=== PATIENT | male | born 1940 | race Caucasian/White ===

== ENCOUNTER → 2017-10-29 | Outpatient (CLI) | payer BC, OTHER, MEDICARE ==
[2017-10-29 09:18] LABS: BASO % 0.5 % (0.0-1.0); EOS # 0.2 10^3/uL (0.0-0.50); EOS % 3.8 % (0.0-3.0); HEMATOCRIT 43.2 % (42.0-52.0); HEMOGLOBIN 14.3 g/dl (13.5-17.5); IMMATURE GRANULOCYTE % 0.2 % (0-3.0); LYMPH # 1.6 10^3/uL (1.5-4.5); LYMPH % 29.8 % (24.0-44.0); MEAN CORPUSCULAR HEMOGLOBIN 30.1 pg (27.0-33.0); MEAN CORPUSCULAR HGB CONC 33.1 g/dl (32.0-36.5); MEAN CORPUSCULAR VOLUME 90.9 fl (80.0-96.0); MONO # 0.7 10^3/uL (0.0-0.8); MONO % 12.2 % (0.0-5.0); NEUTROPHILS # 2.9 10^3/uL (1.8-7.7); NEUTROPHILS % 53.5 % (36.0-66.0); PLATELET COUNT, AUTOMATED 177 10^3/uL (150-450); RED BLOOD COUNT 4.75 10^6/uL (4.30-6.10); RED CELL DISTRIBUTION WIDTH 13.2 % (11.5-14.5); WHITE BLOOD COUNT 5.5 10^3/uL (4.0-10.0)
[2017-10-29 10:22] LABS: ANION GAP 9 MEQ/L (8-16); BLOOD UREA NITROGEN 17 MG/DL (7-18); CALCIUM LEVEL 8.6 MG/DL (8.8-10.2); CARBON DIOXIDE LEVEL 28 MEQ/L (21-32); CHLORIDE LEVEL 107 MEQ/L (98-107); CHOLESTEROL LEVEL 133 MG/DL (<200); CHOLESTEROL RISK RATIO 3.325 (<5); CREATININE FOR GFR 0.77 MG/DL (0.70-1.30); GLOMERULAR FILTRATION RATE > 60.0 (>42); GLUCOSE, FASTING 100 MG/DL (70-100); HDL CHOLESTEROL 40 MG/DL (>40); LDL CHOLESTEROL 65.8 MG/DL (<100); NON-HDL-C 93 MG/DL; POTASSIUM SERUM 4.5 MEQ/L (3.5-5.1); SODIUM LEVEL 144 MEQ/L (136-145); TRIGLYCERIDES LEVEL 136 MG/DL (<150)
== END ==
LOC: M LAB 08:37
DX: I25.10 Atherosclerotic heart disease of native coronary artery without angina pectoris (principal)
CPT/HCPCS: 80061

== ENCOUNTER → 2018-04-23 | Outpatient (CLI) | payer BC, OTHER, MEDICARE ==
[2018-04-23 15:52] LABS: PROSTATIC SPECIFIC AG MONITOR 11.4 NG/ML (< 4.0)
== END ==
LOC: M LAB 14:31
DX: R97.20 Elevated prostate specific antigen [PSA] (principal)
CPT/HCPCS: 84153

== ENCOUNTER → 2018-04-25 | Outpatient (CLI) | payer BC, OTHER, MEDICARE ==
[2018-04-25 10:23] LABS: HEMATOCRIT 42.1 % (42.0-52.0); HEMOGLOBIN 13.9 g/dl (13.5-17.5); MEAN CORPUSCULAR HEMOGLOBIN 30.2 pg (27.0-33.0); MEAN CORPUSCULAR VOLUME 91.5 fl (80.0-96.0); PLATELET COUNT, AUTOMATED 200 10^3/uL (150-450); RED CELL DISTRIBUTION WIDTH 13.1 % (11.5-14.5); WHITE BLOOD COUNT 5.4 10^3/uL (4.0-10.0)
[2018-04-25 11:09] LABS: ALBUMIN 3.7 GM/DL (3.2-5.2); ALBUMIN/GLOBULIN RATIO 1.42 (1.00-1.93); ALKALINE PHOSPHATASE 90 U/L (45-117); ALT/SGPT 29 U/L (12-78); ANION GAP 3 MEQ/L (8-16); AST/SGOT 18 U/L (7-37); BILIRUBIN,TOTAL 0.4 MG/DL (0.2-1.0); BLOOD UREA NITROGEN 15 MG/DL (7-18); CALCIUM LEVEL 8.7 MG/DL (8.8-10.2); CARBON DIOXIDE LEVEL 31 MEQ/L (21-32); CHLORIDE LEVEL 106 MEQ/L (98-107); CREATININE FOR GFR 0.73 MG/DL (0.70-1.30); GLOMERULAR FILTRATION RATE > 60.0 (>42); GLUCOSE, FASTING 133 MG/DL (70-100); POTASSIUM SERUM 4.9 MEQ/L (3.5-5.1); SODIUM LEVEL 140 MEQ/L (136-145); TOTAL PROTEIN 6.3 GM/DL (6.4-8.2)
== END ==
LOC: M LAB 09:53
DX: I25.10 Atherosclerotic heart disease of native coronary artery without angina pectoris (principal)
CPT/HCPCS: 80053

== ENCOUNTER → 2018-09-12 | Outpatient (CLI) | payer BC, OTHER, MEDICARE ==
[~2018-09-12] MED LIST: ALLE180T33 PO; ASPI81TA26 PO; AVOD0.5C PO; BUDE180INH INH; CLEO300C2 PO; FLUTISP NARES; LISI-542 PO; MULTCAP PO; NITR0.4S14 SL; PLAV1TAB2 PO; PRIL20TA2 PO; SIMV40TA2 PO; VITA-122 PO; VITA500C24 PO
[2018-09-12 08:50] LABS: HEMOGLOBIN 14.5 g/dl (13.5-17.5); MEAN CORPUSCULAR HEMOGLOBIN 29.5 pg (27.0-33.0); MEAN CORPUSCULAR HGB CONC 32.2 g/dl (32.0-36.5); MEAN CORPUSCULAR VOLUME 91.5 fl (80.0-96.0); PLATELET COUNT, AUTOMATED 183 10^3/uL (150-450); RED BLOOD COUNT 4.92 10^6/uL (4.30-6.10); WHITE BLOOD COUNT 4.6 10^3/uL (4.0-10.0)
[2018-09-12 09:32] LABS: ALBUMIN 3.9 GM/DL (3.2-5.2); ALT/SGPT 25 U/L (12-78); BILIRUBIN,TOTAL 0.7 MG/DL (0.2-1.0); BLOOD UREA NITROGEN 17 MG/DL (7-18); CALCIUM LEVEL 8.6 MG/DL (8.8-10.2); CARBON DIOXIDE LEVEL 30 MEQ/L (21-32); CHLORIDE LEVEL 106 MEQ/L (98-107); CHOLESTEROL LEVEL 131 MG/DL (<200); CHOLESTEROL RISK RATIO 3.275 (<5); CREATININE FOR GFR 0.74 MG/DL (0.70-1.30); FREE T4 0.98 NG/DL (0.76-1.46); GLOMERULAR FILTRATION RATE > 60.0 (>42); GLUCOSE, FASTING 86 MG/DL (70-100); HDL CHOLESTEROL 40 MG/DL (>40); LDL CHOLESTEROL 67 MG/DL (<100); NON-HDL-C 91 MG/DL; POTASSIUM SERUM 4.5 MEQ/L (3.5-5.1); SODIUM LEVEL 141 MEQ/L (136-145); TOTAL PROTEIN 6.4 GM/DL (6.4-8.2); TRIGLYCERIDES LEVEL 118 MG/DL (<150)
== END ==
LOC: M LAB 07:25
PROVIDERS: ATTEND Family Medicine
DX: I25.10 Atherosclerotic heart disease of native coronary artery without angina pectoris (principal); G43.709 Chronic migraine without aura, not intractable, without status migrainosus; Z95.5 Presence of coronary angioplasty implant and graft; E78.2 Mixed hyperlipidemia; I65.29 Occlusion and stenosis of unspecified carotid artery

== ENCOUNTER → 2018-09-12 | Outpatient (CLI) | payer BC, OTHER, MEDICARE ==
[2018-09-13 16:03] LABS: PSA % FREE 17.2 % (.); PSA TOTAL 5.8 ng/mL (0.0-4.0)
== END ==
LOC: M LAB 07:28
PROVIDERS: ATTEND Nurse Practitioner Women's Health
DX: R97.20 Elevated prostate specific antigen [PSA] (principal)

== ENCOUNTER 2018-11-25 11:21 | Inpatient (IN) | payer BC, OTHER, MEDICARE ==
[~2018-11-25] VITALS: Ht 185.4 cm; Wt 94.1 kg
[2018-11-25 11:52] LABS: BASO % 0.5 % (0.0-1.0); EOS # 0.1 10^3/uL (0.0-0.50); EOS % 2.1 % (0.0-3.0); HEMATOCRIT 48.6 % (42.0-52.0); HEMOGLOBIN 15.9 g/dl (13.5-17.5); LYMPH # 1.7 10^3/uL (1.5-4.5); LYMPH % 26.1 % (24.0-44.0); MEAN CORPUSCULAR HEMOGLOBIN 29.6 pg (27.0-33.0); MEAN CORPUSCULAR HGB CONC 32.7 g/dl (32.0-36.5); MEAN CORPUSCULAR VOLUME 90.5 fl (80.0-96.0); MONO # 0.8 10^3/uL (0.0-0.8); MONO % 11.9 % (0.0-5.0); NEUTROPHILS # 3.9 10^3/uL (1.8-7.7); NEUTROPHILS % 59.2 % (36.0-66.0); PLATELET COUNT, AUTOMATED 203 10^3/uL (150-450); RED BLOOD COUNT 5.37 10^6/uL (4.30-6.10); WHITE BLOOD COUNT 6.6 10^3/uL (4.0-10.0)
--- NOTE | 2018-11-25 12:12 | REP ---
PORTABLE CHEST: AP portable view of the chest is performed and compared to prior study 04/29/2014. There is mild left base fibroatelectatic change. There is no acute infiltrate. The heart is normal in size. The mediastinal silhouette is unchanged. There are degenerative changes of the spine. IMPRESSION: No acute infiltrate. Electronically Signed by Raul Leroy MD 11/25/2018 05:34 P
[2018-11-25] MEDS ORDERED: METOPROLOL 5 MG/5 ML VIAL As Ordered ONE (12:14)
[2018-11-25] MEDS ORDERED: NS 1,000 ML IV ONE (12:15)
[2018-11-25] MEDS: METOPROLOL 5 MG/5 ML VIAL IV SCH ×3 (12:24→12:50)
[2018-11-25 12:25] LABS: ALBUMIN 3.8 GM/DL (3.2-5.2); ALT/SGPT 28 U/L (12-78); BILIRUBIN,DIRECT 0.2 MG/DL (0.0-0.2); BILIRUBIN,TOTAL 0.6 MG/DL (0.2-1.0); BLOOD UREA NITROGEN 21 MG/DL (7-18); CALCIUM LEVEL 9.2 MG/DL (8.8-10.2); CARBON DIOXIDE LEVEL 26 MEQ/L (21-32); CHLORIDE LEVEL 108 MEQ/L (98-107); CK-MB VALUE MASS 3.2 NG/ML (<3.6); CPK CREATINE PHOSPHOKINASE 85 U/L (39-308); CREATININE FOR GFR 0.81 MG/DL (0.70-1.30); GLOMERULAR FILTRATION RATE > 60.0 (>42); GLUCOSE, FASTING 147 MG/DL (70-100); LIPASE 101 U/L (73-393); MB/CK RELATIVE INDEX 3.76 (< OR =4); NT-PRO BNP 847 PG/ML (<450); POTASSIUM SERUM 4.3 MEQ/L (3.5-5.1); SODIUM LEVEL 139 MEQ/L (136-145); TOTAL PROTEIN 7.3 GM/DL (6.4-8.2); TROPONIN I < 0.02 NG/ML (< 0.10)
[2018-11-25] MEDS ORDERED: ISOVUE-370 76% 100ML VIAL (Q9967) As Ordered ONE (12:41)
[2018-11-25] MEDS ORDERED: DIGOXIN INJ 0.5 MG/2 ML AMP (J1160) IV STA (12:57)
[2018-11-25] MEDS ORDERED: NS 250 ML IV ONE (13:00)
--- NOTE | 2018-11-25 13:31 | REP ---
CT of the chest with IV contrast, CT pulmonary angiography protocol: There are no emboli in the pulmonary trunk or central pulmonary arteries. There are no emboli in the pulmonary lobe or segment branches. There are no infiltrates or pleural effusions. There are no lung masses or nodules. There is no mediastinal, hilar or axillary lymph node enlargement. The thoracic aorta is unremarkable. Cardiac size is upper normal. The visualized upper abdominal contents are unremarkable. Impression: There are no pulmonary emboli. Otherwise, essentially negative CT study of the chest. Electronically Signed by Raul Franklin MD 11/25/2018 01:22 P
[2018-11-25] MEDS ORDERED: APIXABAN 5 MG TAB (ELIQUIS) PO ONE (14:15)
--- NOTE | 2018-11-25 14:25 | REP ---
Right lower extremity deep vein duplex ultrasound: The deep veins of the right lower extremity demonstrate normal compression, normal Doppler color flow and normal Doppler waveforms with respiration and augmentation from the popliteal vein to the common femoral vein. Impression: There is no right lower extremity deep vein thrombus. Electronically Signed by Raul Franklin MD 11/25/2018 02:17 P
[2018-11-25] MEDS ORDERED: OMEP-218 PO (15:34)
[2018-11-25] MEDS ORDERED: ALBUTEROL SULFATE 2.5 MG/0.5 ML INH NEB SOLN INH PRN (17:15)
[2018-11-25] MEDS: METOPROLOL TART 25 MG TABLET PO SCH (18:06)
[2018-11-25 18:55] VITALS: BP 144/72
--- NOTE | 2018-11-25 19:13 | HPE ---
DATE OF ADMISSION: 11/25/2018 ADMISSION HISTORY AND PHYSICAL: ATTENDING PHYSICIAN: Dr. Thong Slaughter INDICATION/CHIEF COMPLAINT: Chest pain and dizziness. HISTORY OF PRESENT ILLNESS: This 78-year-old, (for the second time), father of four grown children, retired resident of [place] is well-known to my cardiology practice with ischemic and hypertensive heart disease status post threatened acute anterior wall myocardial infarction May 2013. - Echocardiographic evidence of left ventricular hypertrophy and left ventricular diastolic dysfunction with mildly dilated left atrium May 2013. - Holter monitor May 2013 showed underlying sinus rhythm/sinus bradycardia with first-degree atrioventricular (AV) block with rare isolated premature atrial contractions (PACs) and premature ventricular contractions (PVCs) and one brief nonsustained run of paroxysmal supraventricular tachycardia (PSVT). - Treadmill Cardiolite heart scan September 2015 showed fairly good exercise tolerance, completing 9 1/2 minutes of U[place], stopping with leg fatigue and shortness of breath but no chest pain with peak heart rate 167 beats per minute (bpm) and normal blood pressure response. No EKG evidence of myocardial ischemia and no arrhythmia. Left ventricular (LV) wall motion was normal and normal pulmonary uptake at peak exercise. Normal stress single photon emission computed tomography (SPECT) myocardial perfusion images. At this point, customarily, he does not feel restricted, walking for up to two miles daily without chest pain, shortness of breath, palpitations or dizziness. He was last seen in our office on 10/27/2018 with pulse rate 56 bpm (off negative chronotropic therapy), blood pressure 122/62, body mass index (BMI) 26.4 with no signs of congestion and EKG showing sinus bradycardia with first-degree AV block (IA interval 246 milliseconds) but otherwise normal-appearing tracing. This morning noticed a vague chest sensation and lightheadedness that persisted for at least an hour prior to his presentation to the emergency room at 11:21 a.m. Initial vital signs showed a heart rate of 143 beats per minute, blood pressure 173/102, respiratory rate 20 per minute, oxygen saturation 97% with no fever. EKG confirmed atrial fibrillation with a rapid ventricular response. The patient was given metoprolol 5 mg IV on two occasions with persistent rapid heart rate. He was then given digoxin 0.25 mg IV along with Eliquis 5 mg by mouth. Despite this combination of medical therapy, his average ventricular response remained relatively rapid. However, intermittently, he would have asystolic pauses of up to several seconds. In the supine position, the patient was asymptomatic. In light of his "tachy-yahaira" response to his atrial fibrillation, his known sinus node dysfunction and baseline marked first-degree AV block, he was referred to my cardiology practice for consideration of a permanent dual-chamber pacemaker to safely facilitate administration of negative chronotropic therapy. At this point, the patient claims to be unaware of any chest discomfort, palpitations or dizziness despite an ongoing somewhat rapid heart rate in the supine position. 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 Devi. History of gastroesophageal reflux disease. Smoking-induced hyperreactive airway disease. Benign prostatic hypertrophy with prostatism. Migraine illness. Prior skin cancer. Remote tonsillectomy and appendectomy. Degenerative joint disease with left knee arthroscopic surgery 1986, right 1990 and left 1993 rotator cuff tears requiring surgical repair. Excisional biopsy of skin lesion in the year 2013 and forehead 2015. Laser surgery for varicose veins February 2015. CORONARY RISK FACTORS: Advanced age. Prior weight problem. Hypercholesterolemia, hypertension, remote smoker (up to one pack per day for 15 years, having quit in 1979). Family history of premature coronary heart disease. No history of diabetes. Nonobstructive carotid vascular disease as mentioned. REVIEW OF SYSTEMS: Customarily does not feel lightheaded or dizzy. Denies any recent fever, chills or weight loss. Wears corrective lenses. No hearing problems. No recent productive cough or hemoptysis. On his omeprazole therapy, he has been free of any heartburn, dysphagia, abdominal pain or evidence of gastrointestinal (GI) bleeding despite his dual-antiplatelet therapy. History of arthralgia with bilateral hip discomfort with ambulation. Lightheadedness and dizziness but no actual fall or loss of consciousness. Bruises easily with his antiplatelet therapy but no significant bleeding. Environmental allergies/seasonal allergies. All other systems review is negative. MEDICATIONS: Home medications include: - lisinopril 5 mg twice a day - simvastatin 40 mg at bedtime - aspirin 81 mg daily - Plavix 75 mg daily - Pulmicort 0.25 mg per 2 mL twice a day - Ventolin inhaler two puffs four times a day as needed for dyspnea - Flonase one spray in each nostril daily as needed - Nitrostat 0.4 mg every five minutes as needed for chest pain - Prilosec 20 mg daily - Avodart 0.5 mg every other day - Carina 180 mg daily - vitamin D3 1000 units by mouth daily - multivitamin one tablet daily - vitamin C 1 gram daily ALLERGIES: PENICILLIN (swelling and shortness of breath). PHYSICAL EXAMINATION: CONSTITUTIONAL: Pleasant, talkative, elderly male lying comfortably with the head of the bed elevated 30 degrees. Medium body build. No pallor. VITAL SIGNS: Heart rate 116 beats per minute and irregularly irregular, blood pressure 130/70 supine, respiratory rate 16 per minute, oxygen saturation 98% on room air. Afebrile. Weight 206 pounds, height 73 inches, body mass index (BMI) 27.2. EYES: Normal conjunctivae and lids. No xanthelasma. EARS, NOSE, AND THROAT/MOUTH: Dentition in good repair. Normal oral moisture. No central cyanosis. NECK: Trachea midline. Thyroid not enlarged. Jugular veins were 2 cm above the sternal angle. RESPIRATORY: Slightly increased anteroposterior chest diameter with fair chest expansion. Good air entry over both lung lindquist with no current abnormal pulmonary adventitious sounds. CARDIOVASCULAR: Apical impulse at the mid clavicular line fifth intercostal space. S1 and S2 were variable in intensity. No audible gallop. No audible murmur. Normal carotid upstrokes but variable volume related to his arrhythmia. No bruits. Upper extremity pulses were symmetrical and normal. Abdominal aorta was not palpable. No abdominal bruits. Normal femoral pulses and pedal pulses. Moderate varicosities in both lower legs with no current dependent edema. EXTREMITIES: No clubbing, peripheral cyanosis, or splinter hemorrhages. GASTROINTESTINAL (GI): Soft, nontender abdomen with no hepatosplenomegaly. Normal bowel sounds. RECTAL EXAMINATION: Not indicated at this time. MUSCULOSKELETAL: Gait was not assessed at this time. No obvious joint deformities. Well-healed incisions, both shoulders following prior rotator cuff repairs. Muscular strength and tone appear to be normal. Spine curvature was normal. NEUROLOGIC/PSYCHOLOGIC: Bright, alert and orientated, gave a lucid history. Eye, facial, and extremity movements were symmetrical and normal. No abnormal movements. SKIN: No current rashes, ecchymotic lesions, pallor or icterus. INVESTIGATIONS: Portable upright chest x-ray reviewed independently shows at least borderline cardiomegaly allowing for this technique. Slightly unfolded thoracic aorta. Pulmonary vasculature appeared to be normal. No pleural effusion or localized infiltrate. Normal-appearing bony structures. Chest CT angiogram reviewed independently shows normal thoracic aortic size. Pulmonary trunk was mildly dilated 3.2 cm centimeters, left atrium was moderately increased, left ventricular size within normal limits, LV wall thickness upper limits of normal, slightly increased. Right ventricle and right atrium appear to be at least mildly increased. IVC size was at least upper limits of normal to mildly dilated. No pericardial effusion. No evidence of pulmonary embolism. No localized infiltrate or pleural effusions. EKG: Tracing today at 11:29 a.m. showed underlying atrial fibrillation with a somewhat rapid ventricular response averaging 127 bpm. Somewhat low voltages but otherwise normal-appearing tracing. As mentioned, rhythm new from 10/27/2018. Right lower extremity venous ultrasound showed no evidence of deep venous thrombosis. BLOOD WORK: Hemoglobin 15.9, a normal white blood cell count and platelet count. Normal electrolytes, BUN 21, creatinine 0.8, random glucose 147. Normal liver function studies and TSH of 1.05. Normal serum lipase, serum albumin 3.8, negative Troponin I, pro BNP level was elevated at 847. PROVISIONAL DIAGNOSIS: 1. Paroxysmal atrial fibrillation: Curiously despite his previously documented first-degree atrioventricular (AV) block, his ventricular response is quite rapid even with negative chronotropic therapy. In light of observed pauses, we are reluctant to push further negative chronotropic therapy excepting a ventricular rate of 110-120 for the time being. He was given a dose of Eliquis 5 mg by mouth earlier today but we will hold further doses for the time being. Long-term oral anticoagulant will be necessary in light of his age, hypertension, history of prior transient ischemic attacks (TIAs, glucose intolerance and elevated pro brain natriuretic peptide (BNP) level. Once permanent pacing leads are in his heart, it should be safe to consider additional negative chronotropic therapy/antiarrhythmic therapy. Should his rhythm persist during pacemaker implant, we have discussed the use of direct-current cardioversion. 2. AV block (unspecified): As mentioned has had at least moderate first-degree AV block dating back to 2013 along with recent evidence of sinus node dysfunction with resting heart rate of 56 off negative chronotropic therapy. We have observed intermittent marked pauses alternating with his rapid ventricular responses to atrial fibrillation. Permanent dual-chamber pacemaker implantation was recommended in order to safely administer negative chronotropic/antiarrhythmic therapy for his atrial tachyarrhythmia. The indication, procedure and potential risks were discussed with the patient and his and daughter who appear to understand and agree. This has been tentatively scheduled for tomorrow afternoon using monitored local anesthesia. 3. Coronary artery disease ([place] vessel)/prior threatened anterior wall myocardial infarction-post left anterior descending (LAD) stenting: Did have some chest pressure with his rapid ventricular response to atrial fibrillation but despite the duration of this sensation, there was no EKG ST/T wave change and so far troponin I levels have been negative. We will introduce at least low- dose metoprolol 25 mg by mouth every six hours but we will hold this for a heart rate less than 110 for the time being. We will continue with his protective lisinopril and simvastatin but his aspirin and Plavix have been at least temporarily placed on hold. Followup EKGs and troponin I levels have been requested. 4. Hypertensive heart disease (benign with heart failure)/heart failure (diastolic dysfunction/acute): Describes lightheadedness and effort intolerance with his atrial tachyarrhythmia as described. Pro BNP level is also elevated, likely as a response to his atrial tachyarrhythmia and his known underlying left ventricular diastolic dysfunction. I do not believe diuretic therapy is necessary at this time but he will be kept on a modest salt intake restriction. Optimal management will be control of his rapid ventricular rate and continued blood pressure control. I have introduced metoprolol as mentioned above and we will continue with his lisinopril 5 mg twice a day with hold for blood pressure less than 130. 5. Glucose intolerance: With the acute stress of his tachyarrhythmia, his random blood sugar was elevated but recent blood work 09/12/2018 showed a fasting glucose of only 86. We will continue to monitor this for the time being. 6. Hyperlipidemia: On his current statin therapy and dietary measures with regular exercise, fasting lipid profile 09/12/2018 showed a total cholesterol of only 131, high-density lipoprotein (HDL) 40, low-density lipoprotein (LDL) 67 with total/HDL ratio of 3.3 and triglyceride 118. Our intent is to continue with these measures and statin therapy. The above impressions and plans were discussed with the patient and his family who understand and agree. KESHIA
[2018-11-25 20:00] VITALS: BP 108/57
[2018-11-25] MEDS: SIMVASTATIN 40 MG TAB PO SCH (20:53)
[2018-11-25] MEDS: DOCUSATE SODIUM 100 MG CAP PO SCH (20:53)
[2018-11-25] MEDS: LISINOPRIL 5 MG TAB PO SCH (20:54)
[2018-11-25] MEDS ORDERED: DUTASTERIDE 0.5 MG CAP (AVODART) PO SCH (21:00)
[2018-11-26] VITALS (9 sets, daily range): BP systolic 106–153; BP diastolic 56–87
[2018-11-26] MEDS: BUDESONIDE 0.25 MG/2 ML INHALATION SUSPENSION INH SCH ×3 (01:42→20:39)
[2018-11-26] MEDS: METOPROLOL TART 25 MG TABLET PO SCH ×3 (06:00→11:36)
[2018-11-26] MEDS ORDERED: LR 1,000 ML IV SCH ×2 (06:00→19:45)
[2018-11-26] MEDS: DOCUSATE SODIUM 100 MG CAP PO SCH ×2 (08:18→20:13)
[2018-11-26] MEDS: OMEPRAZOLE 20 MG CAP PO SCH (08:19)
[2018-11-26] MEDS: LISINOPRIL 5 MG TAB PO SCH ×2 (08:19→20:13)
[2018-11-26] MEDS: FEXOFENADINE 60 MG TAB PO SCH (08:20)
--- NOTE | 2018-11-26 08:58 | ECGEPIP ---
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
--- NOTE | 2018-11-26 09:04 | ECGEPIP ---
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
--- NOTE | 2018-11-26 09:04 | ECGEPIP ---
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
--- NOTE | 2018-11-26 13:10 | ECHO ---
DATE OF PROCEDURE: 11/26/2018 DATE OF : 1940 AGE: 78 GENDER: Male HEIGHT: 73 inches WEIGHT: 205 pounds BODY SURFACE AREA: 2.17 m2 INPATIENT: PCU Room 3224 REFERRING PHYSICIAN: Dr. Slaughter INDICATION: Abnormal EKG - new onset atrial fibrillation. MEASUREMENTS: 2-D Measurements: RV: 4.2 cm LV: 4.0 cm Septum: 1.1 cm Posterior wall: 1.1 cm Aortic root: 3.5 cm LA: 4.0 cm LVEF: 65-70% Doppler Measurements: AV: 1.23 m/s LVOT: 1.17 m/s LVOT diameter: 1.9 cm MV: E 141, A 92, EA ratio 1.5 Early mitral deceleration time: 479 ms E prime: 5.6, A prime: 6, E/E prime ratio: 25.4 PCWP: 29 mmHg PV: 0.8 m/s Pulmonary artery acceleration time: 106 ms RVSP: 41 mmHg IVC: 2.6 cm COMMENTS: Sinus bradycardia with first-degree AV block. No narrow QRS complexes. Technically challenging study in light of the patient's body habitus but diagnostically useful information was still obtained. Normal left ventricular size with wall thickness upper limits of normal with normal to hyperkinetic wall motion. Mildly dilated left atrium with Doppler evidence of an impairment of LV diastolic function (pseudonormalization of LV filling) and Doppler evidence of an elevated mean left atrial pressure. Mildly dilated right heart chambers with normal right ventricular free wall motion with Doppler evidence of at least moderate pulmonary hypertension. Moderately dilated IVC with adequate respiratory collapse suggestive of a central venous pressure of approximately 10 mmHg. Subtle aortic valvular sclerosis without functional abnormality. Normal aortic root diameter. Moderate mitral annular calcification with slight thickening of the mitral leaflets but adequate leaflet excursion and no posterior systolic buckling. No functional mitral valvular disorder. Normal appearing tricuspid valve with at least mild insufficiency. No apparent intracardiac mass or pericardial effusion.
[2018-11-26] MEDS ORDERED: VANCOMYCIN HCL 1,000 MG, VIAL MATE ADAPTER 1 EACH in D5W 250 ML IV ONE ×2 (14:00→23:30)
[2018-11-26] MEDS ORDERED: AMIODARONE HCL 360 MG/200 ML PREMIXED BAG (NEXTERONE) As Ordered ONE (16:22)
[2018-11-26] MEDS ORDERED: BACITRACIN PWD 50,000 UNITS VIAL As Ordered ONE (16:23)
[2018-11-26] MEDS ORDERED: LIDOCAINE 1% SDV INJ 30 ML VIAL As Ordered ONE (16:23)
[2018-11-26] MEDS ORDERED: ISOVUE-300 61% 50ML VIAL (Q9967) As Ordered ONE (16:23)
[2018-11-26] MEDS ORDERED: ONDANSETRON 4MG/2ML VIAL (J2405) As Ordered ONE (16:42)
[2018-11-26] MEDS ORDERED: MIDAZOLAM INJ 2 MG/2 ML VIAL (J2250) As Ordered ONE (16:42)
[2018-11-26] MEDS ORDERED: fentaNYL 100 MCG/2 ML INJECTION (J3010) As Ordered ONE (16:42)
[2018-11-26] MEDS ORDERED: LIDOCAINE 2% INJ 100 MG/5 ML SDV (FOR ANES.) As Ordered ONE (16:42)
[2018-11-26] MEDS ORDERED: PROPOFOL 200 MG/20 ML VIAL As Ordered ONE (16:42)
[2018-11-26] MEDS ORDERED: ATENOLOL 25 MG TAB As Ordered ONE (18:43)
[2018-11-26] MEDS ORDERED: ATENOLOL 50 MG TAB PO ONE (18:45)
[2018-11-26] MEDS ORDERED: ONDANSETRON 4MG/2ML VIAL (J2405) IV PRN (19:45)
[2018-11-26] MEDS ORDERED: PERCOCET 5MG/325MG TAB PO PRN (19:45)
[2018-11-26] MEDS ORDERED: fentaNYL 100 MCG/2 ML INJECTION (J3010) IV PRN (19:45)
[2018-11-26] MEDS: SIMVASTATIN 40 MG TAB PO SCH (20:12)
[2018-11-26] MEDS ORDERED: ATENOLOL 50 MG TAB PO SCH (21:00)
[2018-11-26] MEDS ORDERED: ACETAMINOPHEN TAB 650MG DOSE (2X325MG) PO PRN (21:15)
--- NOTE | 2018-11-26 22:20 | ECGEPIP ---
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 Paced QRS complexes with leftward axis and Left bundle branch block configuration in keeping with RV apical stimulation Pacing new from earlier the same day Electronically Signed on 11-26-2018 22:20:31 EDT by Thong Slaughter
[2018-11-27] VITALS: BP 154/85
[2018-11-27 04:00] VITALS: BP 134/75
[2018-11-27] MEDS: traMADol 50 MG TAB PO PRN ×2 (05:06→12:23)
[2018-11-27] MEDS: BUDESONIDE 0.25 MG/2 ML INHALATION SUSPENSION INH SCH (07:39)
--- NOTE | 2018-11-27 07:41 | REP ---
REASON FOR EXAM: Postoperative. COMPARISON EXAM: 11/25/2018. Since the last examination a dual chambered bipolar pacemaker device has been placed. The leads are appropriate. Cardiomediastinal silhouette is unchanged. No new abnormal lung opacities have developed. The pleural angles again seen to be sharp. The osseous structures are stable and intact. IMPRESSION: Status post pacemaker insertion. No acute cardiopulmonary disease. Electronically Signed by Shaun Jenkins DO 11/27/2018 10:20 A
[2018-11-27 08:00] VITALS: BP 135/80
[2018-11-27] MEDS: FEXOFENADINE 60 MG TAB PO SCH (08:06)
[2018-11-27 08:07] VITALS: BP 135/80
[2018-11-27] MEDS: OMEPRAZOLE 20 MG CAP PO SCH (08:07)
[2018-11-27] MEDS: DOCUSATE SODIUM 100 MG CAP PO SCH (08:07)
[2018-11-27] MEDS: LISINOPRIL 5 MG TAB PO SCH (08:07)
--- NOTE | 2018-11-27 08:09 | RO ---
DATE OF PROCEDURE: 11/26/2018 PREOPERATIVE DIAGNOSES: 1. Tachy-yahaira syndrome. 2. AV intermittent high-grade AV block. 3. Paroxysmal atrial fibrillation with intermittent rapid ventricular response. POSTOPERATIVE DIAGNOSES: 1. Tachy-yahaira syndrome. 2. AV intermittent high-grade AV block. 3. Paroxysmal atrial fibrillation with intermittent rapid ventricular response. PROCEDURE: Implantation of permanent dual-chamber pacemaker. IMPLANTING PEST CONTROL WORKER HELPER: Dr. Thong Slaughter ANESTHESIOLOGIST: Dr. Gorman TYPE OF ANESTHESIA: Monitored local anesthesia. DESCRIPTION OF PROCEDURE: With the patient in the fasting state having received vancomycin 1 gram IV infusion over 1 hour preoperatively and having signed informed consent, he was taken to the operating theater. Numerous skin electrodes were applied to facilitate continuous electrocardiographic monitoring. The left subclavian region was prepped and draped in the usual fashion and the skin was infiltrated with 1% Xylocaine. The left subclavian vein, the left axillary vein was then catheterized using the micropuncture technique. A 5 cm linear incision was made several centimeters below and parallel to the left clavicle. Dissection was carried down to the level of the pectoralis fascia and a pocket was fashioned below the level of the incision line. Two bipolar screw-in active fixation, steroid eluting pacing leads were then positioned to the distal right ventricular septum and high right atrial appendage under fluoroscopic and electrocardiographic control. The right ventricular lead ([employer] model number [id number]/58, serial number [id number]) measurements were: Stimulation threshold 0.5 V/0.4 ms/impedance 668 ohms. The R wave amplitude measured 9.0 mV. The atrial lead ([employer] model number [id number], serial number [id number]) measurements were: Stimulation threshold 0.8 V/0.4 ms/impedance 432 ohms. The P wave amplitude measured 2.5 mV. These leads were secured in position with sleeves sutured at their insertion site. They were then connected to a dual-chamber pulse generator ([employer] - Assurity MRI compatible, model number [id number], serial number [id number]) and appropriate DDD pacing was documented. The device was then placed in the pocket and secured in position with a suture through the upper right-hand corner of the epoxy header. The subcutaneous tissues were approximated using a running chromic suture and skin was closed using meli. A dry dressing was applied and the patient was returned to recovery room in good condition. No apparent complications. Estimated blood loss of 10 mL. Postoperative upright chest x-ray showed good lead position with no pneumothorax. His postoperative EKG confirmed appropriate AV sequentially paced rhythm. Our plan at this time is to now introduce combination digoxin and atenolol negative chronotropic therapy to control his ventricular response with any future paroxysmal atrial fibrillation. We have activated the AF suppression mode of his pacemaker. He will be monitored overnight on telemetry and will receive an additional dose of vancomycin 1 gram IV infusion 12 hours after his first dose. We anticipate his probable discharge tomorrow afternoon.
[2018-11-27] MEDS ORDERED: DIGOXIN 0.25 MG TAB PO SCH (09:00)
[2018-11-27] MEDS ORDERED: ATENOLOL 50 MG TAB PO SCH (09:00)
--- NOTE | 2018-11-27 09:02 | REP ---
PA and lateral chest: Comparison is the portable chest of 11/26/2018. There is no pneumothorax or hemothorax. The lung lindquist otherwise clear. Cardiac size is upper normal. The jesus, mediastinum and skeletal structures are unremarkable. There is a dual-chamber pacemaker entering from left, unchanged. There are skin meli adjacent to the pacemaker power pack, unchanged. Impression: Negative PA and lateral chest. Electronically Signed by Raul Franklin MD 11/27/2018 08:53 A
[2018-11-27 12:00] VITALS: BP 162/80
[2018-11-27] MEDS ORDERED: oxyBUTYnin 5 MG TAB PO PRN (12:45)
[2018-11-27] MEDS ORDERED: TAMSULOSIN 0.4 MG CAP PO ONE (13:00)
[2018-11-27 16:00] VITALS: BP 118/62
[2018-11-27] MEDS ORDERED: DIGO0.25 PO (17:40)
[2018-11-27] MEDS ORDERED: ELIQ5TAB PO (17:40)
[2018-11-27] MEDS ORDERED: ATEN50TA2 PO (17:40)
--- NOTE | 2018-11-27 19:05 | ECGEPIP ---
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 Electronically Signed on 11-27-2018 19:05:08 EDT by Thong Slaughter
--- NOTE | 2018-11-27 22:12 | SMCUROLCON ---
Urology Consultation General Date of Consultation 11/27/18 Reason For Consultation This patient is seen for Avb (Atrioventricular Block) Paroxysmal Atrial Fib. History of Present Illness This is a 78 y/o M w/ a PMH significant for CAD, CVD, psoriasis, BPH (s/p TURP [place] 2006), who is now experiencing difficulty voiding POD1 s/p pacemaker placement. The patient notes urinary frequency which did not improve w/ oxybutynin 5mg. He notes the onset of dysuria and difficulty emptying his bladder. He is on avodart for BPH and this was resumed today. He is not normally on flomax but was started on this earlier today given his new onset urinary complaints. He denies hematuria and does not feel that he had any difficulty voiding prior to surgery yesterday. He did not have a catheter placed intraop. Past Medical History Medical History see HPI Surgical Hstory TURP 2006 Appendectomy Bilateral rotator cuff repair Cardiac catherization at [facility]. Followed by Drug-eluting stent implantation to the left anterior descending artery 05/13/2013 JOANN to LAD 05/26 left lower ear skin cancer removal 03/01/14 varicose veins bilat legs in IR (Dr Dangelo) 02/2015 Medications Current Medications Current Medications Acetaminophen (Tylenol Tab) 650 mg Q6HP PRN PO INCISIONAL PAIN Last administered on 11/26/18at 21:44; Start 11/26/18 at 21:15 Albuterol Sulfate (Proventil Neb) 2.5 mg Q2HP PRN INH SOB/WHEEZING; Start 11/25/18 at 17:15 Atenolol (Tenormin) 50 mg BID PO ; Start 11/26/18 at 21:00; Stop 11/26/18 at 21:00; Status DC Atenolol (Tenormin) 50 mg BID PO Last administered on 11/26/18at 18:50; Start 11/27/18 at 09:00 Budesonide (Pulmicort) 0.25 mg RBID INH Last administered on 11/26/18at 20:39; Start 11/25/18 at 20:00 Digoxin (Lanoxin) 0.25 mg DAILY PO Last administered on 11/27/18at 08:06; Start 11/27/18 at 09:00 Digoxin (Lanoxin) 0.25 mg STAT STAT IV Last administered on 11/25/18at 13:33; Start 11/25/18 at 12:57; Stop 11/25/18 at 12:58; Status DC Docusate Sodium (Colace) 100 mg BID PO Last administered on 11/27/18at 08:07; Start 11/25/18 at 21:00 Dutasteride (Avodart) 0.5 mg Q2D@2100 PO Last administered on 11/25/18at 20:56; Start 11/25/18 at 21:00 Fentanyl Citrate (Sublimaze) 25 mcg Q5MP PRN IV MODERATE PAIN (PS 4-7); Start 11/26/18 at 19:45; Stop 11/26/18 at 20:45; Status DC Fexofenadine HCl (Carina) 180 mg DAILY PO Last administered on 11/27/18at 08:06; Start 11/26/18 at 09:00 Home Med (Med Rec Complete!) ASDIRECTED XX ; Start 11/25/18 at 15:45; Stop 11/25/18 at 15:45; Status DC Lactated Ringer's 1,000 ml @ 50 mls/hr Q20H IV Last administered on 11/26/18at 06:18; Start 11/26/18 at 06:00; Stop 11/26/18 at 18:03; Status DC Lactated Ringer's 1,000 ml @ 75 mls/hr [id number] IV ; Start 11/26/18 at 19:45; Stop 11/26/18 at 20:45; Status DC Lisinopril (Prinivil) 5 mg BID PO Last administered on 11/27/18at 08:07; Start 11/25/18 at 21:00 Metoprolol Tartrate (Lopressor) 5 mg Q5M IV Last administered on 11/25/18at 12:50; Start 11/25/18 at 12:15; Stop 11/25/18 at 15:40; Status DC Metoprolol Tartrate (Lopressor) 25 mg Q6H PO Last administered on 11/25/18at 18:06; Start 11/25/18 at 18:00; Stop 11/26/18 at 18:03; Status DC Omeprazole (PriLOSEC) 20 mg DAILY PO Last administered on 11/27/18at 08:07; Start 11/26/18 at 09:00 Ondansetron HCl (ZOFRAN INJection) 4 mg Q4HP PRN IV NAUSEA OR VOMITING; Start 11/26/18 at 19:45; Stop 11/26/18 at 20:45; Status DC Oxybutynin Chloride (Ditropan) 5 mg TIDP PRN PO BLADDER SPASM Last administered on 11/27/18at 12:46; Start 11/27/18 at 12:45 Oxycodone/ Acetaminophen (Percocet 5mg/ 325mg Tablet) 1 tab ASDIRECTED PRN PO MILD/MODERATE PAIN (PS 1-7); Start 11/26/18 at 19:45; Stop 11/26/18 at 20:45; Status DC Simvastatin (Zocor) 40 mg QHS PO Last administered on 11/26/18at 20:12; Start 11/25/18 at 21:00 Tamsulosin HCl (Flomax) 0.4 mg DAILY PO ; Start 11/28/18 at 09:00 Tramadol HCl (Ultram) 50 mg Q6HP PRN PO MODERATE PAIN (PS 5-7) Last administered on 11/27/18at 12:23; Start 11/26/18 at 21:30 Allergies Allergies: Coded Allergies: Penicillins (Verified Allergy, Intermediate, DIZZINESS, SWELLING, 11/25/18) Review of Systems General: Denies: Chills, Night Sweats, Fatigue, Malaise, Normal Appetite, Other Symptoms Constitutional: Denies: Fever, Chills, Sweats, Weakness, Malaise, Other Skin: Denies: Rash, Lesions, Breakdown, Nail Changes Pulmonary: Denies: Dyspnea, Cough Cardiovascular: Denies Chest Pain Gastrointestinal: Denies: Nausea, Vomiting, Abdominal Pain Genitourinary: Reports: Dysuria, Frequency, Retention Musculoskeletal: Denies: Neck Pain, Back Pain Psych: Reports: Mood Normal Physical Examination General Exam: Alert Chest Exam: Normal air movement Heart Exam: Rate Normal Abdomen Exam: Soft Skin Exam: Nl turgor and temperature Psych Exam: Mood NL Vital Signs/I&O Vital Signs Date Time Temp Pulse Resp B/P (MAP) Pulse Ox O2 Delivery O2 Flow Rate FiO2 11/27/18 16:00 97.2 66 20 118/62 (80) 94 11/25/18 17:45 Room Air I&O- Last 24 Hours up to 6 AM 11/27/18 06:00 Intake Total 1600 ml Output Total 1300 ml Balance 300 ml Laboratory Data 24H Labs Laboratory Tests 2 11/27/18 15:05: Urine Color REDH, Urine Appearance CLEAR, Urine pH 6.0, Urine Specific [place] 1.009, Urine Protein NEGATIVE, Urine Glucose (UA) NEGATIVE, Urine Ketones NEGATIVE, Urine Blood 3+H, Urine Nitrite NEGATIVE, Urine Bilirubin NEGATIVE, Urine Urobilinogen 0.2, Urine Leukocyte Esterase NEGATIVE, Urine WBC (Auto) 28H, Urine RBC (Auto) TNTCH, Urine Hyaline Casts (Auto) 0, Urine Bacteria (Auto) 1+H, Urine Squamous Epithelial Cells 0, Urine Sperm (Auto) Microbiology Microbiology 11/27/18 Urine Culture, Received Pending Assessment This is a 78 y/o M POD1 s/p pacemaker placement now having urinary retention. I discussed that his symptoms might be transient and related to the anesthesia received for his procedure. I recommended putting him on flomax 0.4mg qhs and placing a catheter. He was in agreement. Plan - start flomax and continue on discharge - place 16Fr catheter - send urine for UA and culture - will arrange f/u in our office next week for catheter removal and voiding trial THERESE TAYLOR MD Nov 27, 2018 18:19
--- NOTE | 2018-11-28 07:25 | DSES ---
DATE OF ADMISSION: 11/25/2018 DATE OF DISCHARGE: 11/27/2018 ATTENDING PHYSICIAN: Dr. Thong Slaughter. PRIMARY CARE PHYSICIAN: Dr. Steinberg. CLINICAL SUMMARY: This 78-year-old retired resident of [place] with ischemic and hypertensive heart disease presented to the hospital with chest discomfort and profound weakness. Initial vital signs demonstrated tachyarrhythmia with EKG confirming atrial fibrillation and rapid ventricular response. Last EKG in our office 10/27/2018 showed a pulse rate of only 56 bpm off negative chronotropic therapy with first-degree atrioventricular (AV) block. In light of his rapid rate and chest discomfort, he was given metoprolol intravenous (IV) 5 mg times two, with metoprolol 25 mg by mouth and digoxin 0.25 mg along with Eliquis 5 mg by mouth. Unfortunately, his rate remained relatively rapid for the most part; however, he would intermittently have profound pauses. He was referred to my cardiology service for consideration of permanent dual-chamber pacemaker to safely facilitate administration of negative chronotropic therapy for his atrial fibrillation and rapid rate. Please see my admission history for further details. INVESTIGATIONS IN COURSE IN HOSPITAL: At the time I saw him, he was comfortable and unaware of his ongoing, somewhat rapid ventricular response atrial fibrillation. Vital signs showed a pulse rate of 116 bpm with blood pressure 130/70, respiratory rate 16, oxygen saturation 98% on room air. Neck veins did not appear to be elevated. His chest was clear. Spring was at the midclavicular line with variable heart sounds. No audible murmur. Had moderate varicosities both lower legs with 1 mm pitting edema one third up both lower legs. No sacral pitting edema. Portable upright chest x-ray showed at least borderline cardiomegaly, slightly unfolded thoracic aorta, but fairly normal appearing pulmonary vasculature with no localized infiltrate or pleural effusion. Chest CT angiogram was performed because of his chest pain and lower leg swelling with varicose veins. This showed a moderately dilated left atrium, normal left ventricular size, at least mildly dilated right heart chambers and inferior vena cava (IVC) size. There was no pericardial effusion. Normal appearing thoracic aorta. No valvular calcification. Lung lindquist were clear with no evidence of pulmonary embolism. EKGs: The tracing from our office 10/27/2018 showed a sinus bradycardia at 56 beats per minute with marked first-degree AV block, 246 milliseconds, but was otherwise fairly normal. EKG on presentation at 11:29 a.m. showed atrial fibrillation with rapid ventricular response averaging about 100-127 bpm with subtle repolarization abnormalities. Right lower leg venous ultrasound showed no evidence of deep venous thrombosis (DVT). Blood work showed a normal complete blood count, electrolytes, BUN 21, creatinine 0.8, random glucose 147. Liver function studies were normal. TSH was normal. Negative Troponin-I level with mildly elevated pro-BNP level of 847. In light of his underlying baseline conduction tissue disease (sinus node and AV jena dysfunction) and his current rapid atrial fibrillation, we discussed permanent dual-chamber pacemaker implantation so that negative chronotropic therapy could be safely administered. The indication, procedure and risks were discussed with he and his family. They appeared to agree. The procedure was planned for the following day because of his Eliquis administration. Later the same day, he did convert to a sinus mechanism with rate 45 beats per minute, UT interval of 289 milliseconds, left atrial conduction disturbance, somewhat low limb voltage, but otherwise unchanged from earlier the same day. Followup Troponin-I levels were consistently negative. Prior to his tentative pacemaker implant, an echocardiogram/Doppler study was performed, which showed borderline left ventricular hypertrophy with normal to hyperkinetic left ventricular wall motion, a mildly dilated left atrium with impairment of left ventricular (LV) diastolic function and mildly elevated estimated mean left atrial pressure. Right heart chamber sizes were increased with normal right ventricular free wall motion and moderate pulmonary hypertension (right ventricular systolic pressure measuring 41 mmHg) with dilated IVC of 2.6 cm with adequate respiratory collapse. There was aortic valvular sclerosis without functional abnormality with normal aortic root diameter. There was moderate mitral annular calcification with slight thickening of the mitral leaflets, but adequate leaflet excursion and no posterior systolic buckling. No apparent functional valvular abnormality. Normal appearing tricuspid valve with at least mild insufficiency. No pericardial effusion or intracardiac mass. 11/26/2018, he underwent implantation of permanent dual-chamber pacemaker under monitored local anesthesia, device name [employer] - Assurity MRI compatible, model number [id number]. Excellent intracardiac electrograms and pacing thresholds were obtained. No apparent complications, with postoperative portable upright and PA and left lateral chest x-ray following his implant showing good lead position with no pneumothorax. EKG and EKG monitoring showed appropriate dual-chamber pacemaker function programmed, DDD. Following device implant, his digoxin and beta-danica were resumed with good effect. Plan was to start him back on Eliquis oral anticoagulation 11/28/2018 at 09:00 p.m. Complete pacemaker interrogation was performed today, again confirming excellent intracardiac electrograms and pacing thresholds. We were able to activate his auto capture functions. His incision today appears to be healing well and he had minimal incisional discomfort. He was able to ambulate without palpitations, chest discomfort or dizziness. Frustratingly, early in the day of his discharge, he began having intense bladder spasms with acute urinary retention. Consultation was placed with Dr. Childress, urology, and he was started on Flomax and oxybutynin with good effect. A catheter was placed showing a residual of [address] Childress elected to keep a Alvarez catheter in place and he will be seen in followup in his office in approximately one week. He will continue on his Avodart. On his digoxin and atenolol with atrial fibrillation suppression mode activated, the patient remained free of recurrent atrial tachyarrhythmia while in hospital. FINAL DIAGNOSES 1. Paroxysmal atrial fibrillation with rapid ventricular response. 2. 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 3. AV block (first-degree) with higher grade AV block provoked by negative chronotropic therapy. 4. Coronary artery disease (saxman vessel) status post threatened anterior wall myocardial infarction/post left anterior descending (LAD) coronary artery stenting - based on his EKG and echocardiographic appearance, the patient has not sustained any permanent myocardial injury. 5. Hypertensive heart disease (benign with heart failure)/heart failure (diastolic dysfunction/acute): Developed some effort intolerance and dizziness prompted by his underlying left ventricular diastolic dysfunction and loss of atrial kick and rapid ventricular response. Though his clinical and radiographic examination did not show pulmonary congestion, his pro-BNP level was elevated. Current blood pressure is controlled with combination atenolol and lisinopril. 6. Pulmonary heart disease (chronic): His CT scan and echocardiogram demonstrate least moderate pulmonary hypertension with right heart chamber enlargement and a dilated inferior vena cava that appears out of keeping with the degree of left ventricular disease. We were unable to arrange for nocturnal oximetry prior to his discharge from hospital. He does have impressive bilateral lower extremity varicose veins, but current venous ultrasound showed no evidence of DVT and his chest CT angiogram showed no evidence of acute pulmonary embolism. This latter possibility will be covered with his oral anticoagulation anyway. DISCHARGE MEDICATIONS AND RECOMMENDATIONS: Patient was encouraged to perform activities as tolerated except for light activity with his left arm until his meli are removed in my office 12/05/2018 at 02:15 p.m. He was also requested to avoid getting his incision wet until that time and to contact us promptly for any abnormal erythema, swelling or discharge. His diet should resume no added salt, low fat low cholesterol. His medications at this time will now include: - digoxin 0.25 mg by mouth daily - atenolol 50 mg by mouth twice a day - Eliquis 5 mg twice a day starting tomorrow evening - lisinopril 5 mg twice a day - simvastatin 40 mg nightly - aspirin 81 mg daily - omeprazole 20 mg by mouth daily - multivitamin one tablet daily - Avodart 0.5 mg by mouth every other day - Flomax 0.4 mg by mouth daily - oxybutynin as directed by urology - Carina 180 mg by mouth daily - vitamin D3 1000 international units daily - Pulmicort inhaler two puffs twice a day - ascorbic acid 1 gram daily - nitroglycerin 0.4 mg sublingual every 5 minutes as needed chest pain. His clopidogrel has been discontinued. Dr. Childress will arrange for office followup in one week.
[2018-11-28] MEDS ORDERED: TAMSULOSIN 0.4 MG CAP PO SCH (09:00)
== END 2018-11-27 19:06 | disposition home or self-care (01) | DRG 201 ==
LOC: M ED 11:21 → M ED INP 16:59 → M PCU 18:50
PROVIDERS: ADMIT Internal Medicine Cardiovascular Disease; ATTEND Internal Medicine Cardiovascular Disease
PROC: 02H60JZ Insertion of Pacemaker Lead into Right Atrium, Open Approach (ICD-10-PCS; 2018-11-26)
PROC: 02HK0JZ Insertion of Pacemaker Lead into Right Ventricle, Open Approach (ICD-10-PCS; 2018-11-26)
PROC: 0JH606Z Insertion of Pacemaker, Dual Chamber into Chest Subcutaneous Tissue and Fascia, Open Approach (ICD-10-PCS; principal; 2018-11-26 17:00)
DX: I49.5 Sick sinus syndrome (principal); I50.31 Acute diastolic (congestive) heart failure; I27.20 Pulmonary hypertension, unspecified; I25.5 Ischemic cardiomyopathy; I48.0 Paroxysmal atrial fibrillation; G43.909 Migraine, unspecified, not intractable, without status migrainosus; E78.5 Hyperlipidemia, unspecified; I44.0 Atrioventricular block, first degree; I25.10 Atherosclerotic heart disease of native coronary artery without angina pectoris; I11.0 Hypertensive heart disease with heart failure; I83.90 Asymptomatic varicose veins of unspecified lower extremity; R33.9 Retention of urine, unspecified; L40.9 Psoriasis, unspecified; K21.9 Gastro-esophageal reflux disease without esophagitis; N40.1 Benign prostatic hyperplasia with lower urinary tract symptoms; Z85.828 Personal history of other malignant neoplasm of skin; Z79.02 Long term (current) use of antithrombotics/antiplatelets; Z79.899 Other long term (current) drug therapy; Z79.82 Long term (current) use of aspirin

== ENCOUNTER → 2018-12-10 | Outpatient (CLI) | payer BC, OTHER, MEDICARE ==
[~2018-12-10] MED LIST changes: +ATEN50TA2 PO; +DIGO0.25 PO; +ELIQ5TAB PO; +OMEP-218 PO
== END ==
LOC: M LAB 07:42
PROVIDERS: ATTEND Physician Assistant
DX: I48.0 Paroxysmal atrial fibrillation (principal)

== ENCOUNTER → 2018-12-12 | Outpatient (REF) | payer OTHER, BC, MEDICARE ==
[2018-12-13 14:07] LABS: ANTINUCLEAR ANTIBODIES DIRECT Negative (Negative)
== END ==
LOC: M LABNEURO 09:16
PROVIDERS: ATTEND Psychiatry & Neurology Neurology
DX: G43.909 Migraine, unspecified, not intractable, without status migrainosus (principal)

== ENCOUNTER → 2018-12-23 | Outpatient (CLI) | payer BC, OTHER, MEDICARE ==
[2018-12-23 08:25] LABS: BLOOD UREA NITROGEN 18 MG/DL (7-18); CREATININE FOR GFR 0.86 MG/DL (0.70-1.30); GLOMERULAR FILTRATION RATE > 60.0 (>42)
== END ==
LOC: M LAB 07:37
PROVIDERS: ATTEND Psychiatry & Neurology Neurology
DX: I10 Essential (primary) hypertension (principal)

== ENCOUNTER → 2018-12-25 | Outpatient (CLI) | payer BC, OTHER, MEDICARE ==
[~2018-12-25] MED LIST changes: +ISOVUE-370 76% 100ML VIAL (Q9967) As Ordered ONE
--- NOTE | 2018-12-25 11:19 | REP ---
CT HEAD WITHOUT CONTRAST: INDICATION: Chronic migraine without aura. COMPARISON: CT head without contrast of 12/28/2013. TECHNIQUE: Axial CT of the head was performed without contrast. FINDINGS: There is a 10 mm nodule within the left suboccipital scalp, not significantly changed. There is no visible soft tissue swelling or calvarial fracture. There is no acute intracranial hemorrhage, midline shift or mass effect. Leroy-white matter differentiation is maintained. The basal cisterns are patent. The ventricles and sulci are symmetric. There is no extra-axial fluid collection. Note is made of intracranial vascular calcifications. The orbital contents are intact. There is partially imaged mucosal thickening within the right maxillary sinus. The remaining visualized paranasal sinuses and mastoid air cells are clear. IMPRESSION: 1. No acute intracranial abnormality. 2. Intracranial vascular calcification. Electronically Signed by Kurtis Saavedra MD 12/25/2018 07:07 P
--- NOTE | 2018-12-25 11:56 | REP ---
CTA OF THE NECK WITH CONTRAST INDICATION: Chronic migraine without aura. COMPARISON: None TECHNIQUE: Axial CT of the neck was performed following the uneventful intravenous administration of 100 mL Isovue 370. Note that CTA of the head was performed at the same time. Axial, sagittal and coronal reformats were provided as well as MIP images and volume rendering of the neck vessels. FINDINGS: A partially imaged left-sided anterior chest wall dual-lead catheter is present, its tip terminates in the superior vena cava. There is a three-vessel aortic arch anatomy. The aortic arch and great vessels are patent. The right vertebral artery is dominant. The right vertebral artery is patent. The left vertebral artery ostium is patent. The proximal portion of the left vertebral artery is partially obscured secondary to venous contrast bolus. The distal portion of the distal portion of the left vertebral artery is patent. The right common carotid artery is patent. There is focal calcified plaque at the bifurcation and proximal portion of the right ICA without significant narrowing. The cervical right ICA is patent. The right ECA is patent. The proximal left common carotid artery is partially obscured proximally secondary to contrast bolus. The remainder of the artery is normal in caliber and patent. The left common bifurcation is unremarkable. The left ICA and left ECA are patent. According to NASCET criteria, there is 0% stenosis of the common carotid arteries at the bifurcations bilaterally. The imaged portion of the brain and soft tissues of the neck are within normal limits. There is no apical pneumothorax. There are multilevel degenerative changes within the cervical spine, most notably at C6-C7. IMPRESSION: 1. No significant stenosis of the cervical arteries. 2. Cervical spondylosis. Electronically Signed by Kurtis Saavedra MD 12/26/2018 08:20 A
--- NOTE | 2018-12-25 12:19 | REP ---
CTA OF THE HEAD WITH CONTRAST: CLINICAL INDICATION: Chronic migraine without aura. COMPARISON: None TECHNIQUE: CTA of the head was performed concurrent with CTA of the neck following the uneventful intravenous administration of 100 mL Isovue 370. Coronal sagittal reformatted images, MIP images and volume rendering images of the vessels were performed. FINDINGS: The right vertebral artery is dominant. The distal vertebral arteries, basilar arteries, and proximal hog cutter are patent. The distal right and left ICAs are patent. There are calcification of the cavernous carotid arteries with mild narrowing bilaterally. The proximal ACAs, MCAs, are patent. Note is made of midline artifact on MIP images, likely related to choroid or venous anomaly. There is a mucous retention cyst or polyp within the right maxillary sinus. There is mild mucosal thickening both maxillary sinuses. IMPRESSION: 1. Mild calcified plaque of the cavernous carotid arteries with mild narrowing. No evidence of aneurysmal formation within the cerebrovasculature. 2. Midline artifact on MIP imaging thought to represent choroid or venous anomaly. Electronically Signed by Kurtis Saavedra MD 12/26/2018 08:28 A
== END ==
LOC: M RAD 09:00
PROVIDERS: ATTEND Psychiatry & Neurology Neurology
DX: G43.719 Chronic migraine without aura, intractable, without status migrainosus (principal); G45.9 Transient cerebral ischemic attack, unspecified; M47.812 Spondylosis without myelopathy or radiculopathy, cervical region; J34.1 Cyst and mucocele of nose and nasal sinus
CPT/HCPCS: 70450; 70496; 70498; Q9967

== ENCOUNTER → 2019-02-27 | Outpatient (CLI) | payer BC, OTHER, MEDICARE ==
[~2019-02-27] MED LIST changes: -ISOVUE-370 76% 100ML VIAL (Q9967) As Ordered ONE
[2019-02-27 09:32] LABS: BASO # 0.1 10^3/uL (0.0-0.2); BASO % 0.8 % (0.0-1.0); EOS # 0.4 10^3/uL (0.0-0.5); EOS % 5.7 % (0.0-3.0); HEMATOCRIT 43.9 % (42.0-52.0); HEMOGLOBIN 14.1 g/dl (13.5-17.5); LYMPH # 1.5 10^3/uL (1.5-5.0); LYMPH % 23.3 % (24.0-44.0); MEAN CORPUSCULAR HEMOGLOBIN 30.3 pg (27.0-33.0); MEAN CORPUSCULAR HGB CONC 32.1 g/dl (32.0-36.5); MEAN CORPUSCULAR VOLUME 94.4 fl (80.0-96.0); MONO % 15.6 % (0.0-5.0); NEUTROPHILS # 3.5 10^3/uL (1.5-8.5); NEUTROPHILS % 54.1 % (36.0-66.0); PLATELET COUNT, AUTOMATED 148 10^3/uL (150-450); RED BLOOD COUNT 4.65 10^6/uL (4.30-6.10); WHITE BLOOD COUNT 6.5 10^3/uL (4.0-10.0)
[2019-02-27 10:02] LABS: ALBUMIN 3.5 GM/DL (3.2-5.2); ALT/SGPT 31 U/L (12-78); BILIRUBIN,TOTAL 0.4 MG/DL (0.2-1.0); BLOOD UREA NITROGEN 23 MG/DL (7-18); CALCIUM LEVEL 8.9 MG/DL (8.8-10.2); CARBON DIOXIDE LEVEL 33 MEQ/L (21-32); CHLORIDE LEVEL 107 MEQ/L (98-107); CREATININE FOR GFR 0.84 MG/DL (0.70-1.30); GLOMERULAR FILTRATION RATE > 60.0 (>42); GLUCOSE, FASTING 87 MG/DL (70-100); POTASSIUM SERUM 4.9 MEQ/L (3.5-5.1); SODIUM LEVEL 141 MEQ/L (136-145); TOTAL PROTEIN 6.5 GM/DL (6.4-8.2); VALPROIC ACID (DEPAKOTE) 58.3 UG/ML (50.0-100.0)
== END ==
LOC: M LAB 08:50
PROVIDERS: ATTEND Psychiatry & Neurology Neurology
DX: G43.909 Migraine, unspecified, not intractable, without status migrainosus (principal)

== ENCOUNTER → 2019-03-23 | Outpatient (CLI) | payer BC, OTHER, MEDICARE | LOC: M LAB 11:53 | PROVIDERS: ATTEND Nurse Practitioner Women's Health | DX: R97.20 Elevated prostate specific antigen [PSA] (principal) ==

== ENCOUNTER → 2019-04-20 | Outpatient (CLI) | payer BC, OTHER, MEDICARE ==
[~2019-04-20] MED LIST changes: -DIGO0.25 PO; +DIGO0.253 PO; -SIMV40TA2 PO; +SIMV40TA20 PO
[2019-04-20 13:46] LABS: HEMATOCRIT 42.3 % (42.0-52.0); HEMOGLOBIN 13.5 g/dl (13.5-17.5); MEAN CORPUSCULAR HEMOGLOBIN 30.4 pg (27.0-33.0); MEAN CORPUSCULAR HGB CONC 31.9 g/dl (32.0-36.5); MEAN CORPUSCULAR VOLUME 95.3 fl (80.0-96.0); PLATELET COUNT, AUTOMATED 157 10^3/uL (150-450); RED BLOOD COUNT 4.44 10^6/uL (4.30-6.10); WHITE BLOOD COUNT 6.8 10^3/uL (4.0-10.0)
[2019-04-20 14:12] LABS: ALBUMIN 3.5 GM/DL (3.2-5.2); ALT/SGPT 28 U/L (12-78); BILIRUBIN,TOTAL 0.7 MG/DL (0.2-1.0); BLOOD UREA NITROGEN 25 MG/DL (7-18); CALCIUM LEVEL 8.9 MG/DL (8.8-10.2); CARBON DIOXIDE LEVEL 30 MEQ/L (21-32); CHLORIDE LEVEL 107 MEQ/L (98-107); CREATININE FOR GFR 1.01 MG/DL (0.70-1.30); GLOMERULAR FILTRATION RATE > 60.0 (>42); GLUCOSE, FASTING 85 MG/DL (70-100); POTASSIUM SERUM 5.5 MEQ/L (3.5-5.1); SODIUM LEVEL 142 MEQ/L (136-145); TOTAL PROTEIN 6.5 GM/DL (6.4-8.2)
== END ==
LOC: M LAB 12:45
PROVIDERS: ATTEND Physician Assistant
DX: E78.2 Mixed hyperlipidemia (principal); I25.10 Atherosclerotic heart disease of native coronary artery without angina pectoris; K21.9 Gastro-esophageal reflux disease without esophagitis

== ENCOUNTER → 2019-04-21 | Outpatient (CLI) | payer BC, OTHER, MEDICARE | LOC: M LAB 06:23 | PROVIDERS: ATTEND Internal Medicine Cardiovascular Disease | DX: I48.0 Paroxysmal atrial fibrillation (principal) ==

== ENCOUNTER → 2019-05-01 | Outpatient (CLI) | payer BC, OTHER, MEDICARE ==
--- NOTE | 2019-05-01 17:03 | REP ---
HISTORY: Pain and swelling. TECHNIQUE: Multiple ultrasonographic images of the deep venous structures of the right thigh were obtained from the common femoral vein to the popliteal vein along with Doppler interrogation and color flow Doppler images. FINDINGS: There is no abnormal echogenic material seen within any of the visualized deep venous structures that would suggest acute thrombosis. Coaptation is unremarkable throughout. Doppler interrogation shows an expected response to respiratory variability and augmentation. The color flow images show what appears to be a normal vascular pattern throughout. IMPRESSION: There is no ultrasonographic evidence of deep venous thrombosis involving any of the visualized deep venous structures of the right thigh, as described above. Electronically Signed by Shaun Jenkins DO 05/01/2019 06:21 P
== END ==
LOC: M RAD 14:52
PROVIDERS: ATTEND Orthopaedic Surgery
DX: M79.661 Pain in right lower leg (principal)

== ENCOUNTER → 2019-06-11 | Outpatient (REF) | payer OTHER, MEDICARE ==
[~2019-06-11] MED LIST changes: +DEPA250T32 PO; +DIGO0.127 PO; +KETO0.3S OU; +OFLO3OPSO OU; +PULM90IN INH; +TAMS1CAP17 PO; +TYLE650T38 PO; +VENTAER INH; +XARE20TA PO
[2019-06-11 18:25] LABS: APPEARANCE, URINE CLEAR (CLEAR); BACTERIA, URINE AUTO NEGATIVE (NEGATIVE); BILIRUBIN, URINE AUTO NEGATIVE (NEGATIVE); BLOOD, URINE BLOOD NEGATIVE (NEGATIVE); COLOR, URINE YELLOW (YELLOW); GLUCOSE, URINE (UA) AUTO NEGATIVE (NEGATIVE); KETONE, URINE AUTO NEGATIVE (NEGATIVE); LEUKOCYTE ESTERASE, URINE AUTO NEGATIVE (NEGATIVE); NITRITE, URINE AUTO NEGATIVE (NEGATIVE); PROTEIN, URINE AUTO NEGATIVE (NEGATIVE); RBC, URINE AUTO 0 /HPF (0-3); SPECIFIC GRAVITY URINE AUTO 1.013 (1.002-1.035); SQUAMOUS EPITHELIAL CELL UR AU 0 /HPF (0-6); UROBILINOGEN, URINE AUTO 0.2 mg/dL (0.0-2.0); WBC, URINE AUTO 2 /HPF (0-3)
== END ==
LOC: M SMT 16:55
PROVIDERS: ATTEND Nurse Practitioner Women's Health
DX: R30.0 Dysuria (principal)

== ENCOUNTER 2019-06-12 03:05 | Emergency (ER) | payer BC, OTHER, MEDICARE ==
[~2019-06-12] VITALS: Ht 180.3 cm; Wt 93.9 kg
[~2019-06-12 03:05] MED LIST changes: -DEPA250T32 PO; -DIGO0.127 PO; -KETO0.3S OU; -OFLO3OPSO OU; -PULM90IN INH; -TAMS1CAP17 PO; -TYLE650T38 PO; -VENTAER INH; -XARE20TA PO
[2019-06-12] MEDS ORDERED: PULM90IN INH (03:23)
[2019-06-12] MEDS ORDERED: DEPA250T32 PO (03:23)
[2019-06-12] MEDS ORDERED: AVOD0.5C PO (03:23)
[2019-06-12] MEDS ORDERED: XARE20TA PO (03:23)
[2019-06-12] MEDS ORDERED: LIDOCAINE 2% 5ML JELLY UROJET TOP ONE (04:00)
[2019-06-12 04:11] LABS: APPEARANCE, URINE CLEAR (CLEAR); BACTERIA, URINE AUTO NEGATIVE (NEGATIVE); BILIRUBIN, URINE AUTO NEGATIVE (NEGATIVE); BLOOD, URINE BLOOD 1+ (NEGATIVE); COLOR, URINE YELLOW (YELLOW); GLUCOSE, URINE (UA) AUTO NEGATIVE (NEGATIVE); KETONE, URINE AUTO NEGATIVE (NEGATIVE); LEUKOCYTE ESTERASE, URINE AUTO NEGATIVE (NEGATIVE); MUCUS, URINE SMALL (NEGATIVE); NITRITE, URINE AUTO NEGATIVE (NEGATIVE); PROTEIN, URINE AUTO NEGATIVE (NEGATIVE); RBC, URINE AUTO 11 /HPF (0-3); SPECIFIC GRAVITY URINE AUTO 1.012 (1.002-1.035); SQUAMOUS EPITHELIAL CELL UR AU 0 /HPF (0-6); UROBILINOGEN, URINE AUTO 0.2 mg/dL (0.0-2.0); WBC, URINE AUTO 1 /HPF (0-3)
[2019-06-12 05:00] VITALS: BP 121/62
== END 2019-06-12 05:23 | disposition home or self-care (01) ==
LOC: M ED 03:05
DX: N40.1 Benign prostatic hyperplasia with lower urinary tract symptoms (principal); R33.9 Retention of urine, unspecified; I10 Essential (primary) hypertension; E78.5 Hyperlipidemia, unspecified; Z79.899 Other long term (current) drug therapy; Z79.82 Long term (current) use of aspirin; Z79.01 Long term (current) use of anticoagulants; Z88.0 Allergy status to penicillin

== ENCOUNTER 2019-06-16 13:08 | Inpatient (IN) | payer BC, OTHER, MEDICARE ==
[~2019-06-16] VITALS: Ht 180.3 cm; Wt 71.8 kg
[~2019-06-16 13:08] MED LIST changes: +DEPA250T32 PO; +PULM90IN INH; +XARE20TA PO
[2019-06-16] MEDS ORDERED: TAMS1CAP17 PO (13:36)
[2019-06-16] MEDS ORDERED: DIGO0.127 PO (13:36)
[2019-06-16] MEDS ORDERED: LIDOCAINE 1% MDV 20ML VIAL As Ordered ONE (13:50)
[2019-06-16] MEDS ORDERED: MORPHINE 4 MG/ML 1ML VIAL/SYRINGE (J2270) IV ONE (14:00)
[2019-06-16] MEDS ORDERED: NS 500 ML IV ONE (14:00)
[2019-06-16] MEDS ORDERED: LIDOCAINE 2% 5ML JELLY UROJET TOP ONE (14:15)
[2019-06-16 14:26] LABS: BASO % 0.3 % (0.0-1.0); EOS # 0.1 10^3/uL (0.0-0.5); EOS % 1.7 % (0.0-3.0); HEMATOCRIT 41.7 % (42.0-52.0); HEMOGLOBIN 12.9 g/dl (13.5-17.5); LYMPH # 1.1 10^3/uL (1.5-5.0); LYMPH % 14.2 % (24.0-44.0); MEAN CORPUSCULAR HEMOGLOBIN 29.6 pg (27.0-33.0); MEAN CORPUSCULAR HGB CONC 30.9 g/dl (32.0-36.5); MEAN CORPUSCULAR VOLUME 95.6 fl (80.0-96.0); MONO # 1.1 10^3/uL (0.0-0.8); MONO % 14.2 % (0.0-5.0); NEUTROPHILS # 5.4 10^3/uL (1.5-8.5); NEUTROPHILS % 69.2 % (36.0-66.0); PLATELET COUNT, AUTOMATED 163 10^3/uL (150-450); RED BLOOD COUNT 4.36 10^6/uL (4.30-6.10); WHITE BLOOD COUNT 7.8 10^3/uL (4.0-10.0)
[2019-06-16 14:48] LABS: INR 2.22; PROTHROMBIN TIME 24.4 SECONDS (11.8-14.0)
[2019-06-16 14:49] LABS: PARTIAL THROMBOPLASTIN TIME 43.3 SECONDS (25.0-38.4)
[2019-06-16 14:55] LABS: BLOOD UREA NITROGEN 23 MG/DL (7-18); CALCIUM LEVEL 8.6 MG/DL (8.8-10.2); CARBON DIOXIDE LEVEL 25 MEQ/L (21-32); CHLORIDE LEVEL 105 MEQ/L (98-107); CREATININE FOR GFR 1.15 MG/DL (0.70-1.30); GLOMERULAR FILTRATION RATE > 60.0 (>42); GLUCOSE, FASTING 134 MG/DL (70-100); POTASSIUM SERUM 4.6 MEQ/L (3.5-5.1); SODIUM LEVEL 139 MEQ/L (136-145)
[2019-06-16] MEDS ORDERED: HYDROMORPHONE HCL 0.5 MG/ 0.5 ML SYRINGE (J1170 PER 1) IV PRN (15:15)
[2019-06-16] MEDS ORDERED: DIGO0.253 PO (15:18)
[2019-06-16] MEDS ORDERED: TYLE650T38 PO (15:18)
[2019-06-16] MEDS ORDERED: OFLO3OPSO OU (15:18)
[2019-06-16] MEDS ORDERED: KETO0.3S OU (15:18)
[2019-06-16] MEDS ORDERED: ATEN50TA2 PO (15:18)
[2019-06-16] MEDS ORDERED: VENTAER INH (15:18)
--- NOTE | 2019-06-16 15:26 | SMCUROLCON ---
Urology Consultation General Date of Consultation 06/16/19 Reason For Consultation This patient is seen for Urinary Retention, Blood In Urine. History of Present Illness The patient is a 78year-old white male with a past medical history for anticoagulation and urinary retention with gross hematuria. Pt went in retention 5 days ago. Tripped over cee today. Now with gross hematuria. Past Medical History Medical History as above Surgical Hstory reviewed Family History Significant Family History: No pertinent family hx Social History * Smoker: non-smoker Alcohol: Denies Drugs: denies Medications Current Medications Current Medications Medications (Trade) Dose Ordered Sig/Vinay Route PRN Reason Start Time Stop Time Status Last Admin Dose Admin Hydromorphone HCl (Dilaudid) 0.5 mg Q30M PRN IV MODERATE PAIN (PS 5-7) 06/16/19 15:15 06/16/19 15:08 Allergies Allergies: Coded Allergies: Penicillins (Verified Allergy, Intermediate, DIZZINESS, SWELLING, 11/25/18) Review of Systems General: Denies: Chills, Fatigue Genitourinary: Reports: Hematuria, Retention Hematologic: Denies: Bruising, Bleeding Excessively Endocrine: Denies: Polyuria Physical Examination General Exam: Cooperative Male Exam: Normal Genital Exam; No: Edema, Erythema (urine dark red, no clots) Extremity Exam: No: Clubbing Vital Signs/I&O Vital Signs Date Time Temp Pulse Resp B/P (MAP) Pulse Ox O2 Delivery O2 Flow Rate FiO2 06/16/19 15:08 18 06/16/19 14:52 06/16/19 13:08 97.0 76 99 Room Air Laboratory Data 24H Labs Laboratory Tests 2 06/16/19 13:57: Immature Granulocyte % (Auto) 0.4, Neutrophils (%) (Auto) 69.2H, Lymphocytes (%) (Auto) 14.2L, Monocytes (%) (Auto) 14.2H, Eosinophils (%) (Auto) 1.7, Basophils (%) (Auto) 0.3, Neutrophils # (Auto) 5.4, Lymphocytes # (Auto) 1.1L, Monocytes # (Auto) 1.1H, Eosinophils # (Auto) 0.1, Basophils # (Auto) 0.0, Nucleated Red Blood Cells % (auto) 0.0, Prothrombin Time 24.4H, Prothromb Time International Ratio 2.22, Activated Partial Thromboplast Time 43.3H, Anion Gap 9, Glomerular Filtration Rate > 60.0, Calcium Level 8.6L CBC/BMP Laboratory Tests 06/16/19 13:57 Assessment Clot hematuria Plan I irrgated out. Got clear initially but clotted off immediately. May need to go to the OR. Will try again and go from there JENISE NAVARRETE MD Jun 16, 2019 15:26
[2019-06-16] MEDS ORDERED: ACETAMINOPHEN TAB 650MG DOSE (2X325MG) PO PRN (16:30)
[2019-06-16] MEDS ORDERED: CIPROFLOXACIN/D5W 400 MG/200 ML BAG (J0744) As Ordered ONE (16:51)
[2019-06-16] MEDS ORDERED: ePHEDrine SULFATE 25 MG/5 ML(5MG/ML) SYRINGE As Ordered ONE ×2 (16:54→17:28)
[2019-06-16] MEDS ORDERED: LIDOCAINE 2% INJ 100 MG/5 ML SDV (FOR ANES.) As Ordered ONE (16:54)
[2019-06-16] MEDS ORDERED: propofoL 200 MG/20 ML VIAL As Ordered ONE (16:54)
[2019-06-16] MEDS ORDERED: MIDAZOLAM INJ 2 MG/2 ML VIAL (J2250) As Ordered ONE (16:54)
[2019-06-16] MEDS ORDERED: fentaNYL 100 MCG/2 ML INJECTION (J3010) As Ordered ONE (16:54)
[2019-06-16] MEDS ORDERED: ONDANSETRON 4MG/2ML VIAL (J2405) As Ordered ONE (16:54)
[2019-06-16] MEDS ORDERED: PHENYLephrine HCL 500 MCG/5 ML (100MCG/ML) SYRINGE (J2370) As Ordered ONE (16:54)
[2019-06-16] MEDS ORDERED: dexameTHASONE 4 MG/ML 1ML VIAL (J1100) As Ordered ONE (16:54)
[2019-06-16] MEDS ORDERED: FEXOFENADINE 60 MG TAB PO PRN (17:00)
[2019-06-16] MEDS ORDERED: NITROGLYCERIN 0.4 MG SUBL TABLET SL PRN (17:00)
[2019-06-16] MEDS ORDERED: ALBUTEROL 90 MCG/ACT 8GM HFA INHALER INH PRN (17:00)
--- NOTE | 2019-06-16 17:09 | HPEPDOC ---
General Date of Admission 06/16/2019 Date of Service: Jun 16, 2019 Primary Care Physician: Jonathan Steinberg MD Attending Physician: Jonathan Steinberg MD Chief Complaint The patient is a 78-year-old male who presented to the emergency room with complaints of abdominal pain and blood around his Alvarez. History of Present Illness Patient is 78-year-old male with past medical history of atrial fibrillation on Xarelto, Sick sinus s/p Pacemaker (11/2018), HTN, coronary artery disease s/p stent, dyslipidemia, COPD, migraine headaches, BPH (with Alvarez catheter placed on Saturday06/12/2019) and GERD who presented to the emergency room with complaints of suprapubic abdominal discomfort associated with bloody discharge around Alvarez. Patient reported that earlier this morning he was pulling down his pull-ups and noted his Alvarez catheter got slightly dislodged. Initially, patient reported no pain, however, he noted that he was unable to see any urine pass with through the Alvarez later he did note abdominal pain occurring at the lower portion of his abdomen and blood around the head of his penis. Patient denies chest pain, shortness of breath, lightheadedness or dizziness. He has not expense any nausea, vomiting, any diarrhea. He does report constipation but did report having a bowel movement yesterday evening. Denies any fevers or chills over the last 2 weeks. Patient has not experienced any changes in his weight or appetite. Home Medications Scheduled Aspirin (Aspirin EC) 81 Mg Tab, 81 MG PO DAILY, (Reported) Atenolol (Atenolol) 50 Mg Tablet, 50 MG PO BID, (Reported) Budesonide (Pulmicort Flexhaler) 90 Mcg Aer.pow.ba, 1 PUFF INH BID, (Reported) Digoxin (Digoxin) 250 Mcg Tablet, 125 MCG PO DAILY, (Reported) Dutasteride (Avodart) 0.5 Mg Capsule, 0.5 MG PO QHS, (Reported) Ketorolac Tromethamine (Ketorolac Tromethamine) 0.4% Drops, 1 DROP OU QID, (Reported) FINISH RIGHT EYE 06/16/19, CONTINUE IN LEFT EYE FOR ONE WEEK Multivitamin (Multivitamins) 1 Cap Cap, 1 CAP PO DAILY, (Reported) Ofloxacin (Ofloxacin) 0.3% 5ML Drops, 1 DROP OU BID, (Reported) FINISH RIGHT EYE 06/16/19, THEN CONTINUE IN LEFT EYE FOR ONE WEEK Omeprazole (Omeprazole) 20 Mg Capsule.dr, 20 MG PO DAILY, (Reported) Rivaroxaban (Xarelto) 20 Mg Tablet, 20 MG PO DAILY, (Reported) Simvastatin (Simvastatin) 40 Mg Tab, 40 MG PO QHS, (Reported) Tamsulosin Hcl (Tamsulosin HCl) 0.4 Mg Capsule, 0.4 MG PO QHS, (Reported) Scheduled PRN Acetaminophen (Tylenol 8 Hour) 650 Mg Tablet.er, 650 MG PO TID PRN for PAIN, (Reported) Albuterol Sulfate (Ventolin Hfa) 18 Gm Hfa.aer.ad, 2 PUFF INH Q6H PRN for SHORTNESS OF BREATH, (Reported) Fexofenadine HCl (Carina Allergy) 180 Mg Tab, 180 MG PO DAILY PRN for ALLERGIES, (Reported) Nitroglycerin (Nitroglycerin) 0.4 Mg Sub, 0.4 MG SL NITRO PRN for CHEST PAIN , (Reported) Allergies Coded Allergies: Penicillins (Verified Allergy, Intermediate, DIZZINESS, SWELLING, 11/25/18) Past Medical History Medical History Atrial fibrillation on Xarelto, Sick sinus s/p Pacemaker (11/2018), HTN, coronary artery disease s/p stent, dyslipidemia, COPD, migraine headaches, BPH (with Alvarez catheter placed on Saturday06/12/2019) and GERD Surgical History TURP 09/2006 Appendectomy Tonsillectomy and adenoidectomy Bilateral rotary cuff repair Left lower ear skin cancer removal Varicose veins bilateral repair Pacemaker placement Family History - Family history reviewed and is currently noncontributory to current hospitalization Social History - Denies the use of alcohol, tobacco or illicit drugs - Denies recent travel or sick contacts - Lives with Review of Systems Other systems 10 point review of systems complete, all negative otherwise stated in HPI Vital Signs - Vitals: BP 119/63, HR 76, RR 18, Sat 99%RA, Temp 97.0 - General: Lying in bed, No acute distress, Speaking in full sentences, AAOx3 - HEENT: NC, AT, PERRLA, EOMI - CVS: RRR, +S1S2 - Lungs: Fair air entry bilaterally, No appreciable wheezing / rales / rhonchi - Abdomen: Soft, Non-distended, + suprapubic tenderness - : Alvarez catheter in place; training serosangious / blood output, old blood noted around ureteral meatus - Extremities: No lower extremity edema, No calf tenderness - Neuro: No focal motor or sensory deficit - Skin: No visible rashes Laboratory Data Labs 24H Laboratory Tests 2 06/16/19 13:57: Immature Granulocyte % (Auto) 0.4, Neutrophils (%) (Auto) 69.2H, Lymphocytes (%) (Auto) 14.2L, Monocytes (%) (Auto) 14.2H, Eosinophils (%) (Auto) 1.7, Basophils (%) (Auto) 0.3, Neutrophils # (Auto) 5.4, Lymphocytes # (Auto) 1.1L, Monocytes # (Auto) 1.1H, Eosinophils # (Auto) 0.1, Basophils # (Auto) 0.0, Nucleated Red Blood Cells % (auto) 0.0, Prothrombin Time 24.4H, Prothromb Time International Ratio 2.22, Activated Partial Thromboplast Time 43.3H, Anion Gap 9, Glomerular Filtration Rate > 60.0, Calcium Level 8.6L CBC/BMP Laboratory Tests 06/16/19 13:57 Plan / VTE VTE Prophylaxis Ordered?: Yes Plan Plan Hematuria - likely 2/2 traumatic urinary catheter manipulation - Patient has presented to the emergency room with complaints of suprapubic discomfort and blood around the Alvarez catheter - Suprapubic tenderness appreciated - No leukocytosis; hemoglobin is currently at 12.9; hemoglobin baseline runs at approximately 13-14 - Patient has been seen and evaluated by urology in the ER; plans for or intervention tonight - Patient has a triple-lumen catheter placed for continuous bladder irrigation - Patient will be kept nothing by mouth - Will continue to follow H&H every 6 hours; will transfuse as needed - Discussed anti-coagulation with urology at this point, well hold off until Hematuria resolves - Urology on consultation case has been discussed Atrial fibrillation - Patient denies any chest pain, shortness of breath or palpitations - Patients EKG was compared to prior. Does not reveal any significant change - Well continue with telemetry monitoring overnight - c/w Atenolol and Digoxin for rate control - s/p PM - Will hold anticoagulation with Eliquis Sick sinus - s/p Pacemaker (11/2018) HTN - BP remains well-controlled - c/w Atenolol with holding parameters CAD s/p stent - c/w ASA DLP - c/w Simvastatin COPD - No evidence of exacerbation - c/w inhaled therapy as ordered Migraine headaches - Currently not on any medications BPH - With Alvarez catheter placed on Saturday06/12/2019) for urinary retention - Had outpatient follow up with Urology GERD - c/w Omeprazole DVT prophylaxis - Will start TEDs/Sequentials CHRIS LOPEZ MD Jun 16, 2019 17:09
--- NOTE | 2019-06-16 17:34 | ROPEDSPDOC ---
NICU Report Of Operation Report of Operation DATE OF PROCEDURE: 06/16/19 PREPROCEDURE DIAGNOSIS: Clot Hematuria. POSTPROCEDURE DIAGNOSIS: Same. PROCEDURE PROPOSED: Cystoscopy, evacuation of clot, possible fulguration of bleeders. PROCEDURE: Same SURGEON: Karma CORK COMPOUNDER: None ANESTHESIA: Gen. ESTIMATED BLOOD LOSS: 500 mL DESCRIPTION OF PROCEDURE: Patient was taken to the operative room after obtaining appropriate consent. He was placed in the operative table supine position. He was he was sedated and had a LMA placed. I then placed him in lithotomy and remove the Alvarez catheter tubing was thick dark blood. I then placed 8 obtuse Cypriot scope into his bladder. His urethra is normal. His prostate was very friable and actively bleeding vessels. The visibility was quite bad. Bladder large clot in it. I could not see anything else. I placed the Ellik evacuator and evacuated approximately 500 mL of clot. I then looked back into the bladder. He had very friable bladder mucosa. He had visible bleeding vessels from his prostatic urethra. He had bilobar BPH. His prostate had lots of visible blood vessels, which were actively bleeding. I decided to place the bipolar resectoscope with the button on cautery to prostate. I withdrew the cystoscope and placed the resectoscope and with the button on cautery I fulgurated the actively bleeding vessels and the vessels that looked to be about to bleed in the prostate. I did not do complete TURP. I just did fulguration. At this point, the irrigant fluid was light pink. I decided to place the 24 Cypriot 3-way catheter. This I did and secured it on traction with 60 mL in the balloon. I then used a Ash syringe to irrigate and the irrigation stayed light pink. There were no clots. I decided to secure the catheter on traction while the patient was asleep. We took his legs out of lithotomy while he was asleep and I secured the catheter on traction. I then attached the CBI and the fluid returned remained light pink and ultimately became clear. The site and the case here and the patient was awakened and returned to recovery in stable fashion. This is Dr. Navarrete dictating. JENISE NAVARRETE MD Jun 16, 2019 17:34
[2019-06-16 18:30] VITALS: BP 126/69
--- NOTE | 2019-06-16 18:39 | IPNPDOC ---
Subjective Review oF Systems Chief Complaint The patient is a 78-year-old male admitted with a reason for visit of Clot Hematuria. Events since Last Encounter Urine is light pink on CBI. Pt feels well. General: Denies: Chills Genitourinary: Reports: Other Symptoms (Denies bladder pain) Objective Physical Examination General Exam: Cooperative ABDOMEN EXAM: Soft Male Exam: No: Tenderness (bladder not distended. Urine clear to very light pink) Skin Exam: Nl turgor and temperature Vital Signs/I&O Vital Signs Date Time Temp Pulse Resp B/P (MAP) Pulse Ox O2 Delivery O2 Flow Rate FiO2 06/16/19 18:03 97.5 69 16 115/62 (79) 98 Nasal Cannula 2 Laboratory Data Labs 24H Laboratory Tests 2 06/16/19 13:57: Immature Granulocyte % (Auto) 0.4, Neutrophils (%) (Auto) 69.2H, Lymphocytes (%) (Auto) 14.2L, Monocytes (%) (Auto) 14.2H, Eosinophils (%) (Auto) 1.7, Basophils (%) (Auto) 0.3, Neutrophils # (Auto) 5.4, Lymphocytes # (Auto) 1.1L, Monocytes # (Auto) 1.1H, Eosinophils # (Auto) 0.1, Basophils # (Auto) 0.0, Nucleated Red Blood Cells % (auto) 0.0, Prothrombin Time 24.4H, Prothromb Time International Ratio 2.22, Activated Partial Thromboplast Time 43.3H, Anion Gap 9, Glomerular Filtration Rate > 60.0, Calcium Level 8.6L CBC/BMP Laboratory Tests 06/16/19 13:57 Assessment/Plan Date Seen The patient was seen on 06/16/19. Problems (1) Gross hematuria Status: Acute Urology Problem Text: Urine clear sp clot evac and fulguration Plan/VTE VTE Prophylaxis Ordered?: Yes Plan Continue CBI titrate to urine clear to light pink. IVF: Continue Diet: Advance JENISE NAVARRETE MD Jun 16, 2019 18:39
[2019-06-16 19:00] VITALS: BP 132/74
[2019-06-16] MEDS ORDERED: LR 1,000 ML IV SCH (19:00)
[2019-06-16] MEDS ORDERED: fentaNYL 100 MCG/2 ML INJECTION (J3010) IV PRN (19:00)
[2019-06-16] MEDS ORDERED: ONDANSETRON 4MG/2ML VIAL (J2405) IV PRN (19:00)
[2019-06-16 20:00] VITALS: BP 137/73
[2019-06-16 20:21] LABS: HEMATOCRIT 35.6 % (42.0-52.0)
[2019-06-16] MEDS ORDERED: BUDESONIDE 0.5 MG/2 ML INHALATION SUSPENSION INH SCH (21:00)
[2019-06-16] MEDS: SIMVASTATIN 40 MG TAB PO SCH (22:08)
[2019-06-16] MEDS: atenoloL 50 MG TAB PO SCH (22:08)
[2019-06-16] MEDS: DUTASTERIDE 0.5 MG CAP (AVODART) PO SCH (22:09)
[2019-06-16] MEDS: TAMSULOSIN 0.4 MG CAP PO SCH (22:09)
[2019-06-16] MEDS: OFLOXACIN 0.3 % (OCUFLOX) OPTH SOL 5ML OU SCH ×2 (22:09→22:12)
[2019-06-16 23:59] VITALS: BP 135/68
[2019-06-17 01:50] LABS: HEMOGLOBIN 10.3 g/dl (13.5-17.5)
[2019-06-17 04:00] VITALS: BP 122/67
[2019-06-17 05:56] LABS: HEMATOCRIT 32.6 % (42.0-52.0); HEMOGLOBIN 10.2 g/dl (13.5-17.5); LYMPH # 0.8 10^3/uL (1.5-5.0); LYMPH % 9.2 % (24.0-44.0); MEAN CORPUSCULAR HEMOGLOBIN 29.8 pg (27.0-33.0); MEAN CORPUSCULAR HGB CONC 31.3 g/dl (32.0-36.5); MEAN CORPUSCULAR VOLUME 95.3 fl (80.0-96.0); MONO # 0.5 10^3/uL (0.0-0.8); MONO % 6.3 % (0.0-5.0); PLATELET COUNT, AUTOMATED 125 10^3/uL (150-450); RED BLOOD COUNT 3.42 10^6/uL (4.30-6.10); WHITE BLOOD COUNT 8.3 10^3/uL (4.0-10.0)
[2019-06-17 06:25] LABS: BLOOD UREA NITROGEN 16 MG/DL (7-18); CALCIUM LEVEL 7.7 MG/DL (8.8-10.2); CARBON DIOXIDE LEVEL 25 MEQ/L (21-32); CHLORIDE LEVEL 108 MEQ/L (98-107); CREATININE FOR GFR 0.71 MG/DL (0.70-1.30); GLOMERULAR FILTRATION RATE > 60.0 (>42); GLUCOSE, FASTING 117 MG/DL (70-100); MAGNESIUM LEVEL 1.8 MG/DL (1.8-2.4); POTASSIUM SERUM 4.5 MEQ/L (3.5-5.1); SODIUM LEVEL 139 MEQ/L (136-145)
[2019-06-17 08:00] VITALS: BP 105/61
[2019-06-17] MEDS: BUDESONIDE 180MCG INHALER (PULMICORT FLEXHALER) INH SCH ×2 (08:00→20:33)
[2019-06-17] MEDS: OMEPRAZOLE 20 MG CAP PO SCH (08:15)
[2019-06-17] MEDS: ASPIRIN 81 MG ENTERIC TAB PO SCH (08:15)
[2019-06-17] MEDS: MULTIVITAMINS/MINERALS THERAP 1 TAB PO SCH (08:15)
[2019-06-17] MEDS: atenoloL 50 MG TAB PO SCH ×2 (08:16→21:12)
[2019-06-17] MEDS: DIGOXIN 0.25 MG TAB PO SCH (08:16)
[2019-06-17] MEDS: OFLOXACIN 0.3 % (OCUFLOX) OPTH SOL 5ML OU SCH ×2 (08:17→08:21)
[2019-06-17] MEDS ORDERED: OFLOXACIN 0.3 % (OCUFLOX) OPTH SOL 5ML OS SCH (09:00)
[2019-06-17] MEDS ORDERED: KETOROLAC 0.5% OPHTH SOLN OS SCH (09:00)
[2019-06-17] MEDS ORDERED: OPTH OD SCH (09:00)
[2019-06-17] MEDS ORDERED: PREDNISOLONE 1% OD SCH (09:00)
--- NOTE | 2019-06-17 10:31 | IPNPDOC ---
Subjective Date Seen The patient was seen on 06/17/19. Subjective Chief Complaint/HPI urinary retention Events since last encounter Admitted for bladder irrigation due to urinary retention with bleeding. s/p sp clot evac and fulguration. Constitutional: Denies: Chills, Fever, Night Sweats ENT: Denies: Head Aches, Ear Pain, Dysphagia Pulmonary: Denies: Dyspnea, Cough Cardiovascular: Denies: Chest Pain, Palpitations, Orthopnea, Paroxysmal Noc. Dyspnea, Lt Headedness Gastrointestinal: Denies: Nausea, Vomiting, Abdominal Pain, Diarrhea, Constipation Genitourinary: Reports: Hematuria, Retention Objective Physical Examination General Exam: Positive: Alert, No Acute Distress Chest Exam: Positive: Clear to auscultation, Normal air movement Heart Exam: Positive: Rate Normal, Regular Rhythm, Normal S1, Normal S2; Negative: Murmurs, Rubs Telemetry: Positive: No significant arrhythmia Abdomen Exam: Positive: Normal bowel sounds, Soft; Negative: Tenderness, Hepatospenomegaly Male Exam: Positive: Normal Genital Exam (bleeding with gauze around cee insertion) Psych Exam: Positive: Mental status NL, Mood NL, Oriented x 3 Assessment /Plan Assessment Appears comfortable. Urine was red at the time that I saw him, but no more clot. On CBI. -- CDT Problems (1) BPH loc w urin obs/LUTS Status: Acute Problem Specific Plan: Consult Specialist Problem Text: Cee placed 06/12/2019 (2) Gross hematuria Status: Acute Problem Text: most likely secondary to trauma with urinary catheter manipulation - Patient has presented to the emergency room with complaints of suprapubic discomfort and blood around the Cee catheter - Suprapubic tenderness appreciated - No leukocytosis; hemoglobin is stable - Patient has been seen and evaluated by urology: intervention completed with clot evacuation - Patient has a triple-lumen catheter placed for continuous bladder irrigation - Will continue to follow H&H every 6 hours; will transfuse as needed - Discussed anti-coagulation with urology at this point, well hold off until Hematuria resolves - Urology on consultation Urine is clear/pink. Management deferred to urology likely 2/2 trauma (3) CAD (coronary artery disease) Status: Chronic Problem Text: continue with ASA (4) Atrial fibrillation Status: Chronic Problem Text: Pt. denies any chest pain, shortness of breath or palpitations - Patients EKG was compared to prior. Does not reveal any significant change - Well continue with telemetryt - c/w Atenolol and Digoxin for rate control - Will hold anticoagulation with Eliquis rate controlled. (5) HTN (hypertension) Status: Chronic Response to Treatment: Stable Problem Text: Continue with home dose Atenolol (6) GERD (gastroesophageal reflux disease) Status: Chronic Response to Treatment: Stable Problem Text: continue with home PPI (7) COPD (chronic obstructive pulmonary disease) Status: Chronic Response to Treatment: Stable Problem Text: oxygen saturation stable. (8) Hyperlipemia Status: Chronic Problem Text: continue simvastatin (9) Migraine Status: Chronic Response to Treatment: Stable Problem Text: denies YARBROUGH Plan/VTE VTE Prophylaxis Ordered?: Yes Plan IVF: Continue Diet: Advance VS, I&O, 24H, Fishbone Vital Signs/I&O Vital Signs Date Time Temp Pulse Resp B/P (MAP) Pulse Ox O2 Delivery O2 Flow Rate FiO2 06/17/19 08:16 74 06/17/19 08:16 122/67 06/17/19 08:00 2.0 06/17/19 08:00 97.1 19 87 Nasal Cannula I&O- Last 24 Hours up to 6 AM 06/17/19 06:00 Intake Total 1300 ml Output Total 4190 ml Balance -2890 ml Laboratory Data 24H LABS Laboratory Tests 2 06/16/19 13:57: Immature Granulocyte % (Auto) 0.4, Neutrophils (%) (Auto) 69.2H, Lymphocytes (%) (Auto) 14.2L, Monocytes (%) (Auto) 14.2H, Eosinophils (%) (Auto) 1.7, Basophils (%) (Auto) 0.3, Neutrophils # (Auto) 5.4, Lymphocytes # (Auto) 1.1L, Monocytes # (Auto) 1.1H, Eosinophils # (Auto) 0.1, Basophils # (Auto) 0.0, Nucleated Red Blood Cells % (auto) 0.0, Prothrombin Time 24.4H, Prothromb Time International Ratio 2.22, Activated Partial Thromboplast Time 43.3H, Anion Gap 9, Glomerular Filtration Rate > 60.0, Calcium Level 8.6L 06/17/19 05:42: Immature Granulocyte % (Auto) 0.5, Neutrophils (%) (Auto) 84.0H, Lymphocytes (%) (Auto) 9.2L, Monocytes (%) (Auto) 6.3H, Eosinophils (%) (Auto) 0.0, Basophils (%) (Auto) 0.0, Neutrophils # (Auto) 7.0, Lymphocytes # (Auto) 0.8L, Monocytes # (Auto) 0.5, Eosinophils # (Auto) 0.0, Basophils # (Auto) 0.0, Nucleated Red Blood Cells % (auto) 0.0, Anion Gap 6L, Glomerular Filtration Rate > 60.0, Calcium Level 7.7L, Magnesium Level 1.8 CBC/BMP Laboratory Tests 06/16/19 13:57 06/16/19 19:59 06/17/19 01:44 06/17/19 05:42 Jadyn Syed [facility] Jun 17, 2019 10:31 SYEDA SANCHEZ DO Jun 18, 2019 19:02
[2019-06-17] MEDS ORDERED: PREDOPD OS (11:41)
[2019-06-17 12:00] VITALS: BP 117/55
[2019-06-17] MEDS: PREDNISOLONE 1% OS SCH (13:29)
[2019-06-17] MEDS: OPTH OS SCH ×4 (13:29→21:13)
[2019-06-17] MEDS: KETOROLAC 0.4% OS SCH ×3 (13:30→21:13)
[2019-06-17] MEDS: KETOROLAC 0.4% OD SCH ×3 (13:30→21:13)
[2019-06-17] MEDS: OPTH OD SCH ×3 (13:30→21:13)
--- NOTE | 2019-06-17 14:01 | IPNPDOC ---
Subjective Review oF Systems Chief Complaint The patient is a 78-year-old male admitted with a reason for visit of Clot Hematuria. Events since Last Encounter No acute events o/n. Denies pain. Catheter has drained well w/o need for manual irrigation. Objective Physical Examination General Exam: Alert, Cooperative ABDOMEN EXAM: Soft; No: Tenderness Skin Exam: Nl turgor and temperature Neuro Exam: Normal Speech Psych Exam: Mental status NL, Mood NL Other physical findings 3-way catheter in place w/ irrigation wide open and clear outflow draining into the bag Vital Signs/I&O Vital Signs Date Time Temp Pulse Resp B/P (MAP) Pulse Ox O2 Delivery O2 Flow Rate FiO2 06/17/19 12:00 2.0 06/17/19 12:00 97.1 69 19 117/55 (75) 98 Nasal Cannula I&O- Last 24 Hours up to 6 AM 06/17/19 06:00 Intake Total 1300 ml Output Total 4190 ml Balance -2890 ml Laboratory Data Labs 24H Laboratory Tests 2 06/17/19 05:42: Immature Granulocyte % (Auto) 0.5, Neutrophils (%) (Auto) 84.0H, Lymphocytes (%) (Auto) 9.2L, Monocytes (%) (Auto) 6.3H, Eosinophils (%) (Auto) 0.0, Basophils (%) (Auto) 0.0, Neutrophils # (Auto) 7.0, Lymphocytes # (Auto) 0.8L, Monocytes # (Auto) 0.5, Eosinophils # (Auto) 0.0, Basophils # (Auto) 0.0, Nucleated Red Blood Cells % (auto) 0.0, Anion Gap 6L, Glomerular Filtration Rate > 60.0, Calcium Level 7.7L, Magnesium Level 1.8 CBC/BMP Laboratory Tests 06/16/19 19:59 06/17/19 01:44 06/17/19 05:42 Assessment/Plan Date Seen The patient was seen on 06/17/19. Patient Summary This is a 78 y/o M admitted for gross hematuria and clot retention, POD 1 s/p cysto, clot evacuation, and fulguration. His Hb is stable. His catheter has drained well since surgery. Plan/VTE VTE Prophylaxis Ordered?: Yes VTE Exclusion Mechanical Proph: N/A:VTE Prophy Ordered Plan/Urinary Catheter Reason for insertion/continuin: Acute obstruct/retention Plan - CBI clamped off - will leave off as long as urine is pink or clearer - continue flomax - ambulate - if urine remains pink or clearer through tomorrow morning, then can resume xarelto at that time - will follow THERESE TAYLOR MD Jun 17, 2019 14:01
--- NOTE | 2019-06-17 14:56 | ECGEPIP ---
[facility] - ED Test Date: 2019-06-16 Pat Name: ERICH ARIAS Department: Room: - Gender: Male Shuttle Filler: : 1940 Requested By: JOHNIE HEWITT PA-C. Order Number: [id number] Reading MD: Griselda Rosado Measurements Intervals [place] Rate: 69 P: AK: 0 QRS: -43 QRSD: 205 T: 90 QT: 471 QTc: 508 Interpretive Statements ELECTRONIC VENTRICULAR PACEMAKER ABNORMAL RHYTHM ECG SIMILAR 11/27/18 Electronically Signed on 06-17-2019 14:56:29 EST by Griselda Rosado
[2019-06-17 16:00] VITALS: BP 115/61
[2019-06-17 20:00] VITALS: BP 105/59
[2019-06-17] MEDS: DUTASTERIDE 0.5 MG CAP (AVODART) PO SCH (21:12)
[2019-06-17] MEDS: SIMVASTATIN 40 MG TAB PO SCH (21:12)
[2019-06-17] MEDS: TAMSULOSIN 0.4 MG CAP PO SCH (21:12)
[2019-06-17 23:59] VITALS: BP 123/59
[2019-06-18] VITALS (11 sets, daily range): BP systolic 110–142; BP diastolic 55–87
[2019-06-18 05:45] LABS: EOS # 0.1 10^3/uL (0.0-0.5); EOS % 1.5 % (0.0-3.0); HEMATOCRIT 28.1 % (42.0-52.0); HEMOGLOBIN 8.7 g/dl (13.5-17.5); LYMPH # 1.5 10^3/uL (1.5-5.0); LYMPH % 18.8 % (24.0-44.0); MEAN CORPUSCULAR HEMOGLOBIN 29.8 pg (27.0-33.0); MEAN CORPUSCULAR VOLUME 96.2 fl (80.0-96.0); MONO # 0.9 10^3/uL (0.0-0.8); MONO % 11.9 % (0.0-5.0); NEUTROPHILS # 5.3 10^3/uL (1.5-8.5); NEUTROPHILS % 67.5 % (36.0-66.0); PLATELET COUNT, AUTOMATED 110 10^3/uL (150-450); RED BLOOD COUNT 2.92 10^6/uL (4.30-6.10); WHITE BLOOD COUNT 7.9 10^3/uL (4.0-10.0)
[2019-06-18 06:12] LABS: BLOOD UREA NITROGEN 13 MG/DL (7-18); CALCIUM LEVEL 7.5 MG/DL (8.8-10.2); CARBON DIOXIDE LEVEL 26 MEQ/L (21-32); CHLORIDE LEVEL 111 MEQ/L (98-107); CREATININE FOR GFR 0.82 MG/DL (0.70-1.30); GLOMERULAR FILTRATION RATE > 60.0 (>42); GLUCOSE, FASTING 95 MG/DL (70-100); MAGNESIUM LEVEL 1.9 MG/DL (1.8-2.4); POTASSIUM SERUM 4.3 MEQ/L (3.5-5.1); SODIUM LEVEL 141 MEQ/L (136-145)
[2019-06-18] MEDS: BUDESONIDE 180MCG INHALER (PULMICORT FLEXHALER) INH SCH ×2 (07:39→19:42)
--- NOTE | 2019-06-18 08:19 | IPNPDOC ---
Subjective Date Seen The patient was seen on 06/18/19. Subjective Chief Complaint/HPI hematuria Events since last encounter CBI stopped. No need for flushing manually overnight. Drinking po well. Hgb 8.7 this am. Constitutional: Denies: Chills, Fever, Night Sweats Pulmonary: Denies: Dyspnea, Cough Gastrointestinal: Denies: Nausea, Vomiting, Abdominal Pain, Diarrhea, Constipation Genitourinary: Denies: Dysuria, Frequency, Incontinence, Retention Psych: Reports: Mood Normal; Denies: Depression, Memory Issues Objective Physical Examination General Exam: Positive: Alert, No Acute Distress Chest Exam: Positive: Clear to auscultation, Normal air movement Telemetry: Positive: No significant arrhythmia Abdomen Exam: Positive: Normal bowel sounds, Soft; Negative: Tenderness, Hepatospenomegaly Male Exam: Positive: Normal Genital Exam (bleeding with gauze around cee insertion) Psych Exam: Positive: Mental status NL, Mood NL, Oriented x 3 Assessment /Plan Problems (1) BPH loc w urin obs/LUTS Status: Acute Problem Specific Plan: Consult Specialist Problem Text: Cee placed 06/12/2019. Urology following. urine shows some s ediment, but is clear. continue with po management. (2) Acute blood loss anemia Status: Acute Problem Text: repeat labs today at 1000. consider transfusion pending results (3) Gross hematuria Status: Acute Problem Text: most likely secondary to trauma with urinary catheter manipulation - Patient has presented to the emergency room with complaints of suprapubic discomfort and blood around the Cee catheter - Suprapubic tenderness appreciated - No leukocytosis; hemoglobin is stable - Patient has been seen and evaluated by urology: intervention completed with clot evacuation - Patient has a triple-lumen catheter placed for continuous bladder irrigation - Will continue to follow H&H every 6 hours; will transfuse as needed - Discussed anti-coagulation with urology at this point, well hold off until Hematuria resolves - Urology on consultation Urine is clear/pink. Management deferred to urologylikely 2/2 traumati (4) CAD (coronary artery disease) Status: Chronic Problem Text: continue with ASA (5) Atrial fibrillation Status: Chronic Problem Text: Pt. denies any chest pain, shortness of breath or palpitations - Patients EKG was compared to prior. Does not reveal any significant change - Well continue with telemetryt - c/w Atenolol and Digoxin for rate control - Will hold anticoagulation with Eliquis rate controlled. (6) HTN (hypertension) Status: Chronic Response to Treatment: Stable Problem Text: Continue with home dose Atenolol (7) GERD (gastroesophageal reflux disease) Status: Chronic Response to Treatment: Stable Problem Text: continue with home PPI (8) COPD (chronic obstructive pulmonary disease) Status: Chronic Response to Treatment: Stable Problem Text: oxygen saturation stable. (9) Hyperlipemia Status: Chronic Problem Text: continue simvastatin (10) Migraine Status: Chronic Response to Treatment: Stable Problem Text: denies YARBROUGH Plan/VTE VTE Prophylaxis Ordered?: Yes VTE Exclusion Mechanical Proph: N/A:VTE Prophy Ordered Plan/Urinary Catheter Reason for insertion/continuin: Acute obstruct/retention VS, I&O, 24H, Fishbone Vital Signs/I&O Vital Signs Date Time Temp Pulse Resp B/P (MAP) Pulse Ox O2 Delivery O2 Flow Rate FiO2 06/18/19 04:00 97.8 70 16 116/55 (75) 97 Room Air 06/17/19 20:00 2.0 I&O- Last 24 Hours up to 6 AM 06/18/19 06:00 Intake Total 5700 ml Output Total 5225 ml Balance 475 ml Laboratory Data 24H LABS Laboratory Tests 2 06/18/19 05:33: Immature Granulocyte % (Auto) 0.3, Neutrophils (%) (Auto) 67.5H, Lymphocytes (%) (Auto) 18.8L, Monocytes (%) (Auto) 11.9H, Eosinophils (%) (Auto) 1.5, Basophils (%) (Auto) 0.0, Neutrophils # (Auto) 5.3, Lymphocytes # (Auto) 1.5, Monocytes # (Auto) 0.9H, Eosinophils # (Auto) 0.1, Basophils # (Auto) 0.0, Nucleated Red Blood Cells % (auto) 0.0, Anion Gap 4L, Glomerular Filtration Rate > 60.0, Calcium Level 7.5L, Magnesium Level 1.9 CBC/BMP Laboratory Tests 06/18/19 05:33 Jadyn Syed [employer] Jun 18, 2019 08:19
[2019-06-18] MEDS: ASPIRIN 81 MG ENTERIC TAB PO SCH (09:02)
[2019-06-18] MEDS: DIGOXIN 0.25 MG TAB PO SCH (09:03)
[2019-06-18] MEDS: KETOROLAC 0.4% OS SCH ×4 (09:03→20:32)
[2019-06-18] MEDS: MULTIVITAMINS/MINERALS THERAP 1 TAB PO SCH (09:03)
[2019-06-18] MEDS: OMEPRAZOLE 20 MG CAP PO SCH (09:03)
[2019-06-18] MEDS: OPTH OS SCH ×5 (09:03→20:32)
[2019-06-18] MEDS: atenoloL 50 MG TAB PO SCH ×2 (09:03→20:32)
[2019-06-18] MEDS: PREDNISOLONE 1% OS SCH (09:03)
[2019-06-18 10:47] LABS: BASO % 0.1 % (0.0-1.0); EOS # 0.2 10^3/uL (0.0-0.5); EOS % 2.1 % (0.0-3.0); HEMATOCRIT 27.2 % (42.0-52.0); HEMOGLOBIN 8.7 g/dl (13.5-17.5); LYMPH # 1.5 10^3/uL (1.5-5.0); LYMPH % 19.3 % (24.0-44.0); MEAN CORPUSCULAR HEMOGLOBIN 30.5 pg (27.0-33.0); MEAN CORPUSCULAR VOLUME 95.4 fl (80.0-96.0); MONO % 13.1 % (0.0-5.0); NEUTROPHILS # 4.9 10^3/uL (1.5-8.5); NEUTROPHILS % 65.1 % (36.0-66.0); PLATELET COUNT, AUTOMATED 127 10^3/uL (150-450); RED BLOOD COUNT 2.85 10^6/uL (4.30-6.10); WHITE BLOOD COUNT 7.6 10^3/uL (4.0-10.0)
--- NOTE | 2019-06-18 13:04 | IPNPDOC ---
Subjective Review oF Systems Chief Complaint The patient is a 78-year-old male admitted with a reason for visit of Clot Hematuria. Events since Last Encounter No acute events o/n. CBI has been off since the patient was seen yesterday afternoon. He has not required manual irrigation. No f/c/ns. Objective Physical Examination General Exam: Alert, Cooperative ABDOMEN EXAM: Soft; No: Tenderness Skin Exam: Nl turgor and temperature Neuro Exam: Normal Speech Psych Exam: Mental status NL, Mood NL Other physical findings catheter in place and draining clear urine Vital Signs/I&O Vital Signs Date Time Temp Pulse Resp B/P (MAP) Pulse Ox O2 Delivery O2 Flow Rate FiO2 06/18/19 12:00 96.9 70 19 122/63 (82) 98 Room Air 06/17/19 20:00 2.0 I&O- Last 24 Hours up to 6 AM 06/18/19 06:00 Intake Total 5700 ml Output Total 5225 ml Balance 475 ml Laboratory Data Labs 24H Laboratory Tests 2 06/18/19 05:33: Immature Granulocyte % (Auto) 0.3, Neutrophils (%) (Auto) 67.5H, Lymphocytes (%) (Auto) 18.8L, Monocytes (%) (Auto) 11.9H, Eosinophils (%) (Auto) 1.5, Basophils (%) (Auto) 0.0, Neutrophils # (Auto) 5.3, Lymphocytes # (Auto) 1.5, Monocytes # (Auto) 0.9H, Eosinophils # (Auto) 0.1, Basophils # (Auto) 0.0, Nucleated Red Blo od Cells % (auto) 0.0, Anion Gap 4L, Glomerular Filtration Rate > 60.0, Calcium Level 7.5L, Magnesium Level 1.9 06/18/19 10:08: Immature Granulocyte % (Auto) 0.3, Neutrophils (%) (Auto) 65.1, Lymphocytes (%) (Auto) 19.3L, Monocytes (%) (Auto) 13.1H, Eosinophils (%) (Auto) 2.1, Basophils (%) (Auto) 0.1, Neutrophils # (Auto) 4.9, Lymphocytes # (Auto) 1.5, Monocytes # (Auto) 1.0H, Eosinophils # (Auto) 0.2, Basophils # (Auto) 0.0, Nucleated Red Blood Cells % (auto) 0.0 CBC/BMP Laboratory Tests 06/18/19 05:33 06/18/19 10:08 Assessment/Plan Date Seen The patient was seen on 06/18/19. Patient Summary This is a 78 y/o M admitted for gross hematuria and clot retention, POD 2 s/p cysto, clot evacuation, and fulguration. His urine is clear. Plan/VTE VTE Prophylaxis Ordered?: Yes VTE Exclusion Mechanical Proph: N/A:VTE Prophy Ordered Plan/Urinary Catheter Reason for insertion/continuin: Acute obstruct/retention Plan - cont catheter to gravity drainage - cont flomax - ok to resume xarelto from urologic standpoint - will plan to do a voiding trial tomorrow morning THERESE TAYLOR MD Jun 18, 2019 13:04
[2019-06-18] MEDS ORDERED: MIRALAX *UNIT DOSE* 17GM PACKET PO PRN (15:15)
[2019-06-18 17:52] LABS: HEMATOCRIT 30.3 % (42.0-52.0); HEMOGLOBIN 9.6 g/dl (13.5-17.5)
[2019-06-18] MEDS: TAMSULOSIN 0.4 MG CAP PO SCH (20:31)
[2019-06-18] MEDS: DUTASTERIDE 0.5 MG CAP (AVODART) PO SCH (20:32)
[2019-06-18] MEDS: SIMVASTATIN 40 MG TAB PO SCH (20:32)
[2019-06-19 04:00] VITALS: BP 126/68
[2019-06-19 06:02] LABS: BASO % 0.2 % (0.0-1.0); EOS # 0.3 10^3/uL (0.0-0.5); EOS % 4.8 % (0.0-3.0); HEMATOCRIT 30.4 % (42.0-52.0); HEMOGLOBIN 9.6 g/dl (13.5-17.5); LYMPH # 1.3 10^3/uL (1.5-5.0); LYMPH % 22.3 % (24.0-44.0); MEAN CORPUSCULAR HEMOGLOBIN 29.8 pg (27.0-33.0); MEAN CORPUSCULAR HGB CONC 31.6 g/dl (32.0-36.5); MEAN CORPUSCULAR VOLUME 94.4 fl (80.0-96.0); MONO # 0.7 10^3/uL (0.0-0.8); MONO % 12.5 % (0.0-5.0); NEUTROPHILS # 3.5 10^3/uL (1.5-8.5); NEUTROPHILS % 59.7 % (36.0-66.0); PLATELET COUNT, AUTOMATED 117 10^3/uL (150-450); RED BLOOD COUNT 3.22 10^6/uL (4.30-6.10); WHITE BLOOD COUNT 5.8 10^3/uL (4.0-10.0)
[2019-06-19 06:28] LABS: BLOOD UREA NITROGEN 12 MG/DL (7-18); CALCIUM LEVEL 7.6 MG/DL (8.8-10.2); CARBON DIOXIDE LEVEL 28 MEQ/L (21-32); CHLORIDE LEVEL 110 MEQ/L (98-107); CREATININE FOR GFR 0.75 MG/DL (0.70-1.30); GLOMERULAR FILTRATION RATE > 60.0 (>42); GLUCOSE, FASTING 86 MG/DL (70-100); MAGNESIUM LEVEL 1.9 MG/DL (1.8-2.4); SODIUM LEVEL 141 MEQ/L (136-145)
[2019-06-19] MEDS: BUDESONIDE 180MCG INHALER (PULMICORT FLEXHALER) INH SCH ×2 (07:53→18:41)
[2019-06-19 08:00] VITALS: BP 130/68
[2019-06-19] MEDS: ASPIRIN 81 MG ENTERIC TAB PO SCH (08:37)
[2019-06-19] MEDS: MULTIVITAMINS/MINERALS THERAP 1 TAB PO SCH (08:38)
[2019-06-19] MEDS: atenoloL 50 MG TAB PO SCH ×2 (08:38→21:53)
[2019-06-19] MEDS: OMEPRAZOLE 20 MG CAP PO SCH (08:38)
[2019-06-19] MEDS: DIGOXIN 0.25 MG TAB PO SCH (08:38)
[2019-06-19] MEDS: KETOROLAC 0.4% OS SCH ×4 (08:38→21:53)
[2019-06-19] MEDS: OPTH OS SCH ×5 (08:38→21:53)
[2019-06-19] MEDS: PREDNISOLONE 1% OS SCH (08:39)
--- NOTE | 2019-06-19 11:30 | IPNPDOC ---
Subjective Date Seen The patient was seen on 06/19/19. Subjective Chief Complaint/HPI Pt this morning states that his cee was taken out and since then he has had lower abd/pelvic pain. + Blood in hios urine. Nursing aware, Uro aware. Dr Childress states pt can resume anticoag whenever primary teams feels appropriate. General: Denies: Fatigue Constitutional: Denies: Chills, Fever ENT: Denies: Head Aches Pulmonary: Denies: Dyspnea, Cough Cardiovascular: Denies: Chest Pain, Palpitations Gastrointestinal: Reports: Abdominal Pain; Denies: Nausea, Vomiting Psych: Reports: Mood Normal Objective Physical Examination General Exam: Positive: Alert, No Acute Distress ENT Exam: Positive: Mucous membr. moist/pink Chest Exam: Positive: Clear to auscultation, Normal air movement Heart Exam: Positive: Rate Normal, Regular Rhythm, Normal S1, Normal S2; Negative: Murmurs, Rubs Telemetry: Positive: No significant arrhythmia Abdomen Exam: Positive: Normal bowel sounds, Soft; Negative: Tenderness, Hepatospenomegaly Male Exam: Positive: Normal Genital Exam (bleeding with gauze around cee insertion) Psych Exam: Positive: Mental status NL, Mood NL, Oriented x 3 Assessment /Plan Problems (1) BPH loc w urin obs/LUTS Status: Acute Problem Specific Plan: Consult Specialist Problem Text: 06/19 cee removed this morning, + hematuria since, monitor, this is likely trauma related, will repeat Hgb at 2 pm. If Hgb stable and urine begins to clear up can resume anticoags. (2) Gross hematuria Status: Acute Problem Text: most likely secondary to trauma with urinary catheter manipulation - Patient has presented to the emergency room with complaints of suprapubic discomfort and blood around the Cee catheter - Suprapubic tenderness appreciated - No leukocytosis; hemoglobin is stable - Patient has been seen and evaluated by urology: intervention completed with clot evacuation - Patient has a triple-lumen catheter placed for continuous bladder irrigation - Will continue to follow H&H every 6 hours; will transfuse as needed - Discussed anti-coagulation with urology at this point, well hold off until Hematuria resolves - Urology on consultation Urine is clear/pink. Management deferred to urology likely 2/2 trauma (3) CAD (coronary artery disease) Status: Chronic Problem Text: continue with ASA (4) Atrial fibrillation Status: Chronic Problem Text: Pt. denies any chest pain, shortness of breath or palpitations - Patients EKG was compared to prior. Does not reveal any significant change - Well continue with telemetryt - c/w Atenolol and Digoxin for rate control - Will hold anticoagulation with Eliquis rate controlled. (5) HTN (hypertension) Status: Chronic Response to Treatment: Stable Problem Text: Continue with home dose Atenolol (6) GERD (gastroesophageal reflux disease) Status: Chronic Response to Treatment: Stable Problem Text: continue with home PPI (7) COPD (chronic obstructive pulmonary disease) Status: Chronic Response to Treatment: Stable Problem Text: oxygen saturation stable. (8) Hyperlipemia Status: Chronic Problem Text: continue simvastatin (9) Migraine Status: Chronic Response to Treatment: Stable Problem Text: denies YARBROUGH Plan/VTE VTE Prophylaxis Ordered?: Yes VTE Exclusion Mechanical Proph: N/A:VTE Prophy Ordered Plan/Urinary Catheter Reason for insertion/continuin: Acute obstruct/retention VS, I&O, 24H, Fishbone Vital Signs/I&O Vital Signs Date Time Temp Pulse Resp B/P (MAP) Pulse Ox O2 Delivery O2 Flow Rate FiO2 06/19/19 08:38 71 06/19/19 08:38 130/68 06/19/19 08:00 97.4 17 95 Room Air 06/17/19 20:00 2.0 I&O- Last 24 Hours up to 6 AM 06/19/19 06:00 Intake Total 5620 ml Output Total 9150 ml Balance -3530 ml Laboratory Data 24H LABS Laboratory Tests 2 06/19/19 05:33: Immature Granulocyte % (Auto) 0.5, Neutrophils (%) (Auto) 59.7, Lymphocytes (%) (Auto) 22.3L, Monocytes (%) (Auto) 12.5H, Eosinophils (%) (Auto) 4.8H, Basophils (%) (Auto) 0.2, Neutrophils # (Auto) 3.5, Lymphocytes # (Auto) 1.3L, Monocytes # (Auto) 0.7, Eosinophils # (Auto) 0.3, Basophils # (Auto) 0.0, Nucleated Red Blood Cells % (auto) 0.0, Anion Gap 3L, Glomerular Filtration Rate > 60.0, Calcium Level 7.6L, Magnesium Level 1.9 CBC/BMP Laboratory Tests 06/18/19 17:37 06/19/19 05:33 ANNITA SONG PA-C Jun 19, 2019 11:29
[2019-06-19] MEDS ORDERED: SLF 3 ML SYR IV PRN (11:45)
[2019-06-19] MEDS ORDERED: NORCO, ANEXSIA 5/325MG TABLET (HYDROcodone/ACETAMINOPHEN) PO ONE (14:00)
[2019-06-19] MEDS: SLF 3 ML SYR IV SCH ×2 (14:35→21:54)
[2019-06-19 16:25] VITALS: BP_SYST 150; BP_SYST 161; BP_DIAS 82; BP_DIAS 84
[2019-06-19 17:49] VITALS: BP 150/82
[2019-06-19] MEDS: SIMVASTATIN 40 MG TAB PO SCH (21:51)
[2019-06-19] MEDS: DUTASTERIDE 0.5 MG CAP (AVODART) PO SCH (21:52)
[2019-06-19] MEDS: TAMSULOSIN 0.4 MG CAP PO SCH (21:52)
[2019-06-19 22:00] VITALS: BP 132/65
[2019-06-19] MEDS ORDERED: ONDANSETRON 4MG/2ML VIAL (J2405) IV PRN (22:30)
[2019-06-19 23:15] VITALS: BP 147/76
[2019-06-20] MEDS: NORCO, ANEXSIA 5/325MG TABLET (HYDROcodone/ACETAMINOPHEN) PO PRN ×3 (01:46→23:55)
[2019-06-20 02:15] VITALS: BP 147/81
[2019-06-20] MEDS ORDERED: ONDANSETRON 4MG/2ML VIAL (J2405) IV ONE (02:30)
[2019-06-20] MEDS ORDERED: oxyBUTYnin 5 MG TAB PO ONE (02:45)
[2019-06-20 06:00] VITALS: BP 146/75
[2019-06-20 06:03] LABS: BASO % 0.2 % (0.0-1.0); EOS # 0.2 10^3/uL (0.0-0.5); EOS % 2.6 % (0.0-3.0); HEMATOCRIT 27.7 % (42.0-52.0); HEMOGLOBIN 9.2 g/dl (13.5-17.5); LYMPH # 0.8 10^3/uL (1.5-5.0); LYMPH % 13.8 % (24.0-44.0); MEAN CORPUSCULAR HEMOGLOBIN 30.5 pg (27.0-33.0); MEAN CORPUSCULAR HGB CONC 33.2 g/dl (32.0-36.5); MEAN CORPUSCULAR VOLUME 91.7 fl (80.0-96.0); MONO # 0.6 10^3/uL (0.0-0.8); MONO % 11.2 % (0.0-5.0); NEUTROPHILS # 4.1 10^3/uL (1.5-8.5); NEUTROPHILS % 71.3 % (36.0-66.0); PLATELET COUNT, AUTOMATED 125 10^3/uL (150-450); RED BLOOD COUNT 3.02 10^6/uL (4.30-6.10); WHITE BLOOD COUNT 5.7 10^3/uL (4.0-10.0)
[2019-06-20] MEDS: SLF 3 ML SYR IV SCH ×3 (06:11→21:33)
[2019-06-20 06:21] LABS: BLOOD UREA NITROGEN 11 MG/DL (7-18); CALCIUM LEVEL 7.4 MG/DL (8.8-10.2); CARBON DIOXIDE LEVEL 27 MEQ/L (21-32); CHLORIDE LEVEL 99 MEQ/L (98-107); CREATININE FOR GFR 0.56 MG/DL (0.70-1.30); GLOMERULAR FILTRATION RATE > 60.0 (>42); GLUCOSE, FASTING 112 MG/DL (70-100); MAGNESIUM LEVEL 1.7 MG/DL (1.8-2.4); POTASSIUM SERUM 3.9 MEQ/L (3.5-5.1); SODIUM LEVEL 132 MEQ/L (136-145)
[2019-06-20] MEDS: BUDESONIDE 180MCG INHALER (PULMICORT FLEXHALER) INH SCH ×2 (06:41→20:38)
[2019-06-20] MEDS: ASPIRIN 81 MG ENTERIC TAB PO SCH (08:46)
[2019-06-20] MEDS: oxyBUTYnin 5 MG TAB PO SCH ×4 (08:46→21:30)
[2019-06-20] MEDS: DIGOXIN 0.25 MG TAB PO SCH (08:47)
[2019-06-20] MEDS: atenoloL 50 MG TAB PO SCH ×2 (08:47→21:32)
[2019-06-20] MEDS: MULTIVITAMINS/MINERALS THERAP 1 TAB PO SCH (08:47)
[2019-06-20] MEDS: OMEPRAZOLE 20 MG CAP PO SCH (08:47)
[2019-06-20] MEDS: OPTH OS SCH ×5 (08:48→21:33)
[2019-06-20] MEDS: PREDNISOLONE 1% OS SCH (08:48)
[2019-06-20] MEDS: KETOROLAC 0.4% OS SCH ×4 (08:48→21:33)
[2019-06-20 14:00] VITALS: BP 120/60
--- NOTE | 2019-06-20 16:31 | IPNPDOC ---
Subjective Date Seen The patient was seen on 06/20/19. Subjective Chief Complaint/HPI Mr. Cat is not pleased about having a urinary catheter back in. He reports it's uncomfortable although he's glad that he can urinate, because urinary retention is uncomfortable two. I spoke to Dr. Childress with regards to this patient. He states that he has already had a trial of voiding which he passed yesterday morning, but went into retention again last night. He does not recommend another trial of voiding. He is recommended the patient be discharged with the catheter in placed. He will probably need a TURP which they will schedule during his follow-up visit with urology. Nursing reports that the patient vomited last night. He has not done so during the day today. General: Reports: Normal Appetite Constitutional: Denies: Chills, Fever Pulmonary: Denies: Dyspnea, Cough Cardiovascular: Denies: Chest Pain, Palpitations Gastrointestinal: Reports: Vomiting; Denies: Abdominal Pain, Diarrhea Genitourinary: Reports: Hematuria, Retention Psych: Reports: Mood Normal Objective Physical Examination General Exam: Positive: Alert, Cooperative, No Acute Distress (laying in bed watching TV when I entered the room) Eye Exam: Positive: Conjunctiva & lids normal; Negative: Sclera icteric ENT Exam: Positive: Mucous membr. moist/pink Neck Exam: Positive: Supple; Negative: Lymphadenopathy Chest Exam: Positive: Clear to auscultation, Normal air movement Heart Exam: Positive: Rate Normal, Regular Rhythm, Normal S1, Normal S2 Abdomen Exam: Positive: Normal bowel sounds, Soft; Negative: Tenderness, Hepatospenomegaly Male Exam: Positive: Edema (of the penis and scrotum); Negative: Normal Genital Exam (some old blood noted around cee insertion) Extremity Exam: Negative: Edema Psych Exam: Positive: Mental status NL, Mood NL, Oriented x 3 Assessment /Plan Problems (1) BPH loc w urin obs/LUTS Status: Acute Problem Specific Plan: Consult Specialist Problem Text: 06/20 - he went into retention again last night and the Cee had to be reinserted. There is currently no hematuria noted in the Cee tube. At this point the intention will be to discharge him with a Cee in place and follow up with urology. Dr. Childress feels that he will likely need a TURP in the relatively near future. 06/19 cee removed this morning, + hematuria since, monitor, this is likely trauma related, will repeat Hgb at 2 pm. If Hgb stable and urine begins to clear up can resume anticoags. (2) Gross hematuria Status: Resolved Problem Text: Most likely secondary to trauma with urinary catheter manipulation. (3) Vomiting Status: Acute Discussed With: Nurse, Patient Problem Specific Plan: Monitor Clinically Problem Text: This seems to be acute thing in may very likely be related to something simple like a viral gastroenteritis. Could also be related to his urinary retention and the replacement of the Cee, which he is not keen on. At any rate seems to have resolved. We'll monitor. (4) Acute hyponatremia Status: Acute Discussed With: Patient Problem Specific Plan: Repeat Labs Problem Text: Probably related to the vomiting. We'll monitor carefully to make sure this is not a newly developing trend. (5) Hypomagnesemia Status: Acute Discussed With: Nurse, Patient Problem Specific Plan: Repeat Labs Problem Text: Probably related to the vomiting. I ordered oral repletion today. We'll monitor his level tomorrow. (6) Atrial fibrillation Status: Chronic Problem Text: Pt. denies any chest pain, shortness of breath or palpitations. Rate controlled, in fact he sounds regular today c/w Atenolol and Digoxin for rate control. Xarelto was resumed today anticipation for discharge tomorrow. We'll need to watch carefully for worsening hematuria. (7) CAD (coronary artery disease) Status: Chronic Problem Text: continue with ASA (8) HTN (hypertension) Status: Chronic Response to Treatment: Stable Problem Text: Continue with home dose Atenolol (9) GERD (gastroesophageal reflux disease) Status: Chronic Response to Treatment: Stable Problem Text: continue with home PPI (10) COPD (chronic obstructive pulmonary disease) Status: Chronic Response to Treatment: Stable Problem Text: oxygen saturation stable. (11) Hyperlipemia Status: Chronic Problem Text: continue simvastatin (12) Migraine Status: Chronic Response to Treatment: Stable Problem Text: denies YARBROUGH Plan/VTE VTE Prophylaxis Ordered?: Yes VTE Exclusion Mechanical Proph: N/A:VTE Prophy Ordered Plan/Urinary Catheter Reason for insertion/continuin: Acute obstruct/retention Plan Anticipated Discharge: Home VS, I&O, 24H, Fishbone Vital Signs/I&O Vital Signs Date Time Temp Pulse Resp B/P (MAP) Pulse Ox O2 Delivery O2 Flow Rate FiO2 06/20/19 14:00 97.7 77 20 120/60 (80) 96 Room Air 06/17/19 20:00 2.0 I&O- Last 24 Hours up to 6 AM 06/20/19 06:00 Intake Total 3360 ml Output Total 2000 ml Balance 1360 ml Laboratory Data 24H LABS Laboratory Tests 2 06/20/19 05:26: Immature Granulocyte % (Auto) 0.9, Neutrophils (%) (Auto) 71.3H, Lymphocytes (%) (Auto) 13.8L, Monocytes (%) (Auto) 11.2H, Eosinophils (%) (Auto) 2.6, Basophils (%) (Auto) 0.2, Neutrophils # (Auto) 4.1, Lymphocytes # (Auto) 0.8L, Monocytes # (Auto) 0.6, Eosinophils # (Auto) 0.2, Basophils # (Auto) 0.0, Nucleated Red Blood Cells % (auto) 0.0, Anion Gap 6L, Glomerular Filtration Rate > 60.0, Calcium Level 7.4L, Magnesium Level 1.7L CBC/BMP Laboratory Tests 06/20/19 05:26 Trey Abernathy MD Jun 20, 2019 4:31 pm
[2019-06-20] MEDS ORDERED: MAGNESIUM OXIDE 400 MG TAB (MAG-OX) PO ONE (17:00)
[2019-06-20] MEDS: RIVAROXABAN 20 MG TAB (XARELTO) PO SCH (17:11)
[2019-06-20] MEDS: DUTASTERIDE 0.5 MG CAP (AVODART) PO SCH (21:29)
[2019-06-20] MEDS: TAMSULOSIN 0.4 MG CAP PO SCH (21:31)
[2019-06-20] MEDS: SIMVASTATIN 40 MG TAB PO SCH (21:31)
[2019-06-20 22:00] VITALS: BP 115/57
[2019-06-21 06:00] VITALS: BP 119/57
[2019-06-21 06:30] LABS: BASO % 0.2 % (0.0-1.0); EOS # 0.2 10^3/uL (0.0-0.5); EOS % 3.8 % (0.0-3.0); HEMATOCRIT 30.6 % (42.0-52.0); HEMOGLOBIN 9.9 g/dl (13.5-17.5); LYMPH # 1.1 10^3/uL (1.5-5.0); LYMPH % 17.8 % (24.0-44.0); MEAN CORPUSCULAR HEMOGLOBIN 30.3 pg (27.0-33.0); MEAN CORPUSCULAR HGB CONC 32.4 g/dl (32.0-36.5); MEAN CORPUSCULAR VOLUME 93.6 fl (80.0-96.0); MONO # 0.8 10^3/uL (0.0-0.8); MONO % 13.1 % (0.0-5.0); NEUTROPHILS # 4.1 10^3/uL (1.5-8.5); NEUTROPHILS % 64.3 % (36.0-66.0); PLATELET COUNT, AUTOMATED 153 10^3/uL (150-450); RED BLOOD COUNT 3.27 10^6/uL (4.30-6.10); WHITE BLOOD COUNT 6.3 10^3/uL (4.0-10.0)
[2019-06-21] MEDS: SLF 3 ML SYR IV SCH ×3 (06:32→20:40)
[2019-06-21 06:50] LABS: BLOOD UREA NITROGEN 12 MG/DL (7-18); CALCIUM LEVEL 8.4 MG/DL (8.8-10.2); CARBON DIOXIDE LEVEL 28 MEQ/L (21-32); CHLORIDE LEVEL 105 MEQ/L (98-107); CREATININE FOR GFR 0.92 MG/DL (0.70-1.30); GLOMERULAR FILTRATION RATE > 60.0 (>42); GLUCOSE, FASTING 91 MG/DL (70-100); MAGNESIUM LEVEL 1.9 MG/DL (1.8-2.4); POTASSIUM SERUM 3.9 MEQ/L (3.5-5.1); SODIUM LEVEL 137 MEQ/L (136-145)
[2019-06-21] MEDS: BUDESONIDE 180MCG INHALER (PULMICORT FLEXHALER) INH SCH ×2 (08:04→20:24)
[2019-06-21] MEDS: DIGOXIN 0.25 MG TAB PO SCH (08:41)
[2019-06-21] MEDS: oxyBUTYnin 5 MG TAB PO SCH ×4 (08:41→20:38)
[2019-06-21] MEDS: MULTIVITAMINS/MINERALS THERAP 1 TAB PO SCH (08:42)
[2019-06-21] MEDS: atenoloL 50 MG TAB PO SCH ×2 (08:42→20:37)
[2019-06-21] MEDS: OMEPRAZOLE 20 MG CAP PO SCH (08:42)
[2019-06-21] MEDS: ASPIRIN 81 MG ENTERIC TAB PO SCH (08:42)
[2019-06-21] MEDS: NORCO, ANEXSIA 5/325MG TABLET (HYDROcodone/ACETAMINOPHEN) PO PRN (08:43)
[2019-06-21] MEDS: PREDNISOLONE 1% OS SCH (08:45)
[2019-06-21] MEDS: OPTH OS SCH ×5 (08:45→20:39)
[2019-06-21] MEDS: KETOROLAC 0.4% OS SCH ×4 (08:45→20:39)
--- NOTE | 2019-06-21 12:05 | IPNPDOC ---
Subjective Date Seen The patient was seen on 06/21/19. Subjective Chief Complaint/HPI I saw Mr. Cat and his today with Dr. Childress. He has not vomited since early yesterday. His electrolytes have normalized. He is tolerating the Xarelto without any more hematuria. He continues to have significant painful bladder spasms. This seems to be what is keeping him admitted at this time. He also reports that he is getting dry mouth and thinks it is related to when he takes the oxybutynin. General: Reports: Normal Appetite Pulmonary: Reports: Dyspnea; Denies: Cough Cardiovascular: Denies: Chest Pain, Palpitations Gastrointestinal: Denies: Nausea, Vomiting Genitourinary: Reports: Hematuria (improving, stable enough for discharge), Retention (managed with a Cee for at least the next two weeks), Other Symptoms (painful bladder spasms that are intermittent but frequent) Hematologic: Denies: Bruising, Bleeding Excessively, [place] Psych: Reports: Mood Normal Objective Physical Examination General Exam: Positive: Alert, Cooperative, No Acute Distress (sitting in a chair talking with his when I entered the room) Eye Exam: Positive: Conjunctiva & lids normal; Negative: Sclera icteric ENT Exam: Positive: Mucous membr. moist/pink Neck Exam: Positive: Supple; Negative: Lymphadenopathy Chest Exam: Positive: Clear to auscultation, Normal air movement Heart Exam: Positive: Rate Normal, Regular Rhythm (or regular enough that I couldn't detect the irregularily with auscultation), Normal S1, Normal S2 Abdomen Exam: Positive: Normal bowel sounds, Soft; Negative: Tenderness, Hepatospenomegaly Extremity Exam: Negative: Edema Psych Exam: Positive: Mental status NL, Mood NL, Oriented x 3 Assessment /Plan Problems (1) BPH loc w urin obs/LUTS Status: Acute Problem Specific Plan: Consult Specialist Problem Text: 06/21 - Dr. Childress was clear with the patient and family - he will need to have the catheter in for at least 2 weeks while he gets back on his Flomax and any injury that may have happened to his prostate heals. At that point they will do another trial of void. Dr. Childress is skeptical that this will work, but both he and the patient/family would like to try. If it does not work then he will need to be scheduled for a TURP. 06/20 - he went into retention again last night and the Cee had to be reinserte d. There is currently no hematuria noted in the Cee tube. At this point the intention will be to discharge him with a Cee in place and follow up with urology. Dr. Childress feels that he will likely need a TURP in the relatively near future. 06/19 cee removed this morning, + hematuria since, monitor, this is likely trauma related, will repeat Hgb at 2 pm. If Hgb stable and urine begins to harry ar up can resume anticoags. (2) Spasmodic bladder Status: Acute Response to Treatment: Uncontrolled Discussed With: Nurse, Tours Captain, Patient, Family with Pt Consent Problem Specific Plan: Monitor Clinically, Repeat Labs Problem Text: The plan for his bladder is to check for a UTI. He will also be changed from oxybutynin to B&O suppositories which will likely help more. Once his bladder spasms are effectively controlled he can be discharged. (3) Atrial fibrillation Status: Chronic Problem Text: Pt. denies any chest pain, shortness of breath or palpitations. Rate controlled, in fact he sounds regular today c/w Atenolol and Digoxin for rate control. Xarelto has been resumed. (4) CAD (coronary artery disease) Status: Chronic Problem Text: continue with ASA (5) HTN (hypertension) Status: Chronic Response to Treatment: Stable Problem Text: Continue with home dose Atenolol (6) GERD (gastroesophageal reflux disease) Status: Chronic Response to Treatment: Stable Problem Text: continue with home PPI (7) COPD (chronic obstructive pulmonary disease) Status: Chronic Response to Treatment: Stable Problem Text: oxygen saturation stable. (8) Hyperlipemia Status: Chronic Problem Text: continue simvastatin (9) Migraine Status: Chronic Response to Treatment: Stable Problem Text: denies YARBROUGH (10) Gross hematuria Status: Resolved Problem Text: Most likely secondary to trauma with urinary catheter manipulation. (11) Vomiting Status: Resolved Discussed With: Nurse, Patient Problem Specific Plan: Monitor Clinically Problem Text: This seems to be acute thing in may very likely be related to something simple like a viral gastroenteritis. Could also be related to his urinary retention and the replacement of the Cee, which he is not keen on. At any rate seems to have resolved. We'll monitor. (12) Acute hyponatremia Status: Resolved Discussed With: Patient Problem Specific Plan: Repeat Labs Problem Text: Probably related to the vomiting. We'll monitor carefully to make sure this is not a newly developing trend. (13) Hypomagnesemia Status: Resolved Discussed With: Nurse, Patient Problem Specific Plan: Repeat Labs Problem Text: Probably related to the vomiting. I ordered oral repletion today. We'll monitor his level tomorrow. Plan/VTE VTE Prophylaxis Ordered?: Yes (Xarelto) VTE Exclusion Mechanical Proph: N/A:VTE Prophy Ordered Plan/Urinary Catheter Reason for insertion/continuin: Acute obstruct/retention Plan Anticipated Discharge: Home VS, I&O, 24H, Fishbone Vital Signs/I&O Vital Signs Date Time Temp Pulse Resp B/P (MAP) Pulse Ox O2 Delivery O2 Flow Rate FiO2 06/21/19 09:40 18 Room Air 06/21/19 08:43 137/64 06/21/19 08:42 72 06/21/19 06:00 97.2 96 06/17/19 20:00 2.0 I&O- Last 24 Hours up to 6 AM 06/21/19 06:00 Intake Total 1500 ml Output Total 4525 ml Balance -3025 ml Laboratory Data 24H LABS Laboratory Tests 2 06/21/19 05:46: Immature Granulocyte % (Auto) 0.8, Neutrophils (%) (Auto) 64.3, Lymphocytes (%) (Auto) 17.8L, Monocytes (%) (Auto) 13.1H, Eosinophils (%) (Auto) 3.8H, Basophils (%) (Auto) 0.2, Neutrophils # (Auto) 4.1, Lymphocytes # (Auto) 1.1L, Monocytes # (Auto) 0.8, Eosinophils # (Auto) 0.2, Basophils # (Auto) 0.0, Nucleated Red Blood Cells % (auto) 0.0, Anion Gap 4L, Glomerular Filtration Rate > 60.0, Calcium Level 8.4L, Magnesium Level 1.9 CBC/BMP Laboratory Tests 06/21/19 05:46 Trey Abernathy MD Jun 21, 2019 12:05
--- NOTE | 2019-06-21 12:45 | IPNPDOC ---
Subjective Review oF Systems Chief Complaint The patient is a 78-year-old male admitted with a reason for visit of Clot Hematuria. Events since Last Encounter Patient noting intermittent suprapubic discomfort. Denies urethral pain. His catheter has drained well since being replaced Saturday morning w/o need for manual irrigation. No f/c/ns. Objective Physical Examination General Exam: Alert, Cooperative Neuro Exam: Normal Speech Psych Exam: Mental status NL, Mood NL Other physical findings 20Fr catheter in place w/ yellow urine draining in tubing Vital Signs/I&O Vital Signs Date Time Temp Pulse Resp B/P (MAP) Pulse Ox O2 Delivery O2 Flow Rate FiO2 06/21/19 09:40 18 Room Air 06/21/19 08:43 137/64 06/21/19 08:42 72 06/21/19 06:00 97.2 96 06/17/19 20:00 2.0 I&O- Last 24 Hours up to 6 AM 06/21/19 06:00 Intake Total 1500 ml Output Total 4525 ml Balance -3025 ml Laboratory Data Labs 24H Laboratory Tests 2 06/21/19 05:46: Immature Granulocyte % (Auto) 0.8, Neutrophils (%) (Auto) 64.3, Lymphocytes (%) (Auto) 17.8L, Monocytes (%) (Auto) 13.1H, Eosinophils (%) (Auto) 3.8H, Basophils (%) (Auto) 0.2, Neutrophils # (Auto) 4.1, Lymphocytes # (Auto) 1.1L, Monocytes # (Auto) 0.8, Eosinophils # (Auto) 0.2, Basophils # (Auto) 0.0, Nucleated Red Blood Cells % (auto) 0.0, Anion Gap 4L, Glomerular Filtration Rate > 60.0, Calcium Level 8.4L, Magnesium Level 1.9 CBC/BMP Laboratory Tests 06/21/19 05:46 Assessment/Plan Date Seen The patient was seen on 06/21/19. Patient Summary This is a 78 y/o M admitted for gross hematuria and clot retention, POD 5 s/p cysto, clot evacuation, and fulguration. He originally passed his voiding trial Saturday morning and then went back into retention late that evening. A new catheter was placed early Saturday morning and has been draining well since. His urine is clear. His only problem at this point is what appears to be very p ainful bladder spasms, not well controlled w/ oxybutynin. Plan/VTE VTE Prophylaxis Ordered?: Yes VTE Exclusion Mechanical Proph: N/A:VTE Prophy Ordered VTE Exclusion Pharmacological: N/A:VTE Prophy Ordered Plan/Urinary Catheter Reason for insertion/continuin: Acute obstruct/retention Plan - keep catheter to gravity drainage - send urine for UA/culture - if UA looks concerning for infection, will start him on an empiric course of abx - continue oxybutynin for now - continue flomax - order placed for B&O suppository to help w/ bladder spasms - will follow Anticipated Discharge: Home THERESE TAYLOR MD Jun 21, 2019 12:45
[2019-06-21] MEDS ORDERED: BELLADONNA 16.2mg/OPIUM 60mg 1 EA SUPP PR ONE (13:00)
[2019-06-21] MEDS: LevoFLOXacin 500 MG TABLET PO SCH (15:34)
[2019-06-21] MEDS: RIVAROXABAN 20 MG TAB (XARELTO) PO SCH (18:20)
[2019-06-21] MEDS: SIMVASTATIN 40 MG TAB PO SCH (20:36)
[2019-06-21] MEDS: TAMSULOSIN 0.4 MG CAP PO SCH (20:36)
[2019-06-21] MEDS: DUTASTERIDE 0.5 MG CAP (AVODART) PO SCH (20:37)
[2019-06-21 22:00] VITALS: BP 123/60
[2019-06-22 06:00] VITALS: BP 134/73
[2019-06-22] MEDS: LevoFLOXacin 500 MG TABLET PO SCH (06:10)
[2019-06-22] MEDS: SLF 3 ML SYR IV SCH ×2 (06:11→14:30)
[2019-06-22 06:15] LABS: BASO % 0.2 % (0.0-1.0); EOS # 0.2 10^3/uL (0.0-0.5); EOS % 4.4 % (0.0-3.0); HEMATOCRIT 28.8 % (42.0-52.0); HEMOGLOBIN 9.4 g/dl (13.5-17.5); LYMPH % 20.2 % (24.0-44.0); MEAN CORPUSCULAR HEMOGLOBIN 30.6 pg (27.0-33.0); MEAN CORPUSCULAR HGB CONC 32.6 g/dl (32.0-36.5); MEAN CORPUSCULAR VOLUME 93.8 fl (80.0-96.0); MONO # 0.7 10^3/uL (0.0-0.8); MONO % 14.1 % (0.0-5.0); NEUTROPHILS % 60.3 % (36.0-66.0); PLATELET COUNT, AUTOMATED 157 10^3/uL (150-450); RED BLOOD COUNT 3.07 10^6/uL (4.30-6.10)
[2019-06-22 06:33] LABS: BLOOD UREA NITROGEN 12 MG/DL (7-18); CALCIUM LEVEL 8.4 MG/DL (8.8-10.2); CARBON DIOXIDE LEVEL 30 MEQ/L (21-32); CHLORIDE LEVEL 106 MEQ/L (98-107); CREATININE FOR GFR 0.84 MG/DL (0.70-1.30); GLOMERULAR FILTRATION RATE > 60.0 (>42); GLUCOSE, FASTING 94 MG/DL (70-100); MAGNESIUM LEVEL 2.1 MG/DL (1.8-2.4); POTASSIUM SERUM 4.1 MEQ/L (3.5-5.1); SODIUM LEVEL 140 MEQ/L (136-145)
[2019-06-22] MEDS: BUDESONIDE 180MCG INHALER (PULMICORT FLEXHALER) INH SCH ×2 (08:00→18:38)
--- NOTE | 2019-06-22 08:19 | IPNPDOC ---
Subjective Review oF Systems Chief Complaint The patient is a 78-year-old male admitted with a reason for visit of Clot Hematuria. Events since Last Encounter The patient notes that his suprapubic pain improved significantly after the catheter balloon was let down and then the catheter was advanced in more yesterday afternoon. He denies n/v. No f/c/ns. Objective Physical Examination General Exam: Alert, Cooperative Neuro Exam: Normal Speech Psych Exam: Mental status NL, Mood NL Other physical findings catheter draining pink urine w/ no clots Vital Signs/I&O Vital Signs Date Time Temp Pulse Resp B/P (MAP) Pulse Ox O2 Delivery O2 Flow Rate FiO2 06/22/19 06:00 98.3 69 16 134/73 (93) 96 Room Air 06/17/19 20:00 2.0 I&O- Last 24 Hours up to 6 AM 06/22/19 05:59 Intake Total 1530 ml Output Total 2825 ml Balance -1295 ml Laboratory Data Labs 24H Laboratory Tests 2 06/21/19 12:45: Urine Color REDH, Urine Appearance HAZY, Urine pH 6.0, Urine Specific [place] 1.005, Urine Protein 2+H, Urine Glucose (UA) NEGATIVE, Urine Ketones NEGATIVE, Urine Blood 3+H, Urine Nitrite NEGATIVE, Urine Bilirubin NEGATIVE, Urine Urobilinogen 0.2, Urine Leukocyte Esterase 1+H, Urine WBC (Auto) 73H, Urine RBC (Auto) TNTCH, Urine Hyaline Casts (Auto) 0, Urine Bacteria (Auto) 2+H, Urine Squamous Epithelial Cells 0, Urine Mucus (Auto) SMALL, Urine Sperm (Auto) 06/22/19 05:39: Immature Granulocyte % (Auto) 0.8, Neutrophils (%) (Auto) 60.3, Lymphocytes (%) (Auto) 20.2L, Monocytes (%) (Auto) 14.1H, Eosinophils (%) (Auto) 4.4H, Basophils (%) (Auto) 0.2, Neutrophils # (Auto) 3.0, Lymphocytes # (Auto) 1.0L, Monocytes # (Auto) 0.7, Eosinophils # (Auto) 0.2, Basophils # (Auto) 0.0, Nucleated Red Blood Cells % (auto) 0.0, Anion Gap 4L, Glomerular Filtration Rate > 60.0, Calcium Level 8.4L, Magnesium Level 2.1 CBC/BMP Laboratory Tests 06/22/19 05:39 Microbiology Microbiology 06/21/19 Urine Culture, Received Pending Assessment/Plan Date Seen The patient was seen on 06/22/19. Patient Summary This is a 78 y/o M admitted for gross hematuria and clot retention, POD 6 s/p cysto, clot evacuation, and fulguration. His pain is much better today. Plan/VTE VTE Prophylaxis Ordered?: Yes (Xarelto) VTE Exclusion Mechanical Proph: N/A:VTE Prophy Ordered VTE Exclusion Pharmacological: N/A:VTE Prophy Ordered Plan/Urinary Catheter Reason for insertion/continuin: Acute obstruct/retention Plan - catheter to gravity drainage - continue flomax - ok for discharge home w/ the catheter - would give him a dose of levaquin for possible UTI prior to discharge - I will f/u on urine culture and prescribe additional levaquin if needed - will arrange f/u w/ me in approximately 2 wks for a voiding trial and to discuss surgical options for BPH if he fails another voiding trial Anticipated Discharge: Home THERESE TAYLOR MD Jun 22, 2019 08:19
--- NOTE | 2019-06-22 08:53 | IPNPDOC ---
Subjective Date Seen The patient was seen on 06/22/19. Subjective Chief Complaint/HPI Bryant this morning is without new concerns. Dr Childress has been in to see him today, he has no concerns and no additional recommendations. General: Denies: Fatigue Constitutional: Denies: Chills, Fever Pulmonary: Denies: Dyspnea, Cough Cardiovascular: Denies: Chest Pain, Palpitations Gastrointestinal: Denies: Nausea, Vomiting Neurological: Denies: Weakness Psych: Reports: Mood Normal Objective Physical Examination General Exam: Positive: Alert, Cooperative, No Acute Distress (moving about the bathroom) Eye Exam: Negative: Sclera icteric Neck Exam: Positive: Supple; Negative: Lymphadenopathy Chest Exam: Positive: Clear to auscultation, Normal air movement Abdomen Exam: Positive: Normal bowel sounds, Soft; Negative: Tenderness, Hepatospenomegaly Extremity Exam: Negative: Edema Psych Exam: Positive: Mental status NL, Mood NL, Oriented x 3 Other physical findings Cee back with burgandy discoloration Assessment /Plan Problems (1) BPH loc w urin obs/LUTS Status: Acute Problem Specific Plan: Consult Specialist Problem Text: 06/22 No additional plans inpt, appears to have blood in the cee this morning, await further monitoring of his Hgb. 06/21 - Dr. Childress was clear with the patient and family - he will need to have the catheter in for at least 2 weeks while he gets back on his Flomax and any injury that may have happened to his prostate heals. At that point they will do another trial of void. Dr. Childress is skeptical that this will work, but both he and the patient/family would like to try. If it does not work then he will need to be scheduled for a TURP. 06/20 - he went into retention again last night and the Cee had to be reinserted. There is currently no hematuria noted in the Cee tube. At this point the intention will be to discharge him with a Cee in place and follow up with urology. Dr. Childress feels that he will likely need a TURP in the relatively near future. 06/19 cee removed this morning, + hematuria since, monitor, this is likely trauma related, will repeat Hgb at 2 pm. If Hgb stable and urine begins to clear up can resume anticoags. (2) Spasmodic bladder Status: Acute Response to Treatment: Uncontrolled Discussed With: Nurse, Top Inventory Control Executive, Patient, Family with Pt Consent Problem Specific Plan: Monitor Clinically, Repeat Labs Problem Text: 06/22 started on Levaquin after UA, UC & S obtained. Await results. 06/21 The plan for his bladder is to check for a UTI. He will also be changed from oxybutynin to B&O suppositories which will likely help more. Once his bladder spasms are effectively controlled he can be discharged. (3) Atrial fibrillation Status: Chronic Problem Text: Pt. denies any chest pain, shortness of breath or palpitations. Rate controlled, in fact he sounds regular today c/w Atenolol and Digoxin for rate control. Xarelto has been resumed. (4) CAD (coronary artery disease) Status: Chronic Problem Text: continue with ASA (5) HTN (hypertension) Status: Chronic Response to Treatment: Stable Problem Text: Continue with home dose Atenolol (6) GERD (gastroesophageal reflux disease) Status: Chronic Response to Treatment: Stable Problem Text: continue with home PPI (7) COPD (chronic obstructive pulmonary disease) Status: Chronic Response to Treatment: Stable Problem Text: oxygen saturation stable. (8) Hyperlipemia Status: Chronic Problem Text: continue simvastatin (9) Migraine Status: Chronic Response to Treatment: Stable Problem Text: denies YARBROUGH (10) Gross hematuria Status: Resolved Problem Text: Most likely secondary to trauma with urinary catheter manipulation. (11) Vomiting Status: Resolved Discussed With: Nurse, Patient Problem Specific Plan: Monitor Clinically Problem Text: This seems to be acute thing in may very likely be related to something simple like a viral gastroenteritis. Could also be related to his urinary retention and the replacement of the Cee, which he is not keen on. At any rate seems to have resolved. We'll monitor. (12) Acute hyponatremia Status: Resolved Discussed With: Patient Problem Specific Plan: Repeat Labs Problem Text: Probably related to the vomiting. We'll monitor carefully to make sure this is not a newly developing trend. (13) Hypomagnesemia Status: Resolved Discussed With: Nurse, Patient Problem Specific Plan: Repeat Labs Problem Text: Probably related to the vomiting. I ordered oral repletion today. We'll monitor his level tomorrow. Plan/VTE VTE Prophylaxis Ordered?: Yes (Xarelto) VTE Exclusion Mechanical Proph: N/A:VTE Prophy Ordered VTE Exclusion Pharmacological: N/A:VTE Prophy Ordered Plan/Urinary Catheter Reason for insertion/continuin: Acute obstruct/retention Plan Anticipated Discharge: Home VS, I&O, 24H, Counts Include [facility] At [facility] Vital Signs/I&O Vital Signs Date Time Temp Pulse Resp B/P (MAP) Pulse Ox O2 Delivery O2 Flow Rate FiO2 06/22/19 06:00 98.3 69 16 134/73 (93) 96 Room Air 06/17/19 20:00 2.0 I&O- Last 24 Hours up to 6 AM 06/22/19 06:00 Intake Total 1530 ml Output Total 3175 ml Balance -1645 ml Laboratory Data 24H LABS Laboratory Tests 2 06/21/19 12:45: Urine Color REDH, Urine Appearance HAZY, Urine pH 6.0, Urine Specific [place] 1.005, Urine Protein 2+H, Urine Glucose (UA) NEGATIVE, Urine Ketones NEGATIVE, Urine Blood 3+H, Urine Nitrite NEGATIVE, Urine Bilirubin NEGATIVE, Urine Urobilinogen 0.2, Urine Leukocyte Esterase 1+H, Urine WBC (Auto) 73H, Urine RBC (Auto) TNTCH, Urine Hyaline Casts (Auto) 0, Urine Bacteria (Auto) 2+H, Urine Squamous Epithelial Cells 0, Urine Mucus (Auto) SMALL, Urine Sperm (Auto) 06/22/19 05:39: Immature Granulocyte % (Auto) 0.8, Neutrophils (%) (Auto) 60.3, Lymphocytes (%) (Auto) 20.2L, Monocytes (%) (Auto) 14.1H, Eosinophils (%) (Auto) 4.4H, Basophils (%) (Auto) 0.2, Neutrophils # (Auto) 3.0, Lymphocytes # (Auto) 1.0L, Monocytes # (Auto) 0.7, Eosinophils # (Auto) 0.2, Basophils # (Auto) 0.0, Nucleated Red Blood Cells % (auto) 0.0, Anion Gap 4L, Glomerular Filtration Rate > 60.0, Calcium Level 8.4L, Magnesium Level 2.1 CBC/BMP Laboratory Tests 06/22/19 05:39 Microbiology Microbiology 06/21/19 Urine Culture, Received Pending ANNITA SONG PA-C Jun 22, 2019 08:53
[2019-06-22 09:06] VITALS: BP 134/73
[2019-06-22] MEDS: atenoloL 50 MG TAB PO SCH (09:06)
[2019-06-22] MEDS: MULTIVITAMINS/MINERALS THERAP 1 TAB PO SCH (09:06)
[2019-06-22] MEDS: oxyBUTYnin 5 MG TAB PO SCH ×3 (09:06→17:18)
[2019-06-22] MEDS: ASPIRIN 81 MG ENTERIC TAB PO SCH (09:06)
[2019-06-22] MEDS: OMEPRAZOLE 20 MG CAP PO SCH (09:06)
[2019-06-22] MEDS: PREDNISOLONE 1% OS SCH (09:07)
[2019-06-22] MEDS: DIGOXIN 0.25 MG TAB PO SCH (09:07)
[2019-06-22] MEDS: OPTH OS SCH ×4 (09:07→17:18)
[2019-06-22] MEDS: KETOROLAC 0.4% OS SCH ×3 (09:07→17:18)
[2019-06-22 14:00] VITALS: BP 126/63
[2019-06-22] MEDS: RIVAROXABAN 20 MG TAB (XARELTO) PO SCH (17:18)
--- NOTE | 2019-06-23 08:53 | DSES ---
DATE OF ADMISSION: 06/16/2019 DATE OF DISCHARGE: 06/22/2019 DISCHARGE DIAGNOSES: 1. Gross hematuria. 2. Acute blood loss anemia requiring transfusion secondary to 1, status post 1 unit of packed red blood cells. 3. Benign prostatic hypertrophy (BPH) with lower urinary tract symptoms (LUTS). 4. Coronary artery disease (CAD) with history of anterior wall myocardial infarction (OR). 5. Atrial fibrillation, paroxysmal. 6. Asthma, mild persistent. 7. Microscopic colitis. 8. Psoriasis. 9. Impaired fasting glucose. 10. Migraines headaches, classic type. 11. Gastroesophageal reflux disease (GERD). 12. Dyspepsia. 13. Tachy-yahaira syndrome status post pacer. On 06/19 on admission, a trial of void was attempted with Alvarez removed in the morning, but by evening he had retention again so it was replaced. The plan was to attempt one more trial of void in two weeks, on tamsulosin, Avodart and antibiotic. If he fails trial of void at that point, then a transurethral resection of prostate (TURP) will need to be undertaken. While hospitalized, he was placed on levofloxacin 500 mg daily. On discharge it was day 2. Urine culture was still pending from 06/21/2019. On the day of discharge, his hemoglobin was 9.8, his catheter output was without clot, but still slightly red tinged without any evidence of gross hematuria. The patient was very anxious to go home. Initially with the introduction of the Alvarez, the patient had severe bladder spasms and oxybutynin was started, which resolved his spasms such that the day of discharge he was without pain. The patient was discharged to home with followup with primary care physician in 3-5 days. At that point we will have the urine culture back and would repeat hemoglobin. The patient's significant other has a lot of experiencing in changing catheters and catheter care and was obtaining catheter supplies prior to picking him up to go home. The patient was discharged to home on his routine medications. The only thing new was the Levaquin which we sent in for another eight days for ten days total and oxybutynin 5 mg every 6 hours as needed for bladder spasms. Followup with Dr. Steinberg in 3-[address] Childress on 07/06/2019, which the appointment is already scheduled.
== END 2019-06-22 18:00 | disposition home or self-care (01) | DRG 445 ==
LOC: M ED 13:08 → M SDC 15:57 → M PCU 16:22 → M SDC 18:28 → M PCU 18:28 → M MSPAV 06-19 16:25 → M PCU 06-19 16:25 → M MSPAV 06-19 16:25 → M SDC 06-22 18:00 → M MSPAV 06-22 18:00
PROVIDERS: ADMIT Internal Medicine; ATTEND Family Medicine
PROC: 0W3R8ZZ Control Bleeding in Genitourinary Tract, Via Natural or Artificial Opening Endoscopic (ICD-10-PCS; 2019-06-16)
PROC: 0TCB8ZZ Extirpation of Matter from Bladder, Via Natural or Artificial Opening Endoscopic (ICD-10-PCS; principal; 2019-06-16 15:34)
PROC: 30233N1 Transfusion of Nonautologous Red Blood Cells into Peripheral Vein, Percutaneous Approach (ICD-10-PCS; 2019-06-18)
DX: T83.098A Other mechanical complication of other urinary catheter, initial encounter (principal); E87.1 Hypo-osmolality and hyponatremia; I49.5 Sick sinus syndrome; D62 Acute posthemorrhagic anemia; E83.42 Hypomagnesemia; I48.20 Chronic atrial fibrillation, unspecified; J44.9 Chronic obstructive pulmonary disease, unspecified; I10 Essential (primary) hypertension; G43.709 Chronic migraine without aura, not intractable, without status migrainosus; N32.89 Other specified disorders of bladder; R31.0 Gross hematuria; E78.5 Hyperlipidemia, unspecified; Y83.1 Surgical operation with implant of artificial internal device as the cause of abnormal reaction of the patient, or of later complication, without mention of misadventure at the time of the procedure; I25.10 Atherosclerotic heart disease of native coronary artery without angina pectoris; N40.1 Benign prostatic hyperplasia with lower urinary tract symptoms; R33.9 Retention of urine, unspecified; K21.9 Gastro-esophageal reflux disease without esophagitis; Z79.01 Long term (current) use of anticoagulants; Z95.0 Presence of cardiac pacemaker; Z95.5 Presence of coronary angioplasty implant and graft; Z79.82 Long term (current) use of aspirin; Z79.899 Other long term (current) drug therapy; Z88.0 Allergy status to penicillin; Z90.49 Acquired absence of other specified parts of digestive tract; Z85.828 Personal history of other malignant neoplasm of skin; R10.13 Epigastric pain; J45.30 Mild persistent asthma, uncomplicated; K52.839 Microscopic colitis, unspecified; L40.9 Psoriasis, unspecified; R73.01 Impaired fasting glucose

== ENCOUNTER → 2019-07-03 | Outpatient (CLI) | payer BC, OTHER, MEDICARE ==
[~2019-07-03] MED LIST changes: +DIGO0.127 PO; +KETO0.3S OU; +OFLO3OPSO OU; +PREDOPD OS; +TAMS1CAP17 PO; +TYLE650T38 PO; +VENTAER INH
[2019-07-03 14:39] LABS: ALBUMIN 3.1 GM/DL (3.2-5.2); ALT/SGPT 53 U/L (12-78); BILIRUBIN,TOTAL 0.5 MG/DL (0.2-1.0); BLOOD UREA NITROGEN 15 MG/DL (7-18); CALCIUM LEVEL 8.3 MG/DL (8.8-10.2); CARBON DIOXIDE LEVEL 29 MEQ/L (21-32); CHLORIDE LEVEL 107 MEQ/L (98-107); CK-MB VALUE MASS < 1.0 NG/ML (<3.6); CPK CREATINE PHOSPHOKINASE 38 U/L (39-308); CREATININE FOR GFR 1.16 MG/DL (0.70-1.30); GLOMERULAR FILTRATION RATE > 60.0 (>42); GLUCOSE, FASTING 110 MG/DL (70-100); MB/CK RELATIVE INDEX 2.63 (< OR =4); NT-PRO BNP 3812 PG/ML (<450); POTASSIUM SERUM 4.9 MEQ/L (3.5-5.1); SODIUM LEVEL 140 MEQ/L (136-145); TOTAL PROTEIN 5.8 GM/DL (6.4-8.2); TROPONIN I < 0.02 NG/ML (< 0.10)
--- NOTE | 2019-07-03 14:52 | REPPI ---
Clinical: Shortness of breath. Technique: PA and lateral. Comparison: 11/27/2018. Findings: Mediastinum and cardiac silhouette are within normal limits and stable. Pacemaker again noted. Lung lindquist demonstrate chronic interstitial changes. No focal consolidation, effusion, or pneumothorax. Skeletal structures are intact. Impression: No focal consolidation. No effusion. Electronically Signed by Edin Bonilla MD 07/03/2019 12:26 P
== END ==
LOC: M PLAIMG 12:09
PROVIDERS: ATTEND Physician Assistant Medical
DX: R06.02 Shortness of breath (principal)

== ENCOUNTER → 2019-07-03 | Outpatient (CLI) | payer BC, OTHER, MEDICARE | LOC: M LAB 09:10 | PROVIDERS: ATTEND Family Medicine | DX: I48.0 Paroxysmal atrial fibrillation (principal); E78.2 Mixed hyperlipidemia ==

== ENCOUNTER → 2019-07-03 | Outpatient (CLI) | payer BC, OTHER, MEDICARE ==
[2019-07-03 10:01] LABS: BASO % 0.2 % (0.0-1.0); EOS # 0.1 10^3/uL (0.0-0.5); HEMATOCRIT 33.8 % (42.0-52.0); HEMOGLOBIN 10.5 g/dl (13.5-17.5); LYMPH # 0.7 10^3/uL (1.5-5.0); LYMPH % 15.9 % (24.0-44.0); MEAN CORPUSCULAR HEMOGLOBIN 29.7 pg (27.0-33.0); MEAN CORPUSCULAR HGB CONC 31.1 g/dl (32.0-36.5); MEAN CORPUSCULAR VOLUME 95.5 fl (80.0-96.0); MONO # 0.8 10^3/uL (0.0-0.8); MONO % 18.2 % (0.0-5.0); NEUTROPHILS # 2.8 10^3/uL (1.5-8.5); NEUTROPHILS % 63.3 % (36.0-66.0); PLATELET COUNT, AUTOMATED 175 10^3/uL (150-450); RED BLOOD COUNT 3.54 10^6/uL (4.30-6.10); WHITE BLOOD COUNT 4.5 10^3/uL (4.0-10.0)
== END ==
LOC: M LAB 09:05
PROVIDERS: ATTEND Family Medicine
DX: I48.0 Paroxysmal atrial fibrillation (principal); Z86.2 Personal history of diseases of the blood and blood-forming organs and certain disorders involving the immune mechanism; E78.2 Mixed hyperlipidemia

== ENCOUNTER → 2019-09-12 | Outpatient (CLI) | payer BC, OTHER, MEDICARE ==
[2019-09-12 09:31] LABS: HEMATOCRIT 41.8 % (42.0-52.0); HEMOGLOBIN 13.2 g/dl (13.5-17.5); MEAN CORPUSCULAR HGB CONC 31.6 g/dl (32.0-36.5); MEAN CORPUSCULAR VOLUME 88.7 fl (80.0-96.0); PLATELET COUNT, AUTOMATED 177 10^3/uL (150-450); RED BLOOD COUNT 4.71 10^6/uL (4.30-6.10); WHITE BLOOD COUNT 5.6 10^3/uL (4.0-10.0)
[2019-09-12 10:04] LABS: ALBUMIN 3.5 GM/DL (3.2-5.2); ALT/SGPT 39 U/L (12-78); BILIRUBIN,TOTAL 0.5 MG/DL (0.2-1.0); BLOOD UREA NITROGEN 21 MG/DL (7-18); CALCIUM LEVEL 8.5 MG/DL (8.8-10.2); CARBON DIOXIDE LEVEL 30 MEQ/L (21-32); CHLORIDE LEVEL 105 MEQ/L (98-107); CHOLESTEROL LEVEL 102 MG/DL (<200); FREE T4 1.14 NG/DL (0.76-1.46); GLOMERULAR FILTRATION RATE > 60.0 (>42); GLUCOSE, FASTING 100 MG/DL (70-100); HDL CHOLESTEROL 25 MG/DL (>40); LDL CHOLESTEROL 56 MG/DL (<100); NON-HDL-C 77 MG/DL; POTASSIUM SERUM 4.8 MEQ/L (3.5-5.1); SODIUM LEVEL 140 MEQ/L (136-145); TOTAL PROTEIN 6.7 GM/DL (6.4-8.2); TRIGLYCERIDES LEVEL 106 MG/DL (<150)
== END ==
LOC: M LAB 08:08
PROVIDERS: ATTEND Family Medicine
DX: I48.0 Paroxysmal atrial fibrillation (principal)

== ENCOUNTER → 2019-10-23 | Outpatient (CLI) | payer MEDICARE, BC, OTHER ==
[2019-10-23 08:03] LABS: HEMATOCRIT 46.7 % (42.0-52.0); HEMOGLOBIN 14.8 g/dl (13.5-17.5); MEAN CORPUSCULAR HEMOGLOBIN 27.3 pg (27.0-33.0); MEAN CORPUSCULAR HGB CONC 31.7 g/dl (32.0-36.5); MEAN CORPUSCULAR VOLUME 86.2 fl (80.0-96.0); PLATELET COUNT, AUTOMATED 156 10^3/uL (150-450); RED BLOOD COUNT 5.42 10^6/uL (4.30-6.10); WHITE BLOOD COUNT 5.7 10^3/uL (4.0-10.0)
[2019-10-23 08:43] LABS: ALBUMIN 3.8 GM/DL (3.2-5.2); ALT/SGPT 34 U/L (12-78); BILIRUBIN,TOTAL 0.6 MG/DL (0.2-1.0); BLOOD UREA NITROGEN 24 MG/DL (7-18); CALCIUM LEVEL 8.9 MG/DL (8.8-10.2); CARBON DIOXIDE LEVEL 30 MEQ/L (21-32); CHLORIDE LEVEL 107 MEQ/L (98-107); CHOLESTEROL LEVEL 109 MG/DL (<200); CHOLESTEROL RISK RATIO 3.892 (<5); CREATININE FOR GFR 1.02 MG/DL (0.70-1.30); FERRITIN 22 NG/ML (26-388); FREE T4 1.12 NG/DL (0.76-1.46); GLOMERULAR FILTRATION RATE > 60.0 (>42); GLUCOSE, FASTING 102 MG/DL (70-100); HDL CHOLESTEROL 28 MG/DL (>40); IRON (FE) 104 UG/DL (65-175); LDL CHOLESTEROL 53 MG/DL (<100); NON-HDL-C 81 MG/DL; PERCENT SATURATION 27.8 % (19.7-50.0); POTASSIUM SERUM 4.5 MEQ/L (3.5-5.1); SODIUM LEVEL 142 MEQ/L (136-145); TOTAL IRON BINDING CAPACITY 374 UG/DL (250-450); TOTAL PROTEIN 6.9 GM/DL (6.4-8.2); TRIGLYCERIDES LEVEL 138 MG/DL (<150)
== END ==
LOC: M LAB 07:23
PROVIDERS: ATTEND Family Medicine
DX: D50.0 Iron deficiency anemia secondary to blood loss (chronic) (principal); I48.0 Paroxysmal atrial fibrillation; E78.2 Mixed hyperlipidemia

== ENCOUNTER → 2019-11-29 | Outpatient (CLI) | payer BC, OTHER, MEDICARE | LOC: M LAB 11:36 | PROVIDERS: ATTEND Nurse Practitioner Women's Health | DX: R97.20 Elevated prostate specific antigen [PSA] (principal) ==

== ENCOUNTER → 2020-02-09 | Outpatient (CLI) | payer BC, OTHER, MEDICARE ==
--- NOTE | 2020-02-09 12:35 | REPVR ---
PROCEDURE INFORMATION: Exam: CT Head Without Contrast Exam date and time: 02/09/2020 12:00 PM Age: 79 years old Clinical indication: Pain; Headache; Additional info: Migraine with aura, intractable, without status TECHNIQUE: Imaging protocol: Computed tomography of the head without contrast. Radiation optimization: All CT scans at this facility use at least one of these dose optimization techniques: automated exposure control; mA and/or kV adjustment per patient size (includes targeted exams where dose is matched to clinical indication); or iterative reconstruction. COMPARISON: CT Head without contrast 12/25/2018 9:40 AM FINDINGS: Brain: There is no acute intracranial hemorrhage, cerebral edema, or midline shift. Minimal chronic microvascular ischemic changes are seen in the cerebral white matter. Age-related cerebral and cerebellar volume loss is present. Cerebral ventricles: No ventriculomegaly. Bones/joints: No acute fracture. Paranasal sinuses: There is no acute sinusitis. Mastoid air cells: The mastoid air cells are clear. Orbits: The included orbital structures are unremarkable. Vasculature: Atherosclerotic calcifications are seen involving the cavernous carotid arteries. Soft tissues: Unremarkable. IMPRESSION: 1. No acute intracranial abnormality. 2. Atrophy and chronic deep white matter ischemic changes. Electronically signed by: Ede Samuel On 02/09/2020 12:35:06 PM
== END ==
LOC: M RAD 11:41
PROVIDERS: ATTEND Psychiatry & Neurology Neurology
DX: G43.119 Migraine with aura, intractable, without status migrainosus (principal); G45.9 Transient cerebral ischemic attack, unspecified

== ENCOUNTER → 2020-03-29 | Outpatient (REF) | payer OTHER, MEDICARE ==
[2020-03-29 17:56] LABS: HEMATOCRIT 48.8 % (42.0-52.0); HEMOGLOBIN 15.3 g/dl (13.5-17.5); MEAN CORPUSCULAR HEMOGLOBIN 29.8 pg (27.0-33.0); MEAN CORPUSCULAR HGB CONC 31.4 g/dl (32.0-36.5); MEAN CORPUSCULAR VOLUME 95.1 fl (80.0-96.0); PLATELET COUNT, AUTOMATED 176 10^3/uL (150-450); RED BLOOD COUNT 5.13 10^6/uL (4.30-6.10); WHITE BLOOD COUNT 6.8 10^3/uL (4.0-10.0)
[2020-03-29 18:11] LABS: ALBUMIN 4.2 GM/DL (3.2-5.2); ALT/SGPT 41 U/L (12-78); BILIRUBIN,TOTAL 0.6 MG/DL (0.2-1.0); BLOOD UREA NITROGEN 23 MG/DL (7-18); CALCIUM LEVEL 9.1 MG/DL (8.8-10.2); CARBON DIOXIDE LEVEL 29 MEQ/L (21-32); CHLORIDE LEVEL 104 MEQ/L (98-107); CHOLESTEROL LEVEL 138 MG/DL (<200); CHOLESTEROL RISK RATIO 3.209 (<5); CREATININE FOR GFR 0.86 MG/DL (0.70-1.30); FERRITIN 22 NG/ML (26-388); FREE T4 0.94 NG/DL (0.76-1.46); GLOMERULAR FILTRATION RATE > 60.0 (>35); GLUCOSE, FASTING 74 MG/DL (70-100); HDL CHOLESTEROL 43 MG/DL (>40); IRON (FE) 68 UG/DL (65-175); LDL CHOLESTEROL 77 MG/DL (<100); NON-HDL-C 95 MG/DL; PERCENT SATURATION 18.5 % (19.7-50.0); POTASSIUM SERUM 5.4 MEQ/L (3.5-5.1); SODIUM LEVEL 137 MEQ/L (136-145); TOTAL IRON BINDING CAPACITY 368 UG/DL (250-450); TOTAL PROTEIN 7.1 GM/DL (6.4-8.2); TRIGLYCERIDES LEVEL 88 MG/DL (<150)
== END ==
LOC: M SFHCADAM 12:13
PROVIDERS: ATTEND Family Medicine
DX: I48.0 Paroxysmal atrial fibrillation (principal); D50.0 Iron deficiency anemia secondary to blood loss (chronic); E78.2 Mixed hyperlipidemia

== ENCOUNTER → 2020-09-14 | Outpatient (REF) | payer OTHER, MEDICARE ==
[~2020-09-14] MED LIST changes: -LISI-542 PO; +LISI-898 PO
[2020-09-14 13:32] LABS: APPEARANCE, URINE CLEAR (CLEAR); BACTERIA, URINE AUTO NEGATIVE (NEGATIVE); BILIRUBIN, URINE AUTO NEGATIVE (NEGATIVE); BLOOD, URINE BLOOD NEGATIVE (NEGATIVE); COLOR, URINE YELLOW (YELLOW); GLUCOSE, URINE (UA) AUTO NEGATIVE (NEGATIVE); KETONE, URINE AUTO NEGATIVE (NEGATIVE); LEUKOCYTE ESTERASE, URINE AUTO NEGATIVE (NEGATIVE); MUCUS, URINE SMALL (NEGATIVE); NITRITE, URINE AUTO NEGATIVE (NEGATIVE); PROTEIN, URINE AUTO NEGATIVE (NEGATIVE); RBC, URINE AUTO 0 /HPF (0-3); SPECIFIC GRAVITY URINE AUTO 1.018 (1.002-1.035); SQUAMOUS EPITHELIAL CELL UR AU 0 /HPF (0-6); UROBILINOGEN, URINE AUTO 0.2 mg/dL (0.0-2.0); WBC, URINE AUTO 1 /HPF (0-3)
== END ==
LOC: M SMT 12:56
PROVIDERS: ATTEND Nurse Practitioner Family
DX: N40.1 Benign prostatic hyperplasia with lower urinary tract symptoms (principal)

== ENCOUNTER → 2020-09-19 | Outpatient (CLI) | payer BC, OTHER, MEDICARE ==
--- NOTE | 2020-09-19 16:31 | REPVR ---
PROCEDURE INFORMATION: Exam: CT Head Without Contrast Exam date and time: 09/19/2020 4:10 PM Age: 79 years old Clinical indication: Pain; Headache; Additional info: Migraine with aura, intractable, without status migrainosus TECHNIQUE: Imaging protocol: Computed tomography of the head without contrast. Axial and coronal reformatted images were created and reviewed. Radiation optimization: All CT scans at this facility use at least one of these dose optimization techniques: automated exposure control; mA and/or kV adjustment per patient size (includes targeted exams where dose is matched to clinical indication); or iterative reconstruction. COMPARISON: CT Head without contrast 02/09/2020 11:58 AM FINDINGS: Brain: Patchy areas of hypoattenuation in the periventricular and subcortical white matter, consistent with chronic small vessel ischemic disease. No CT evidence of acute intracranial hemorrhage or acute territorial infarction. No significant mass effect or midline shift. Basal cisterns patent. Cerebral ventricles: Prominence of the cortical sulci, cisterns and ventricular system, consistent with cerebral and cerebellar volume loss. Bones/joints: No acute osseous abnormality. Paranasal sinuses: Minimal ethmoid and left maxillary sinus mucosal thickening. No fluid levels. Mastoid air cells: Grossly unremarkable. Vasculature: Calcific atherosclerotic disease in the cavernous internal carotid arteries, as well as the vertebro-basilar system. Soft tissues: Grossly unremarkable. IMPRESSION: 1. No CT evidence of acute intracranial pathology. 2. Additional findings, as above. Electronically signed by: Krzysztof Wilkes On 09/19/2020 16:30:49 PM
== END ==
LOC: M RAD 16:04
PROVIDERS: ATTEND Psychiatry & Neurology Neurology
DX: G43.119 Migraine with aura, intractable, without status migrainosus (principal); G45.9 Transient cerebral ischemic attack, unspecified

== ENCOUNTER → 2020-11-28 | Outpatient (CLI) | payer BC, OTHER, MEDICARE ==
[2020-11-29 12:09] LABS: ANTINUCLEAR ANTIBODIES DIRECT Negative (Negative)
== END ==
LOC: M PLALAB 11:05
PROVIDERS: ATTEND Psychiatry & Neurology Neurology
DX: R51.9 Headache, unspecified (principal)

== ENCOUNTER 2021-05-01 06:18 | Emergency (ER) | payer BC, OTHER, MEDICARE ==
[~2021-05-01] VITALS: Ht 182.9 cm; Wt 91.8 kg
[2021-05-01] MEDS ORDERED: LIDOCAINE W/EPINEPHRINE 1% 20ML VIAL SC ONE (06:55)
[2021-05-01 08:00] VITALS: BP 136/89
== END 2021-05-01 08:00 | disposition home or self-care (01) ==
LOC: M ED 06:18
DX: I83.892 Varicose veins of left lower extremity with other complications (principal); I10 Essential (primary) hypertension; J44.9 Chronic obstructive pulmonary disease, unspecified; I25.2 Old myocardial infarction; E78.5 Hyperlipidemia, unspecified; K21.9 Gastro-esophageal reflux disease without esophagitis; Z79.899 Other long term (current) drug therapy; Z79.82 Long term (current) use of aspirin; Z79.01 Long term (current) use of anticoagulants; Z88.0 Allergy status to penicillin; Z95.0 Presence of cardiac pacemaker; Z95.5 Presence of coronary angioplasty implant and graft

== ENCOUNTER → 2021-08-23 | Outpatient (CLI) | payer BC, OTHER, MEDICARE ==
[~2021-08-23] MED LIST changes: -LISI-898 PO; +LISI5TAB11 PO; +OMEP-173 PO; -OMEP-218 PO
[2021-08-23 13:52] LABS: HEMATOCRIT 47.6 % (42.0-52.0); HEMOGLOBIN 15.3 g/dl (13.5-17.5); MEAN CORPUSCULAR HEMOGLOBIN 30.1 pg (27.0-33.0); MEAN CORPUSCULAR HGB CONC 32.1 g/dl (32.0-36.5); MEAN CORPUSCULAR VOLUME 93.5 fl (80.0-96.0); PLATELET COUNT, AUTOMATED 146 10^3/uL (150-450); RED BLOOD COUNT 5.09 10^6/uL (4.30-6.10); WHITE BLOOD COUNT 6.3 10^3/uL (4.0-10.0)
[2021-08-23 14:26] LABS: ALBUMIN 3.8 GM/DL (3.2-5.2); ALT/SGPT 34 U/L (12-78); BILIRUBIN,TOTAL 0.8 MG/DL (0.2-1.0); BLOOD UREA NITROGEN 15 MG/DL (7-18); CALCIUM LEVEL 9.4 MG/DL (8.8-10.2); CARBON DIOXIDE LEVEL 31 MEQ/L (21-32); CHLORIDE LEVEL 106 MEQ/L (98-107); CHOLESTEROL LEVEL 117 MG/DL (<200); CHOLESTEROL RISK RATIO 3.162 (<5); CREATININE FOR GFR 0.77 MG/DL (0.70-1.30); FREE T4 0.82 NG/DL (0.76-1.46); GLOMERULAR FILTRATION RATE > 60.0 (>35); GLUCOSE, FASTING 139 MG/DL (70-100); HDL CHOLESTEROL 37 MG/DL (>40); LDL CHOLESTEROL 57 MG/DL (<100); NON-HDL-C 80 MG/DL; POTASSIUM SERUM 5.3 MEQ/L (3.5-5.1); SODIUM LEVEL 141 MEQ/L (136-145); TOTAL PROTEIN 6.5 GM/DL (6.4-8.2); TRIGLYCERIDES LEVEL 116 MG/DL (<150)
[2021-08-23 15:17] LABS: HEMOGLOBIN A1c 6.1 %
== END ==
LOC: M PLALAB 09:52
PROVIDERS: ATTEND Family Medicine
DX: G43.709 Chronic migraine without aura, not intractable, without status migrainosus (principal)

== ENCOUNTER 2021-11-04 20:16 | Inpatient (IN) | payer BC, OTHER, MEDICARE ==
[~2021-11-04] VITALS: Ht 182.9 cm; Wt 92.8 kg
[2021-11-04 20:42] LABS: BASO % 0.2 % (0.0-1.0); EOS # 0.1 10^3/uL (0.0-0.5); EOS % 1.4 % (0.0-3.0); HEMATOCRIT 44.2 % (42.0-52.0); HEMOGLOBIN 14.6 g/dl (13.5-17.5); LYMPH # 1.6 10^3/uL (1.5-5.0); LYMPH % 17.1 % (24.0-44.0); MEAN CORPUSCULAR HEMOGLOBIN 30.5 pg (27.0-33.0); MEAN CORPUSCULAR VOLUME 92.5 fl (80.0-96.0); MONO # 1.1 10^3/uL (0.0-0.8); MONO % 11.8 % (2.0-8.0); NEUTROPHILS # 6.3 10^3/uL (1.5-8.5); NEUTROPHILS % 69.2 % (36.0-66.0); PLATELET COUNT, AUTOMATED 153 10^3/uL (150-450); RED BLOOD COUNT 4.78 10^6/uL (4.30-6.10); WHITE BLOOD COUNT 9.2 10^3/uL (4.0-10.0)
[2021-11-04] MEDS ORDERED: DUTASTERIDE 0.5 MG CAP (AVODART) PO SCH (21:00)
[2021-11-04] MEDS ORDERED: TAMSULOSIN 0.4 MG CAP PO SCH (21:00)
[2021-11-04] MEDS ORDERED: RIVAROXABAN 20MG TAB (XARELTO) PO SCH (21:00)
[2021-11-04] MEDS ORDERED: SIMVASTATIN 40 MG TAB PO SCH (21:00)
[2021-11-04 21:08] LABS: CK-MB VALUE MASS 2.1 NG/ML (<3.6); MB/CK RELATIVE INDEX 3.28 (< OR =4)
[2021-11-04 21:15] LABS: RSV AMPLIFICATION NEGATIVE (NEGATIVE)
[2021-11-04 21:45] LABS: CALCIUM LEVEL 8.1 MG/DL (8.8-10.2); CREATININE FOR GFR 1.28 MG/DL (0.70-1.30); DIGOXIN LEVEL 0.8 NG/ML (0.5-2.0); FREE T4 0.9 NG/DL (0.76-1.46); GLOMERULAR FILTRATION RATE 57.4 (>35); MAGNESIUM LEVEL 2.1 MG/DL (1.8-2.4); POTASSIUM SERUM 4.3 MEQ/L (3.5-5.1); THYROID STIMULATING HORMONE 1.8 uIU/ML (0.358-3.740)
[2021-11-04] MEDS ORDERED: DIGO0.123 PO (22:12)
[2021-11-04] MEDS ORDERED: MULT-90 PO (22:12)
[2021-11-04] MEDS ORDERED: ATEN25TA PO (22:12)
[2021-11-04] MEDS ORDERED: B-2100TA PO (22:15)
[2021-11-04] MEDS ORDERED: RIME75TA PO (22:15)
[2021-11-04] MEDS ORDERED: MAGN400T2 PO (22:15)
[2021-11-04] MEDS ORDERED: ATOG30TA PO (22:15)
[2021-11-04] MEDS ORDERED: HOME MED LIST COMPLETE! XX SCH (22:20)
[2021-11-04] MEDS ORDERED: ACETAMINOPHEN TAB 650MG DOSE (2X325MG) PO PRN (23:10)
[2021-11-04] MEDS ORDERED: MOM 30ML SUSPENSION UDC PO PRN (23:10)
[2021-11-04] MEDS ORDERED: MAALOX 30 ML SUSP *UDC PO PRN (23:10)
[2021-11-04] MEDS ORDERED: NITROGLYCERIN 0.4 MG SUBL TABLET SL PRN (23:30)
[2021-11-04] MEDS ORDERED: ALBUTEROL 90 MCG/ACT 8GM HFA INHALER INH PRN (23:30)
[2021-11-04] MEDS ORDERED: FEXOFENADINE 60MG TAB PO PRN (23:30)
[2021-11-04] MEDS ORDERED: PILL CUTTER 1 EACH XX PRN (23:55)
[2021-11-05 01:00] VITALS: BP 136/82
[2021-11-05] MEDS: MAGNESIUM OXIDE 400MG TAB (MAG-OX) PO SCH ×2 (01:09→08:44)
[2021-11-05 01:18] LABS: CK-MB VALUE MASS 3.7 NG/ML (<3.6); MB/CK RELATIVE INDEX 2.89 (< OR =4)
[2021-11-05 04:26] VITALS: BP_SYST 116; BP_SYST 131; BP_DIAS 62; BP_DIAS 64; BP_DIAS 71
[2021-11-05 05:45] LABS: BASO % 0.3 % (0.0-1.0); EOS # 0.1 10^3/uL (0.0-0.5); EOS % 1.2 % (0.0-3.0); HEMATOCRIT 42.2 % (42.0-52.0); LYMPH # 1.7 10^3/uL (1.5-5.0); LYMPH % 22.8 % (24.0-44.0); MEAN CORPUSCULAR HEMOGLOBIN 30.8 pg (27.0-33.0); MEAN CORPUSCULAR HGB CONC 33.2 g/dl (32.0-36.5); MEAN CORPUSCULAR VOLUME 92.7 fl (80.0-96.0); MONO # 0.7 10^3/uL (0.0-0.8); MONO % 9.7 % (2.0-8.0); NEUTROPHILS # 4.8 10^3/uL (1.5-8.5); NEUTROPHILS % 65.7 % (36.0-66.0); PLATELET COUNT, AUTOMATED 135 10^3/uL (150-450); RED BLOOD COUNT 4.55 10^6/uL (4.30-6.10); WHITE BLOOD COUNT 7.3 10^3/uL (4.0-10.0)
[2021-11-05 06:12] LABS: ALBUMIN 3.3 GM/DL (3.2-5.2); ALT/SGPT 21 U/L (12-78); BILIRUBIN,TOTAL 0.7 MG/DL (0.2-1.0); BLOOD UREA NITROGEN 14 MG/DL (7-18); CALCIUM LEVEL 8.7 MG/DL (8.8-10.2); CARBON DIOXIDE LEVEL 25 MEQ/L (21-32); CHLORIDE LEVEL 110 MEQ/L (98-107); CK-MB VALUE MASS 3.2 NG/ML (<3.6); CREATININE FOR GFR 0.85 MG/DL (0.70-1.30); GLOMERULAR FILTRATION RATE > 60.0 (>35); GLUCOSE, FASTING 102 MG/DL (70-100); MAGNESIUM LEVEL 2.2 MG/DL (1.8-2.4); MB/CK RELATIVE INDEX 4.44 (< OR =4); SODIUM LEVEL 142 MEQ/L (136-145)
[2021-11-05 07:35] VITALS: BP 130/78
[2021-11-05] MEDS ORDERED: BUDESONIDE 180MCG INHALER (PULMICORT FLEXHALER) INH SCH (08:00)
[2021-11-05 08:43] VITALS: BP 130/78
[2021-11-05] MEDS ORDERED: OMEPRAZOLE 20MG CAP PO SCH (09:00)
[2021-11-05] MEDS ORDERED: DIGOXIN 0.125 MG TAB PO SCH (09:00)
[2021-11-05] MEDS ORDERED: ASPIRIN 81MG ENTERIC TABLET PO SCH (09:00)
[2021-11-05] MEDS ORDERED: atenoloL 25 MG TAB PO SCH (09:00)
== END 2021-11-05 11:12 | disposition home or self-care (01) | DRG 204 ==
LOC: M ED 20:16 → M ED INP 23:10 → ENRESERV 11-05 00:03 → M PCU 11-05 00:58
PROVIDERS: ADMIT Family Medicine; ATTEND General Practice
DX: R55 Syncope and collapse (principal); I25.10 Atherosclerotic heart disease of native coronary artery without angina pectoris; I48.91 Unspecified atrial fibrillation; I49.5 Sick sinus syndrome; J45.909 Unspecified asthma, uncomplicated; N40.0 Benign prostatic hyperplasia without lower urinary tract symptoms; L40.9 Psoriasis, unspecified; R73.03 Prediabetes; E88.01 Alpha-1-antitrypsin deficiency; G43.909 Migraine, unspecified, not intractable, without status migrainosus; K52.839 Microscopic colitis, unspecified; K21.9 Gastro-esophageal reflux disease without esophagitis; E78.5 Hyperlipidemia, unspecified; Z95.0 Presence of cardiac pacemaker; Z95.5 Presence of coronary angioplasty implant and graft; Z85.828 Personal history of other malignant neoplasm of skin; Z90.49 Acquired absence of other specified parts of digestive tract; Z87.891 Personal history of nicotine dependence; Z79.01 Long term (current) use of anticoagulants; Z88.0 Allergy status to penicillin; Z79.899 Other long term (current) drug therapy; Z79.82 Long term (current) use of aspirin

== ENCOUNTER → 2021-11-29 | Outpatient (REF) | payer OTHER, MEDICARE ==
[~2021-11-29] MED LIST changes: +ATEN25TA PO; +ATOG30TA PO; +B-2100TA PO; +DIGO0.123 PO; +MAGN400T2 PO; +MULT-90 PO; +RIME75TA PO
== END ==
LOC: M SFHCADAM 12:01
PROVIDERS: ATTEND Nurse Practitioner Family
DX: L57.0 Actinic keratosis (principal); D49.2 Neoplasm of unspecified behavior of bone, soft tissue, and skin

== ENCOUNTER → 2021-12-04 | Outpatient (CLI) | payer BC, OTHER, MEDICARE | LOC: M RAD 14:01 | PROVIDERS: ATTEND Physician Assistant | DX: R55 Syncope and collapse (principal) ==

== ENCOUNTER → 2022-03-22 | Outpatient (CLI) | payer BC, OTHER, MEDICARE ==
[~2022-03-22] MED LIST changes: +CLOP75TA99 PO; -PLAV1TAB2 PO
== END ==
LOC: M PLALAB 06:59
PROVIDERS: ATTEND Nurse Practitioner Women's Health
DX: R97.20 Elevated prostate specific antigen [PSA] (principal)

== ENCOUNTER → 2022-03-22 | Outpatient (CLI) | payer BC, OTHER, MEDICARE ==
[2022-03-22 10:59] LABS: HEMATOCRIT 49.1 % (42.0-52.0); HEMOGLOBIN 15.1 g/dl (13.5-17.5); MEAN CORPUSCULAR HEMOGLOBIN 29.5 pg (27.0-33.0); MEAN CORPUSCULAR HGB CONC 30.8 g/dl (32.0-36.5); MEAN CORPUSCULAR VOLUME 95.9 fl (80.0-96.0); PLATELET COUNT, AUTOMATED 160 10^3/uL (150-450); RED BLOOD COUNT 5.12 10^6/uL (4.30-6.10); WHITE BLOOD COUNT 6.4 10^3/uL (4.0-10.0)
[2022-03-22 11:37] LABS: BLOOD UREA NITROGEN 17 MG/DL (7-18); CARBON DIOXIDE LEVEL 31 MEQ/L (21-32); CHLORIDE LEVEL 104 MEQ/L (98-107); GLOMERULAR FILTRATION RATE > 60.0 (>35); GLUCOSE, FASTING 114 MG/DL (70-100); POTASSIUM SERUM 5.2 MEQ/L (3.5-5.1); SODIUM LEVEL 138 MEQ/L (136-145)
[2022-03-22 12:15] LABS: HEMOGLOBIN A1c 6.2 %
== END ==
LOC: M PLALAB 06:56
PROVIDERS: ATTEND Family Medicine
DX: E74.9 Disorder of carbohydrate metabolism, unspecified (principal); D50.0 Iron deficiency anemia secondary to blood loss (chronic)

== ENCOUNTER 2022-05-18 03:43 | Inpatient (IN) | payer BC, OTHER, MEDICARE ==
[~2022-05-18] VITALS: Ht 185.4 cm; Wt 95.1 kg
[2022-05-18 04:17] LABS: BASO % 0.2 % (0.0-1.0); EOS # 0.1 10^3/uL (0.0-0.5); EOS % 1.4 % (0.0-3.0); HEMATOCRIT 40.5 % (42.0-52.0); HEMOGLOBIN 12.8 g/dl (13.5-17.5); LYMPH # 1.4 10^3/uL (1.5-5.0); LYMPH % 15.6 % (24.0-44.0); MEAN CORPUSCULAR HGB CONC 31.6 g/dl (32.0-36.5); MEAN CORPUSCULAR VOLUME 94.8 fl (80.0-96.0); MONO # 0.8 10^3/uL (0.0-0.8); MONO % 8.4 % (2.0-8.0); NEUTROPHILS # 6.8 10^3/uL (1.5-8.5); NEUTROPHILS % 74.1 % (36.0-66.0); PLATELET COUNT, AUTOMATED 156 10^3/uL (150-450); RED BLOOD COUNT 4.27 10^6/uL (4.30-6.10); WHITE BLOOD COUNT 9.1 10^3/uL (4.0-10.0)
[2022-05-18 04:27] LABS: INR 2.41; PROTHROMBIN TIME 26.6 SECONDS (12.5-14.5)
[2022-05-18 04:40] LABS: CK-MB VALUE MASS 1.3 NG/ML (<3.6); LIPASE 23 U/L (12-53)
[2022-05-18 04:42] LABS: AMYLASE 70 U/L (30-118); BILIRUBIN,DIRECT 0.3 MG/DL (<0.4)
[2022-05-18 04:43] LABS: ALBUMIN 3.4 G/DL (3.2-5.2); ALKALINE PHOSPHATASE 77 U/L (46-116); ALT/SGPT 22 U/L (7.0-40); AST/SGOT 28 U/L (<34); BILIRUBIN,TOTAL 0.7 MG/DL (0.3-1.2); BLOOD UREA NITROGEN 18 MG/DL (9-23); CALCIUM LEVEL 8.5 MG/DL (8.3-10.6); CARBON DIOXIDE LEVEL 25 MMOL/L (20-31); CHLORIDE LEVEL 104 MMOL/L (98-107); CREATININE FOR GFR 0.69 MG/DL (0.70-1.30); GLOMERULAR FILTRATION RATE > 60.0 (>35); GLUCOSE, FASTING 149 MG/DL (74-106); POTASSIUM SERUM 5.2 MMOL/L (3.5-5.1); SODIUM LEVEL 137 MMOL/L (136-145); TOTAL PROTEIN 5.6 G/DL (5.7-8.2)
[2022-05-18 04:47] LABS: CPK CREATINE PHOSPHOKINASE 51 U/L (46-171); MB/CK RELATIVE INDEX 2.54 (< OR =4)
[2022-05-18 04:48] LABS: RSV AMPLIFICATION NEGATIVE (NEGATIVE)
[2022-05-18] MEDS ORDERED: ISOVUE-370 76% 100ML VIAL As Ordered ONE (05:37)
[2022-05-18] MEDS ORDERED: ACETAMINOPHEN 1000MG 100ML IV BAG IV ONE (07:00)
[2022-05-18 08:25] LABS: HEMATOCRIT 36.5 % (42.0-52.0); HEMOGLOBIN 11.8 g/dl (13.5-17.5)
[2022-05-18] MEDS ORDERED: BUDE180INH INH (08:35)
[2022-05-18] MEDS ORDERED: HOME MED LIST COMPLETE! XX SCH (08:40)
[2022-05-18] MEDS: ASPIRIN 81MG ENTERIC TABLET PO SCH (09:00)
[2022-05-18] MEDS ORDERED: ALBUTEROL 90 MCG/ACT 8GM HFA INHALER INH PRN (10:20)
[2022-05-18] MEDS ORDERED: RIMEGEPANT 75 MG PO PRN (12:00)
[2022-05-18] MEDS: D5W/LR 1,000 ML IV SCH ×2 (12:04→12:26)
[2022-05-18 15:20] VITALS: BP 137/65
[2022-05-18 15:30] VITALS: BP_SYST 119; BP_SYST 128; BP_SYST 135; BP_DIAS 52; BP_DIAS 63; BP_DIAS 65
[2022-05-18 15:36] LABS: HEMOGLOBIN 10.7 g/dl (13.5-17.5)
[2022-05-18 20:44] VITALS: BP 129/59
[2022-05-18] MEDS: DUTASTERIDE 0.5 MG CAP (AVODART) PO SCH (20:51)
[2022-05-18] MEDS: TAMSULOSIN 0.4 MG CAP PO SCH (20:51)
[2022-05-18] MEDS: BUDESONIDE 180MCG INHALER (PULMICORT FLEXHALER) INH SCH (21:02)
[2022-05-18 21:41] LABS: HEMATOCRIT 31.2 % (42.0-52.0); HEMOGLOBIN 10.2 g/dl (13.5-17.5)
[2022-05-19 00:52] VITALS: BP 118/57
[2022-05-19 03:13] LABS: HEMATOCRIT 31.8 % (42.0-52.0); HEMOGLOBIN 10.3 g/dl (13.5-17.5)
[2022-05-19 04:18] VITALS: BP 125/68
[2022-05-19 05:24] LABS: HEMATOCRIT 31.1 % (42.0-52.0); HEMOGLOBIN 9.9 g/dl (13.5-17.5); MEAN CORPUSCULAR HGB CONC 31.8 g/dl (32.0-36.5); MEAN CORPUSCULAR VOLUME 94.2 fl (80.0-96.0); PLATELET COUNT, AUTOMATED 131 10^3/uL (150-450); WHITE BLOOD COUNT 6.3 10^3/uL (4.0-10.0)
[2022-05-19 05:36] LABS: INR 1.5; PROTHROMBIN TIME 18.4 SECONDS (12.5-14.5)
[2022-05-19 05:51] LABS: ALKALINE PHOSPHATASE 59 U/L (46-116); ALT/SGPT 13 U/L (7.0-40); AST/SGOT 20 U/L (<34); BILIRUBIN,TOTAL 0.9 MG/DL (0.3-1.2); BLOOD UREA NITROGEN 15 MG/DL (9-23); CALCIUM LEVEL 8.4 MG/DL (8.3-10.6); CARBON DIOXIDE LEVEL 29 MMOL/L (20-31); CHLORIDE LEVEL 105 MMOL/L (98-107); GLOMERULAR FILTRATION RATE > 60.0 (>35); GLUCOSE, FASTING 98 MG/DL (74-106); SODIUM LEVEL 140 MMOL/L (136-145); TOTAL PROTEIN 4.9 G/DL (5.7-8.2)
[2022-05-19] MEDS ORDERED: DEXTROSE IV SCH (07:20)
[2022-05-19] MEDS ORDERED: LACTATED RINGERS IV SCH (07:20)
[2022-05-19 07:46] VITALS: BP 139/95
[2022-05-19] MEDS: BUDESONIDE 180MCG INHALER (PULMICORT FLEXHALER) INH SCH (07:55)
[2022-05-19] MEDS: ASPIRIN 81MG ENTERIC TABLET PO SCH (08:07)
[2022-05-19] MEDS ORDERED: ATOGEPANT 30 MG PO SCH (09:00)
[2022-05-19 09:14] LABS: HEMOGLOBIN 10.5 g/dl (13.5-17.5)
[2022-05-19 12:00] VITALS: BP 126/61
[2022-05-19] MEDS: D5W/LR 1,000 ML IV SCH ×2 (15:58→23:53)
[2022-05-19 18:00] LABS: HEMATOCRIT 32.7 % (42.0-52.0); HEMOGLOBIN 10.3 g/dl (13.5-17.5)
[2022-05-19 20:37] VITALS: BP 131/60
[2022-05-19] MEDS: DUTASTERIDE 0.5 MG CAP (AVODART) PO SCH (20:50)
[2022-05-19] MEDS: TAMSULOSIN 0.4 MG CAP PO SCH (20:50)
[2022-05-20 01:58] LABS: HEMATOCRIT 29.7 % (42.0-52.0); HEMOGLOBIN 9.6 g/dl (13.5-17.5)
[2022-05-20 04:44] VITALS: BP 123/73
[2022-05-20 06:53] LABS: HEMATOCRIT 30.1 % (42.0-52.0); HEMOGLOBIN 9.6 g/dl (13.5-17.5); MEAN CORPUSCULAR HEMOGLOBIN 30.2 pg (27.0-33.0); MEAN CORPUSCULAR HGB CONC 31.9 g/dl (32.0-36.5); MEAN CORPUSCULAR VOLUME 94.7 fl (80.0-96.0); PLATELET COUNT, AUTOMATED 129 10^3/uL (150-450); RED BLOOD COUNT 3.18 10^6/uL (4.30-6.10); WHITE BLOOD COUNT 5.4 10^3/uL (4.0-10.0)
[2022-05-20 07:09] LABS: INR 1.24; PROTHROMBIN TIME 15.9 SECONDS (12.5-14.5)
[2022-05-20] MEDS: BUDESONIDE 180MCG INHALER (PULMICORT FLEXHALER) INH SCH ×3 (07:14→20:00)
[2022-05-20 07:16] LABS: FERRITIN 10.2 NG/ML (10.5-307.3); IRON (FE) 38 UG/DL (65-175)
[2022-05-20 07:17] LABS: PERCENT SATURATION 14.1 % (19.7-50.0); TOTAL IRON BINDING CAPACITY 269 UG/DL (250-425)
[2022-05-20 07:19] LABS: FOLATE > 24.00 NG/ML (>5.4); VITAMIN B12 LEVEL 605 PG/ML (211-911)
[2022-05-20 07:28] LABS: ALBUMIN 2.7 G/DL (3.2-5.2); ALKALINE PHOSPHATASE 56 U/L (46-116); ALT/SGPT 15 U/L (7.0-40); AST/SGOT 19 U/L (<34); BILIRUBIN,TOTAL 0.6 MG/DL (0.3-1.2); BLOOD UREA NITROGEN 10 MG/DL (9-23); CARBON DIOXIDE LEVEL 28 MMOL/L (20-31); CHLORIDE LEVEL 109 MMOL/L (98-107); CREATININE FOR GFR 0.65 MG/DL (0.70-1.30); GLOMERULAR FILTRATION RATE > 60.0 (>35); GLUCOSE, FASTING 130 MG/DL (74-106); POTASSIUM SERUM 3.9 MMOL/L (3.5-5.1); SODIUM LEVEL 142 MMOL/L (136-145); TOTAL PROTEIN 4.6 G/DL (5.7-8.2)
[2022-05-20 07:55] VITALS: BP 130/72
[2022-05-20] MEDS: ASPIRIN 81MG ENTERIC TABLET PO SCH (08:25)
[2022-05-20] MEDS: D5W/LR 1,000 ML IV SCH ×3 (08:25→22:53)
[2022-05-20] MEDS ORDERED: FEXOFENADINE 60MG TAB PO PRN (10:00)
[2022-05-20] MEDS ORDERED: FERRIC CARBOXYMALTOSE INJ 1,000 MG, VIAL MATE ADAPTER 1 EACH in NS 250 ML IV ONE (10:00)
[2022-05-20] MEDS ORDERED: NITROGLYCERIN 0.4MG SUBL TABLET SL PRN (10:00)
[2022-05-20] MEDS ORDERED: FERRIC CARBOXYMALTOSE INJ 1,000 MG in NS 250 ML IV ONE (10:00)
[2022-05-20 10:55] VITALS: BP 167/91
[2022-05-20] MEDS: MAGNESIUM OXIDE 400MG TAB (MAG-OX) PO SCH ×2 (12:21→22:04)
[2022-05-20] MEDS: OMEPRAZOLE 20MG CAP PO SCH (12:21)
[2022-05-20 16:00] VITALS: BP 153/79
[2022-05-20] MEDS ORDERED: GOLYTELY SOLN 4000 ML BTL PO ONE (18:00)
[2022-05-20 18:33] LABS: HEMATOCRIT 35.3 % (42.0-52.0); HEMOGLOBIN 11.2 g/dl (13.5-17.5)
[2022-05-20 20:00] VITALS: BP 130/75
[2022-05-20] MEDS ORDERED: SIMVASTATIN 40 MG TAB PO SCH (21:00)
[2022-05-20] MEDS: TAMSULOSIN 0.4 MG CAP PO SCH (22:04)
[2022-05-20] MEDS: DUTASTERIDE 0.5 MG CAP (AVODART) PO SCH (22:04)
[2022-05-21 04:00] VITALS: BP 125/57
[2022-05-21 05:37] LABS: HEMATOCRIT 28.5 % (42.0-52.0); HEMOGLOBIN 9.4 g/dl (13.5-17.5); MEAN CORPUSCULAR HEMOGLOBIN 30.8 pg (27.0-33.0); MEAN CORPUSCULAR VOLUME 93.4 fl (80.0-96.0); PLATELET COUNT, AUTOMATED 123 10^3/uL (150-450); RED BLOOD COUNT 3.05 10^6/uL (4.30-6.10); WHITE BLOOD COUNT 4.8 10^3/uL (4.0-10.0)
[2022-05-21 05:52] LABS: INR 1.23; PROTHROMBIN TIME 15.8 SECONDS (12.5-14.5)
[2022-05-21 06:07] LABS: ALBUMIN 2.7 G/DL (3.2-5.2); ALKALINE PHOSPHATASE 57 U/L (46-116); ALT/SGPT 15 U/L (7.0-40); AST/SGOT 21 U/L (<34); BILIRUBIN,TOTAL 0.5 MG/DL (0.3-1.2); BLOOD UREA NITROGEN 6 MG/DL (9-23); CALCIUM LEVEL 8.2 MG/DL (8.3-10.6); CARBON DIOXIDE LEVEL 28 MMOL/L (20-31); CHLORIDE LEVEL 108 MMOL/L (98-107); CREATININE FOR GFR 0.63 MG/DL (0.70-1.30); GLOMERULAR FILTRATION RATE > 60.0 (>35); GLUCOSE, FASTING 128 MG/DL (74-106); POTASSIUM SERUM 3.7 MMOL/L (3.5-5.1); SODIUM LEVEL 143 MMOL/L (136-145); TOTAL PROTEIN 4.5 G/DL (5.7-8.2)
[2022-05-21] MEDS: D5W/LR 1,000 ML IV SCH (06:39)
[2022-05-21] MEDS: BUDESONIDE 180MCG INHALER (PULMICORT FLEXHALER) INH SCH (07:48)
[2022-05-21 08:00] VITALS: BP 122/77
[2022-05-21] MEDS: MAGNESIUM OXIDE 400MG TAB (MAG-OX) PO SCH (12:36)
[2022-05-21] MEDS: ASPIRIN 81MG ENTERIC TABLET PO SCH (12:36)
[2022-05-21] MEDS: OMEPRAZOLE 20MG CAP PO SCH (12:36)
[2022-05-21] MEDS ORDERED: SENN-80 PO (12:45)
[2022-05-21] MEDS ORDERED: MIRA3350 PO (12:45)
== END 2022-05-21 15:28 | disposition home or self-care (01) | DRG 244 ==
LOC: M ED 03:43 → EDBD 03:43 → M ED INP 10:10 → ENRESERV 14:28 → M PCU 15:33
PROVIDERS: ADMIT Student in an Organized Health Care Education/Training Program; ATTEND Student in an Organized Health Care Education/Training Program
DX: K57.93 Diverticulitis of intestine, part unspecified, without perforation or abscess with bleeding (principal); I49.5 Sick sinus syndrome; I48.91 Unspecified atrial fibrillation; J44.9 Chronic obstructive pulmonary disease, unspecified; E87.5 Hyperkalemia; I25.10 Atherosclerotic heart disease of native coronary artery without angina pectoris; G43.909 Migraine, unspecified, not intractable, without status migrainosus; E78.5 Hyperlipidemia, unspecified; Z95.0 Presence of cardiac pacemaker; N40.0 Benign prostatic hyperplasia without lower urinary tract symptoms; L40.9 Psoriasis, unspecified; R73.03 Prediabetes; K21.9 Gastro-esophageal reflux disease without esophagitis; Z90.49 Acquired absence of other specified parts of digestive tract; Z85.828 Personal history of other malignant neoplasm of skin; Z87.891 Personal history of nicotine dependence; Z79.82 Long term (current) use of aspirin; Z79.02 Long term (current) use of antithrombotics/antiplatelets; Z79.899 Other long term (current) drug therapy; Z88.0 Allergy status to penicillin; Z20.822 Contact with and (suspected) exposure to COVID-19

== ENCOUNTER 2022-05-24 11:18 | Emergency (ER) | payer BC, OTHER, MEDICARE ==
[~2022-05-24] VITALS: Ht 185.4 cm; Wt 98.1 kg
[~2022-05-24 11:18] MED LIST changes: +MIRA3350 PO; +SENN-80 PO
[2022-05-24 11:19] VITALS: BP 154/71
== END 2022-05-24 15:30 | disposition home or self-care (01) ==
LOC: M ED 11:18
DX: I83.813 Varicose veins of bilateral lower extremities with pain (principal); E11.9 Type 2 diabetes mellitus without complications; I10 Essential (primary) hypertension; E78.00 Pure hypercholesterolemia, unspecified; J44.9 Chronic obstructive pulmonary disease, unspecified; G43.909 Migraine, unspecified, not intractable, without status migrainosus; Z79.82 Long term (current) use of aspirin; Z79.899 Other long term (current) drug therapy; Z88.0 Allergy status to penicillin

== ENCOUNTER → 2022-05-25 | Outpatient (REF) | payer OTHER, MEDICARE ==
[2022-05-25 16:30] LABS: BASO % 0.4 % (0.0-1.0); EOS # 0.1 10^3/uL (0.0-0.5); EOS % 1.8 % (0.0-3.0); HEMATOCRIT 34.9 % (42.0-52.0); HEMOGLOBIN 10.8 g/dl (13.5-17.5); LYMPH # 1.4 10^3/uL (1.5-5.0); LYMPH % 18.3 % (24.0-44.0); MEAN CORPUSCULAR HEMOGLOBIN 30.1 pg (27.0-33.0); MEAN CORPUSCULAR HGB CONC 30.9 g/dl (32.0-36.5); MEAN CORPUSCULAR VOLUME 97.2 fl (80.0-96.0); MONO # 0.9 10^3/uL (0.0-0.8); MONO % 11.7 % (2.0-8.0); NEUTROPHILS % 67.3 % (36.0-66.0); PLATELET COUNT, AUTOMATED 171 10^3/uL (150-450); RED BLOOD COUNT 3.59 10^6/uL (4.30-6.10); WHITE BLOOD COUNT 7.4 10^3/uL (4.0-10.0)
[2022-05-25 16:58] LABS: BLOOD UREA NITROGEN 15 MG/DL (9-23); CALCIUM LEVEL 8.5 MG/DL (8.3-10.6); CARBON DIOXIDE LEVEL 27 MMOL/L (20-31); CHLORIDE LEVEL 106 MMOL/L (98-107); CREATININE FOR GFR 0.74 MG/DL (0.70-1.30); GLOMERULAR FILTRATION RATE > 60.0 (>35); GLUCOSE, FASTING 102 MG/DL (74-106); POTASSIUM SERUM 4.6 MMOL/L (3.5-5.1); SODIUM LEVEL 139 MMOL/L (136-145)
== END ==
LOC: M SFHCADAM 14:02
PROVIDERS: ATTEND Physician Assistant
DX: K92.2 Gastrointestinal hemorrhage, unspecified (principal); E87.5 Hyperkalemia

== ENCOUNTER → 2022-07-16 | Outpatient (CLI) | payer BC, OTHER, MEDICARE | LOC: M LABSMTC 11:41 | PROVIDERS: ATTEND Anesthesiology | DX: Z01.812 Encounter for preprocedural laboratory examination (principal) ==

== ENCOUNTER → 2022-07-18 | Day surgery (SDC) | payer BC, OTHER, MEDICARE ==
[~2022-07-18] VITALS: Ht 185.4 cm; Wt 92.1 kg
[~2022-07-18] MED LIST changes: +NS 1,000 ML IV ONE
== END | disposition home or self-care (01) ==
LOC: M OPP 12:01
PROVIDERS: ATTEND Surgery
DX: K62.5 Hemorrhage of anus and rectum (principal); Z53.8 Procedure and treatment not carried out for other reasons

== ENCOUNTER → 2022-07-20 | Day surgery (SDC) | payer BC, OTHER, MEDICARE ==
[~2022-07-20] VITALS: Ht 185.4 cm; Wt 90.7 kg
[~2022-07-20] MED LIST changes: +AMLO1TAB24 PO; +ATOR1TAB21 PO; +LIDOCAINE 2% 100MG/5ML SDV (FOR ANES.) As Ordered ONE; +MAGN200T10 PO; -NS 1,000 ML IV ONE; +[UNRECOGNIZED DRUG - CODE] PO; +fentaNYL 100 MCG/2 ML INJECTION As Ordered ONE; +propofoL 500 MG/50 ML VIAL As Ordered ONE
[2022-07-20 14:11] VITALS: BP 124/63
== END | disposition home or self-care (01) ==
LOC: M OPP 11:35
PROVIDERS: ATTEND Surgery
DX: K64.9 Unspecified hemorrhoids (principal); D12.2 Benign neoplasm of ascending colon; K92.1 Melena; K57.30 Diverticulosis of large intestine without perforation or abscess without bleeding; D50.9 Iron deficiency anemia, unspecified; K22.89 Other specified disease of esophagus; K31.7 Polyp of stomach and duodenum; I10 Essential (primary) hypertension; E78.00 Pure hypercholesterolemia, unspecified; J44.9 Chronic obstructive pulmonary disease, unspecified; I48.91 Unspecified atrial fibrillation; Z79.82 Long term (current) use of aspirin; Z79.02 Long term (current) use of antithrombotics/antiplatelets; Z79.52 Long term (current) use of systemic steroids; Z79.899 Other long term (current) drug therapy; Z80.0 Family history of malignant neoplasm of digestive organs; Z95.0 Presence of cardiac pacemaker; Z95.5 Presence of coronary angioplasty implant and graft
CPT/HCPCS: 43251; 45380; 88305; J3010

== ENCOUNTER 2022-07-24 14:37 | Inpatient (IN) | payer BC, OTHER, MEDICARE ==
[~2022-07-24] VITALS: Ht 185.4 cm; Wt 92.5 kg
[~2022-07-24 14:37] MED LIST changes: -AMLO1TAB24 PO; -ATOR1TAB21 PO; -LIDOCAINE 2% 100MG/5ML SDV (FOR ANES.) As Ordered ONE; -MAGN200T10 PO; -[UNRECOGNIZED DRUG - CODE] PO; -fentaNYL 100 MCG/2 ML INJECTION As Ordered ONE; -propofoL 500 MG/50 ML VIAL As Ordered ONE
[2022-07-24 15:52] LABS: BASO % 0.3 % (0.0-1.0); EOS # 0.2 10^3/uL (0.0-0.5); EOS % 2.6 % (0.0-3.0); HEMATOCRIT 46.8 % (42.0-52.0); HEMOGLOBIN 14.9 g/dl (13.5-17.5); LYMPH # 1.5 10^3/uL (1.5-5.0); LYMPH % 20.4 % (24.0-44.0); MEAN CORPUSCULAR HEMOGLOBIN 30.4 pg (27.0-33.0); MEAN CORPUSCULAR HGB CONC 31.8 g/dl (32.0-36.5); MEAN CORPUSCULAR VOLUME 95.5 fl (80.0-96.0); MONO # 0.9 10^3/uL (0.0-0.8); MONO % 12.8 % (2.0-8.0); NEUTROPHILS # 4.6 10^3/uL (1.5-8.5); NEUTROPHILS % 63.6 % (36.0-66.0); PLATELET COUNT, AUTOMATED 143 10^3/uL (150-450); WHITE BLOOD COUNT 7.2 10^3/uL (4.0-10.0)
[2022-07-24 16:04] LABS: INR 1.51; PARTIAL THROMBOPLASTIN TIME 35.2 SECONDS (24.8-34.2); PROTHROMBIN TIME 18.5 SECONDS (12.5-14.5)
[2022-07-24 16:18] LABS: BLOOD UREA NITROGEN 19 MG/DL (9-23); CALCIUM LEVEL 8.8 MG/DL (8.3-10.6); CARBON DIOXIDE LEVEL 27 MMOL/L (20-31); CHLORIDE LEVEL 107 MMOL/L (98-107); CK-MB VALUE MASS 1.8 NG/ML (<3.6); CREATININE FOR GFR 0.77 MG/DL (0.70-1.30); GLOMERULAR FILTRATION RATE > 60.0 (>35); GLUCOSE, FASTING 93 MG/DL (74-106); POTASSIUM SERUM 4.4 MMOL/L (3.5-5.1); SODIUM LEVEL 141 MMOL/L (136-145)
[2022-07-24 16:19] LABS: CPK CREATINE PHOSPHOKINASE 75 U/L (46-171)
[2022-07-24 16:22] LABS: RSV AMPLIFICATION NEGATIVE (NEGATIVE)
[2022-07-24] MEDS ORDERED: ISOVUE-370 76% 100ML VIAL As Ordered ONE (16:32)
[2022-07-24] MEDS ORDERED: [UNRECOGNIZED DRUG - CODE] PO (17:34)
[2022-07-24] MEDS ORDERED: VENTAER INH (17:34)
[2022-07-24] MEDS ORDERED: MAGN200T10 PO (17:34)
[2022-07-24] MEDS ORDERED: HOME MED LIST COMPLETE! XX SCH (17:35)
[2022-07-24] MEDS ORDERED: ACETAMINOPHEN TAB 650MG DOSE (2X325MG) PO PRN (18:20)
[2022-07-24] MEDS ORDERED: LABETALOL 100MG/20ML VIAL IV PRN (18:35)
[2022-07-24] MEDS ORDERED: ALBUTEROL 90 MCG/ACT 8GM HFA INHALER INH PRN (18:35)
[2022-07-24 19:10] LABS: HEMOGLOBIN A1c 5.7 % (4.0-6.0)
[2022-07-24 19:14] LABS: CHOLESTEROL LEVEL 109 MG/DL (<200); CHOLESTEROL RISK RATIO 3.19 (<5); HDL CHOLESTEROL 34.1 MG/DL (>40); LDL CHOLESTEROL 46.9 MG/DL (<100); NON-HDL-C 74.9 MG/DL; TRIGLYCERIDES LEVEL 140 MG/DL (<150)
[2022-07-24] MEDS: RIVAROXABAN 20MG TAB (XARELTO) PO SCH (19:38)
[2022-07-24 21:10] VITALS: BP 190/90
[2022-07-24] MEDS: TAMSULOSIN 0.4 MG CAP PO SCH (21:43)
[2022-07-24] MEDS: DUTASTERIDE 0.5 MG CAP (AVODART) PO SCH (21:54)
[2022-07-25] VITALS (7 sets, daily range): BP systolic 158–185; BP diastolic 74–93
[2022-07-25] MEDS ORDERED: EXCEDRIN MIGRAINE TABLET PO ONE (01:00)
[2022-07-25 07:40] LABS: HEMATOCRIT 44.3 % (42.0-52.0); HEMOGLOBIN 14.2 g/dl (13.5-17.5); MEAN CORPUSCULAR HEMOGLOBIN 30.1 pg (27.0-33.0); MEAN CORPUSCULAR HGB CONC 32.1 g/dl (32.0-36.5); MEAN CORPUSCULAR VOLUME 93.9 fl (80.0-96.0); PLATELET COUNT, AUTOMATED 132 10^3/uL (150-450); RED BLOOD COUNT 4.72 10^6/uL (4.30-6.10); WHITE BLOOD COUNT 7.4 10^3/uL (4.0-10.0)
[2022-07-25] MEDS ORDERED: METOCLOPRAMIDE INJ 10MG/2ML VIAL IV ONE (07:40)
[2022-07-25] MEDS ORDERED: diphenhydrAMINE 50MG/ML VIAL IV ONE (07:40)
[2022-07-25] MEDS ORDERED: NS 500 ML IV ONE (07:40)
[2022-07-25] MEDS ORDERED: KETOROLAC 30 MG/ML 1ML VIAL IV ONE (07:40)
[2022-07-25 07:59] LABS: BLOOD UREA NITROGEN 14 MG/DL (9-23); CALCIUM LEVEL 8.5 MG/DL (8.3-10.6); CARBON DIOXIDE LEVEL 25 MMOL/L (20-31); CHLORIDE LEVEL 107 MMOL/L (98-107); CREATININE FOR GFR 0.74 MG/DL (0.70-1.30); GLOMERULAR FILTRATION RATE > 60.0 (>35); GLUCOSE, FASTING 118 MG/DL (74-106); POTASSIUM SERUM 4.4 MMOL/L (3.5-5.1); SODIUM LEVEL 137 MMOL/L (136-145)
[2022-07-25] MEDS: BUDESONIDE 180MCG INHALER (PULMICORT FLEXHALER) INH SCH ×2 (08:00→19:56)
[2022-07-25] MEDS ORDERED: **NOTE PATIENT COMMENT** MISC XX SCH (08:40)
[2022-07-25] MEDS ORDERED: REYVOW PO PRN (08:50)
[2022-07-25] MEDS: ASPIRIN 81MG ENTERIC TABLET PO SCH (09:01)
[2022-07-25] MEDS: DIGOXIN 0.125 MG TAB PO SCH (09:02)
[2022-07-25] MEDS: MAGNESIUM OXIDE 400MG TAB (MAG-OX) PO SCH (09:02)
[2022-07-25] MEDS: ATORVASTATIN 20 MG TAB PO SCH (09:02)
[2022-07-25] MEDS: OMEPRAZOLE 20MG CAP PO SCH (09:05)
[2022-07-25] MEDS: RIVAROXABAN 20MG TAB (XARELTO) PO SCH (18:10)
[2022-07-25] MEDS: TAMSULOSIN 0.4 MG CAP PO SCH (20:15)
[2022-07-25] MEDS: DUTASTERIDE 0.5 MG CAP (AVODART) PO SCH (20:15)
[2022-07-26] VITALS (10 sets, daily range): BP systolic 152–193; BP diastolic 68–94
[2022-07-26] MEDS ORDERED: NITROGLYCERIN 0.4MG SUBL TABLET SL PRN (07:00)
[2022-07-26] MEDS: BUDESONIDE 180MCG INHALER (PULMICORT FLEXHALER) INH SCH (07:05)
[2022-07-26] MEDS ORDERED: atenoloL 25 MG TAB PO SCH (09:00)
[2022-07-26] MEDS: OMEPRAZOLE 20MG CAP PO SCH (09:22)
[2022-07-26] MEDS: ATORVASTATIN 20 MG TAB PO SCH (09:22)
[2022-07-26] MEDS: ASPIRIN 81MG ENTERIC TABLET PO SCH (09:22)
[2022-07-26] MEDS: MAGNESIUM OXIDE 400MG TAB (MAG-OX) PO SCH (09:22)
[2022-07-26] MEDS: DIGOXIN 0.125 MG TAB PO SCH (09:24)
[2022-07-26 11:54] LABS: MAGNESIUM LEVEL 1.8 MG/DL (1.8-2.4)
[2022-07-26 11:56] LABS: DIGOXIN LEVEL 0.5 NG/ML (0.8-2.0)
[2022-07-26] MEDS ORDERED: LABETALOL 100MG/20ML VIAL IV ONE (12:05)
[2022-07-26] MEDS ORDERED: LABETALOL 100MG/20ML VIAL IV STA (13:48)
[2022-07-26] MEDS ORDERED: ATOR1TAB21 PO (16:03)
[2022-07-26] MEDS ORDERED: AMLO1TAB24 PO (16:03)
[2022-07-26] MEDS: RIVAROXABAN 20MG TAB (XARELTO) PO SCH (18:02)
[2022-07-27] MEDS ORDERED: ATOR40TA75 PO (16:48)
[2022-07-27] MEDS ORDERED: AMLO1TAB24 PO (16:48)
== END 2022-07-26 18:12 | disposition home or self-care (01) | DRG 45 ==
LOC: M ED 14:37 → M ED INP 18:00 → M PCU 21:09 → OBSVTOIN 07-25 14:27
PROVIDERS: ADMIT Internal Medicine; ATTEND Internal Medicine
DX: I63.9 Cerebral infarction, unspecified (principal); I25.2 Old myocardial infarction; I48.91 Unspecified atrial fibrillation; G43.909 Migraine, unspecified, not intractable, without status migrainosus; J44.9 Chronic obstructive pulmonary disease, unspecified; I10 Essential (primary) hypertension; E78.5 Hyperlipidemia, unspecified; K21.9 Gastro-esophageal reflux disease without esophagitis; I25.10 Atherosclerotic heart disease of native coronary artery without angina pectoris; I65.23 Occlusion and stenosis of bilateral carotid arteries; N40.0 Benign prostatic hyperplasia without lower urinary tract symptoms; R47.01 Aphasia; M19.90 Unspecified osteoarthritis, unspecified site; R73.03 Prediabetes; F41.8 Other specified anxiety disorders; Z85.828 Personal history of other malignant neoplasm of skin; Z95.0 Presence of cardiac pacemaker; Z95.5 Presence of coronary angioplasty implant and graft; Z98.41 Cataract extraction status, right eye; Z98.42 Cataract extraction status, left eye; Z90.49 Acquired absence of other specified parts of digestive tract; Z87.891 Personal history of nicotine dependence; Z20.822 Contact with and (suspected) exposure to COVID-19; Z79.82 Long term (current) use of aspirin; Z79.899 Other long term (current) drug therapy; Z88.0 Allergy status to penicillin; Z88.2 Allergy status to sulfonamides

== ENCOUNTER 2022-07-27 10:16 | Inpatient (IN) | payer BC, OTHER, MEDICARE ==
[~2022-07-27] VITALS: Ht 185.4 cm; Wt 90.9 kg
[~2022-07-27 10:16] MED LIST changes: +AMLO1TAB24 PO; +ATOR1TAB21 PO; +MAGN200T10 PO; +[UNRECOGNIZED DRUG - CODE] PO
[2022-07-27 11:29] LABS: BASO % 0.4 % (0.0-1.0); EOS # 0.2 10^3/uL (0.0-0.5); EOS % 2.2 % (0.0-3.0); HEMATOCRIT 48.6 % (42.0-52.0); HEMOGLOBIN 15.7 g/dl (13.5-17.5); LYMPH # 1.1 10^3/uL (1.5-5.0); LYMPH % 14.6 % (24.0-44.0); MEAN CORPUSCULAR HEMOGLOBIN 30.4 pg (27.0-33.0); MEAN CORPUSCULAR HGB CONC 32.3 g/dl (32.0-36.5); MONO # 0.8 10^3/uL (0.0-0.8); NEUTROPHILS # 5.5 10^3/uL (1.5-8.5); NEUTROPHILS % 72.5 % (36.0-66.0); PLATELET COUNT, AUTOMATED 151 10^3/uL (150-450); RED BLOOD COUNT 5.17 10^6/uL (4.30-6.10); WHITE BLOOD COUNT 7.6 10^3/uL (4.0-10.0)
[2022-07-27 11:39] LABS: ERYTHROCYTE SEDIMENTATION RATE 12 mm/hr (0-20)
[2022-07-27 11:45] LABS: INR 1.99; PROTHROMBIN TIME 22.9 SECONDS (12.5-14.5)
[2022-07-27 11:46] LABS: PARTIAL THROMBOPLASTIN TIME 38.9 SECONDS (24.8-34.2)
[2022-07-27 12:30] LABS: RSV AMPLIFICATION NEGATIVE (NEGATIVE)
[2022-07-27 12:49] LABS: C REACTIVE PROTEIN QUANTITATIV < 0.40 MG/DL (<1.0); LIPASE 23 U/L (12-53)
[2022-07-27 12:50] LABS: CPK CREATINE PHOSPHOKINASE 33 U/L (46-171)
[2022-07-27 13:11] LABS: ALBUMIN 3.9 G/DL (3.2-5.2); ALKALINE PHOSPHATASE 97 U/L (46-116); ALT/SGPT 21 U/L (7.0-40); AST/SGOT 25 U/L (<34); BILIRUBIN,DIRECT 0.4 MG/DL (<0.4); BILIRUBIN,TOTAL 1.1 MG/DL (0.3-1.2); BLOOD UREA NITROGEN 11 MG/DL (9-23); CALCIUM LEVEL 8.9 MG/DL (8.3-10.6); CARBON DIOXIDE LEVEL 28 MMOL/L (20-31); CHLORIDE LEVEL 105 MMOL/L (98-107); CK-MB VALUE MASS < 1.0 NG/ML (<3.6); CREATININE FOR GFR 0.74 MG/DL (0.70-1.30); GLOMERULAR FILTRATION RATE > 60.0 (>35); GLUCOSE, FASTING 107 MG/DL (74-106); MB/CK RELATIVE INDEX 3.03 (< OR =4); POTASSIUM SERUM 4.7 MMOL/L (3.5-5.1); SODIUM LEVEL 138 MMOL/L (136-145); THYROID STIMULATING HORMONE 0.784 uIU/ML (0.55-4.78)
[2022-07-27] MEDS ORDERED: LABETALOL 100MG/20ML VIAL IV STA (14:03)
[2022-07-27] MEDS ORDERED: hydrALAZINE 20MG/ML 1ML VIAL IV PRN ×2 (15:30→19:15)
[2022-07-27] MEDS ORDERED: METOCLOPRAMIDE INJ 10MG/2ML VIAL IV ONE (16:05)
[2022-07-27] MEDS ORDERED: ACETAMINOPHEN 500 MG TAB PO ONE (16:30)
[2022-07-27] MEDS ORDERED: AMLO1TAB24 PO (16:48)
[2022-07-27] MEDS ORDERED: ATOR40TA75 PO (16:48)
[2022-07-27] MEDS ORDERED: HOME MED LIST COMPLETE! XX SCH (16:50)
[2022-07-27] MEDS ORDERED: hydrALAZINE 20MG/ML 1ML VIAL IV ONE (17:00)
[2022-07-27 17:22] LABS: TOTAL PROTEIN 6.3 G/DL (5.7-8.2)
[2022-07-27 17:51] LABS: CK-MB VALUE MASS < 1.0 NG/ML (<3.6)
[2022-07-27 17:53] LABS: CPK CREATINE PHOSPHOKINASE 35 U/L (46-171); MB/CK RELATIVE INDEX 2.85 (< OR =4)
[2022-07-27] MEDS: RIVAROXABAN 20MG TAB (XARELTO) PO SCH (18:15)
[2022-07-27] MEDS: BUDESONIDE 0.25 MG/2 ML INHALATION SUSPENSION INH SCH (19:09)
[2022-07-27] MEDS ORDERED: atenoloL 25 MG TAB PO SCH (21:00)
[2022-07-27] MEDS ORDERED: LOSARTAN 25 MG TAB PO SCH (21:00)
[2022-07-27] MEDS: ATORVASTATIN 20 MG TAB PO SCH (21:43)
[2022-07-27] MEDS: TAMSULOSIN 0.4 MG CAP PO SCH (21:43)
[2022-07-27] MEDS ORDERED: ISOSORBIDE DIN (ISORDIL) 10MG TAB PO SCH (22:00)
[2022-07-28] MEDS ORDERED: **hydrALAZINE** 10 MG TAB PO SCH
[2022-07-28 05:30] LABS: HEMATOCRIT 46.2 % (42.0-52.0); MEAN CORPUSCULAR HEMOGLOBIN 30.2 pg (27.0-33.0); MEAN CORPUSCULAR HGB CONC 32.5 g/dl (32.0-36.5); PLATELET COUNT, AUTOMATED 145 10^3/uL (150-450); RED BLOOD COUNT 4.97 10^6/uL (4.30-6.10); WHITE BLOOD COUNT 7.3 10^3/uL (4.0-10.0)
[2022-07-28 05:46] LABS: BLOOD UREA NITROGEN 13 MG/DL (9-23); CALCIUM LEVEL 8.8 MG/DL (8.3-10.6); CARBON DIOXIDE LEVEL 24 MMOL/L (20-31); CHLORIDE LEVEL 106 MMOL/L (98-107); CREATININE FOR GFR 0.65 MG/DL (0.70-1.30); GLOMERULAR FILTRATION RATE > 60.0 (>35); GLUCOSE, FASTING 108 MG/DL (74-106); POTASSIUM SERUM 4.5 MMOL/L (3.5-5.1); SODIUM LEVEL 136 MMOL/L (136-145)
[2022-07-28] MEDS: ASPIRIN 81MG CHEW TABLET PO SCH (07:47)
[2022-07-28] MEDS: MULTIVITAMINS/MINERALS THERAP 1 TAB PO SCH (07:48)
[2022-07-28] MEDS: OMEPRAZOLE 20MG CAP PO SCH (07:48)
[2022-07-28] MEDS: DIGOXIN 0.125 MG TAB PO SCH (07:49)
[2022-07-28] MEDS ORDERED: LOSARTAN 50MG TABLET PO ONE ×2 (08:00→13:15)
[2022-07-28] MEDS ORDERED: atenoloL 25 MG TAB PO ONE ×2 (08:00→18:30)
[2022-07-28] MEDS: BUDESONIDE 0.25 MG/2 ML INHALATION SUSPENSION INH SCH ×2 (08:11→20:10)
[2022-07-28] MEDS ORDERED: amLODIPine 5 MG TAB PO SCH (09:00)
[2022-07-28] MEDS ORDERED: ACETAMINOPHEN 500 MG TAB PO ONE (13:30)
[2022-07-28] MEDS ORDERED: METOCLOPRAMIDE INJ 10MG/2ML VIAL IV ONE (13:30)
[2022-07-28] MEDS ORDERED: MORPHINE 2 MG/ML 1ML VIAL IV ONE (13:30)
[2022-07-28 14:40] VITALS: BP 152/70
[2022-07-28] MEDS: RIVAROXABAN 20MG TAB (XARELTO) PO SCH (17:32)
[2022-07-28 18:44] VITALS: BP 115/76
[2022-07-28] MEDS ORDERED: ACETAMINOPHEN 500 MG TAB PO PRN (19:20)
[2022-07-28 20:06] VITALS: BP 118/52
[2022-07-28] MEDS: ATORVASTATIN 20 MG TAB PO SCH (22:03)
[2022-07-28] MEDS: TAMSULOSIN 0.4 MG CAP PO SCH (22:03)
[2022-07-28] MEDS: ACETAMINOPHEN 500 MG TAB PO SCH (22:04)
[2022-07-29] MEDS ORDERED: UNRESOLVED PATIENT OWN MED ORDER XX SCH (00:01)
[2022-07-29] MEDS ORDERED: ONDANSETRON 4MG 2ML VIAL IV PRN (05:40)
[2022-07-29 06:06] LABS: HEMATOCRIT 48.4 % (42.0-52.0); HEMOGLOBIN 15.9 g/dl (13.5-17.5); MEAN CORPUSCULAR HEMOGLOBIN 30.5 pg (27.0-33.0); MEAN CORPUSCULAR HGB CONC 32.9 g/dl (32.0-36.5); MEAN CORPUSCULAR VOLUME 92.7 fl (80.0-96.0); PLATELET COUNT, AUTOMATED 150 10^3/uL (150-450); RED BLOOD COUNT 5.22 10^6/uL (4.30-6.10)
[2022-07-29 06:08] VITALS: BP 150/78
[2022-07-29 06:24] LABS: BLOOD UREA NITROGEN 18 MG/DL (9-23); CALCIUM LEVEL 8.9 MG/DL (8.3-10.6); CARBON DIOXIDE LEVEL 23 MMOL/L (20-31); CHLORIDE LEVEL 104 MMOL/L (98-107); CREATININE FOR GFR 0.78 MG/DL (0.70-1.30); GLOMERULAR FILTRATION RATE > 60.0 (>35); GLUCOSE, FASTING 137 MG/DL (74-106); POTASSIUM SERUM 4.4 MMOL/L (3.5-5.1); SODIUM LEVEL 136 MMOL/L (136-145)
[2022-07-29] MEDS: BUDESONIDE 0.25 MG/2 ML INHALATION SUSPENSION INH SCH ×2 (07:20→19:29)
[2022-07-29] MEDS: ASPIRIN 81MG CHEW TABLET PO SCH (08:24)
[2022-07-29] MEDS: OMEPRAZOLE 20MG CAP PO SCH (08:24)
[2022-07-29] MEDS: MULTIVITAMINS/MINERALS THERAP 1 TAB PO SCH (08:24)
[2022-07-29] MEDS: DIGOXIN 0.125 MG TAB PO SCH (08:25)
[2022-07-29] MEDS ORDERED: atenoloL 25 MG TAB PO ONE ×2 (08:30→13:30)
[2022-07-29] MEDS ORDERED: LOSARTAN 50MG TABLET PO SCH ×3 (09:00)
[2022-07-29] MEDS ORDERED: atenoloL 25 MG TAB PO SCH (09:00)
[2022-07-29] MEDS ORDERED: LOSARTAN 25 MG TAB PO SCH (09:00)
[2022-07-29] MEDS ORDERED: METOCLOPRAMIDE INJ 10MG/2ML VIAL IV ONE (09:05)
[2022-07-29] MEDS ORDERED: ACETAMINOPHEN 500 MG TAB PO ONE (09:05)
[2022-07-29] MEDS ORDERED: REYVOW PO PRN ×2 (09:05→11:00)
[2022-07-29] MEDS ORDERED: LOSARTAN 25 MG TAB PO ONE (12:00)
[2022-07-29 14:00] VITALS: BP 153/84
[2022-07-29] MEDS: MOM 30ML SUSPENSION UDC PO SCH ×4 (14:03→22:13)
[2022-07-29] MEDS: SENOKOT S TAB PO SCH ×2 (14:04→22:17)
[2022-07-29 15:37] VITALS: BP 135/70
[2022-07-29] MEDS: RIVAROXABAN 20MG TAB (XARELTO) PO SCH (17:34)
[2022-07-29 20:00] VITALS: BP 138/73
[2022-07-29] MEDS: ACETAMINOPHEN 500 MG TAB PO SCH (21:00)
[2022-07-29 22:06] VITALS: BP 161/84
[2022-07-29] MEDS: ATORVASTATIN 20 MG TAB PO SCH (22:17)
[2022-07-29] MEDS: TAMSULOSIN 0.4 MG CAP PO SCH (22:24)
[2022-07-29] MEDS ORDERED: ISOVUE-370 76% 100ML VIAL As Ordered ONE (23:05)
[2022-07-30] MEDS: MOM 30ML SUSPENSION UDC PO SCH ×2 (01:00→05:00)
[2022-07-30] MEDS ORDERED: MOM 30ML SUSPENSION UDC PO PRN (05:50)
[2022-07-30 06:00] VITALS: BP 153/82
[2022-07-30 06:35] LABS: HEMATOCRIT 44.7 % (42.0-52.0); HEMOGLOBIN 14.5 g/dl (13.5-17.5); MEAN CORPUSCULAR HEMOGLOBIN 30.3 pg (27.0-33.0); MEAN CORPUSCULAR HGB CONC 32.4 g/dl (32.0-36.5); MEAN CORPUSCULAR VOLUME 93.3 fl (80.0-96.0); PLATELET COUNT, AUTOMATED 151 10^3/uL (150-450); RED BLOOD COUNT 4.79 10^6/uL (4.30-6.10); WHITE BLOOD COUNT 7.3 10^3/uL (4.0-10.0)
[2022-07-30 06:58] LABS: BLOOD UREA NITROGEN 18 MG/DL (9-23); CALCIUM LEVEL 8.2 MG/DL (8.3-10.6); CARBON DIOXIDE LEVEL 27 MMOL/L (20-31); CHLORIDE LEVEL 104 MMOL/L (98-107); CREATININE FOR GFR 0.73 MG/DL (0.70-1.30); GLOMERULAR FILTRATION RATE > 60.0 (>35); GLUCOSE, FASTING 106 MG/DL (74-106); SODIUM LEVEL 137 MMOL/L (136-145)
[2022-07-30] MEDS: BUDESONIDE 0.25 MG/2 ML INHALATION SUSPENSION INH SCH (08:12)
[2022-07-30] MEDS ORDERED: atenoloL 25 MG TAB PO SCH ×2 (09:00)
[2022-07-30] MEDS ORDERED: LOSARTAN 50MG TABLET PO SCH (09:00)
[2022-07-30] MEDS: SENOKOT S TAB PO SCH (09:00)
[2022-07-30] MEDS: MULTIVITAMINS/MINERALS THERAP 1 TAB PO SCH (09:34)
[2022-07-30] MEDS: OMEPRAZOLE 20MG CAP PO SCH (09:34)
[2022-07-30] MEDS: ASPIRIN 81MG CHEW TABLET PO SCH (09:36)
[2022-07-30] MEDS: DIGOXIN 0.125 MG TAB PO SCH (09:36)
[2022-07-30] MEDS ORDERED: cloNIDine 0.1MG TABLET PO ONE ×2 (11:05→11:55)
[2022-07-30] MEDS ORDERED: atenoloL 25 MG TAB PO ONE (11:05)
[2022-07-30] MEDS ORDERED: ATEN50TA2 PO (11:09)
[2022-07-30] MEDS ORDERED: COZA50TA PO (11:09)
[2022-07-30] MEDS ORDERED: CLONI1TA PO (11:10)
[2022-07-30 13:06] VITALS: BP 152/76
[2022-07-30 13:10] VITALS: BP 152/72
[2022-07-30 14:00] VITALS: BP 132/75
[2022-07-30 14:18] VITALS: BP 112/60
[2022-07-31] MEDS ORDERED: atenoloL 50 MG TAB PO SCH (09:00)
== END 2022-07-30 16:00 | disposition home health service (06) | DRG 199 ==
LOC: EDBD 10:16 → M ED 10:16 → M ED INP 15:59 → ENRESERV 07-28 13:28 → M MSPAV 07-28 14:35
PROVIDERS: ADMIT General Practice; ATTEND General Practice
DX: I16.0 Hypertensive urgency (principal); I63.9 Cerebral infarction, unspecified; J44.9 Chronic obstructive pulmonary disease, unspecified; I48.20 Chronic atrial fibrillation, unspecified; E78.5 Hyperlipidemia, unspecified; G43.909 Migraine, unspecified, not intractable, without status migrainosus; F41.8 Other specified anxiety disorders; I65.21 Occlusion and stenosis of right carotid artery; I73.9 Peripheral vascular disease, unspecified; I25.2 Old myocardial infarction; Z79.01 Long term (current) use of anticoagulants; K21.9 Gastro-esophageal reflux disease without esophagitis; N40.0 Benign prostatic hyperplasia without lower urinary tract symptoms; M19.90 Unspecified osteoarthritis, unspecified site; R73.03 Prediabetes; Z85.828 Personal history of other malignant neoplasm of skin; Z95.0 Presence of cardiac pacemaker; Z98.41 Cataract extraction status, right eye; Z98.42 Cataract extraction status, left eye; Z90.49 Acquired absence of other specified parts of digestive tract; Z79.82 Long term (current) use of aspirin; Z79.899 Other long term (current) drug therapy; Z88.0 Allergy status to penicillin; Z88.2 Allergy status to sulfonamides; Z20.822 Contact with and (suspected) exposure to COVID-19; I10 Essential (primary) hypertension

== ENCOUNTER → 2022-07-31 | Outpatient (REF) | payer BC, OTHER, MEDICARE ==
[~2022-07-31] MED LIST changes: +ATOR40TA75 PO; +CLONI1TA PO; +COZA50TA PO
[2022-07-31 18:38] LABS: BLOOD UREA NITROGEN 21 MG/DL (9-23); CALCIUM LEVEL 9.6 MG/DL (8.3-10.6); CARBON DIOXIDE LEVEL 29 MMOL/L (20-31); CHLORIDE LEVEL 101 MMOL/L (98-107); CREATININE FOR GFR 0.79 MG/DL (0.70-1.30); GLOMERULAR FILTRATION RATE > 60.0 (>35); GLUCOSE, FASTING 81 MG/DL (74-106); SODIUM LEVEL 137 MMOL/L (136-145)
== END ==
LOC: M LAB REF 17:10
PROVIDERS: ATTEND General Practice
DX: I16.0 Hypertensive urgency (principal)

== ENCOUNTER → 2022-08-01 | Outpatient (REF) | payer OTHER, MEDICARE ==
[2022-08-01 14:31] LABS: BLOOD UREA NITROGEN 23 MG/DL (9-23); CALCIUM LEVEL 9.6 MG/DL (8.3-10.6); CARBON DIOXIDE LEVEL 31 MMOL/L (20-31); CHLORIDE LEVEL 98 MMOL/L (98-107); CREATININE FOR GFR 0.83 MG/DL (0.70-1.30); GLOMERULAR FILTRATION RATE > 60.0 (>35); GLUCOSE, FASTING 74 MG/DL (74-106); POTASSIUM SERUM 5.1 MMOL/L (3.5-5.1); SODIUM LEVEL 136 MMOL/L (136-145)
== END ==
LOC: M SHH 13:30
PROVIDERS: ATTEND General Practice
DX: I16.0 Hypertensive urgency (principal)

== ENCOUNTER → 2022-09-26 | Outpatient (CLI) | payer BC, OTHER, MEDICARE ==
[~2022-09-26] MED LIST changes: -COZA50TA PO; +FLUT50SP17 NARES; -FLUTISP NARES; +LOSA-528 PO; -OFLO3OPSO OU; +OFLO5DRO OU; +SENN-186 PO; -SENN-80 PO
[2022-09-26 11:08] LABS: HEMATOCRIT 44.3 % (42.0-52.0); HEMOGLOBIN 13.8 g/dl (13.5-17.5); MEAN CORPUSCULAR HEMOGLOBIN 29.3 pg (27.0-33.0); MEAN CORPUSCULAR HGB CONC 31.2 g/dl (32.0-36.5); MEAN CORPUSCULAR VOLUME 94.1 fl (80.0-96.0); PLATELET COUNT, AUTOMATED 164 10^3/uL (150-450); RED BLOOD COUNT 4.71 10^6/uL (4.30-6.10); WHITE BLOOD COUNT 6.4 10^3/uL (4.0-10.0)
[2022-09-26 11:11] LABS: ALBUMIN 3.7 G/DL (3.2-5.2); ALKALINE PHOSPHATASE 106 U/L (46-116); ALT/SGPT 27 U/L (7.0-40); AST/SGOT 25 U/L (<34); BILIRUBIN,TOTAL 0.9 MG/DL (0.3-1.2); BLOOD UREA NITROGEN 17 MG/DL (9-23); CARBON DIOXIDE LEVEL 29 MMOL/L (20-31); CHLORIDE LEVEL 108 MMOL/L (98-107); CHOLESTEROL LEVEL 116 MG/DL (<200); CHOLESTEROL RISK RATIO 3.61 (<5); CREATININE FOR GFR 0.91 MG/DL (0.70-1.30); GLOMERULAR FILTRATION RATE > 60.0 (>35); GLUCOSE, FASTING 116 MG/DL (74-106); HDL CHOLESTEROL 32.1 MG/DL (>40); LDL CHOLESTEROL 54.1 MG/DL (<100); NON-HDL-C 83.9 MG/DL; POTASSIUM SERUM 4.8 MMOL/L (3.5-5.1); SODIUM LEVEL 142 MMOL/L (136-145); TOTAL PROTEIN 6.2 G/DL (5.7-8.2); TRIGLYCERIDES LEVEL 149 MG/DL (<150)
[2022-09-26 11:44] LABS: HEMOGLOBIN A1c 6.7 % (4.0-6.0)
== END ==
LOC: M PLALAB 07:32
PROVIDERS: ATTEND Family Medicine
DX: I65.29 Occlusion and stenosis of unspecified carotid artery (principal); D50.0 Iron deficiency anemia secondary to blood loss (chronic); E78.2 Mixed hyperlipidemia; E74.9 Disorder of carbohydrate metabolism, unspecified

== ENCOUNTER → 2022-10-31 | Outpatient (CLI) | payer BC, OTHER, MEDICARE | LOC: M PLALAB 09:28 | PROVIDERS: ATTEND Nurse Practitioner Women's Health | DX: R97.20 Elevated prostate specific antigen [PSA] (principal) ==

== ENCOUNTER → 2022-11-19 | Outpatient (CLI) | payer BC, OTHER, MEDICARE ==
[2022-11-19 15:38] LABS: BASO % 0.5 % (0.0-1.0); EOS # 0.2 10^3/uL (0.0-0.5); EOS % 2.6 % (0.0-3.0); HEMATOCRIT 45.6 % (42.0-52.0); HEMOGLOBIN 14.1 g/dl (13.5-17.5); LYMPH # 1.5 10^3/uL (1.5-5.0); LYMPH % 20.4 % (24.0-44.0); MEAN CORPUSCULAR HGB CONC 30.9 g/dl (32.0-36.5); MONO # 0.9 10^3/uL (0.0-0.8); MONO % 12.5 % (2.0-8.0); NEUTROPHILS # 4.7 10^3/uL (1.5-8.5); NEUTROPHILS % 63.7 % (36.0-66.0); PLATELET COUNT, AUTOMATED 155 10^3/uL (150-450); WHITE BLOOD COUNT 7.4 10^3/uL (4.0-10.0)
[2022-11-19 16:08] LABS: ALBUMIN 3.8 G/DL (3.2-5.2); BLOOD UREA NITROGEN 16 MG/DL (9-23); CALCIUM LEVEL 10.2 MG/DL (8.3-10.6); CARBON DIOXIDE LEVEL 31 MMOL/L (20-31); CHLORIDE LEVEL 106 MMOL/L (98-107); CREATININE FOR GFR 0.78 MG/DL (0.70-1.30); GLOMERULAR FILTRATION RATE > 60.0 (>35); GLUCOSE, FASTING 74 MG/DL (74-106); PHOSPHORUS LEVEL 4.2 MG/DL (2.4-5.1); POTASSIUM SERUM 5.3 MMOL/L (3.5-5.1); SODIUM LEVEL 140 MMOL/L (136-145)
== END ==
LOC: M PLALAB 13:09
PROVIDERS: ATTEND Internal Medicine Cardiovascular Disease
DX: I50.32 Chronic diastolic (congestive) heart failure (principal); I11.0 Hypertensive heart disease with heart failure; I48.21 Permanent atrial fibrillation; I05.0 Rheumatic mitral stenosis

== ENCOUNTER 2022-12-01 16:45 | Emergency (ER) | payer BC, OTHER, MEDICARE ==
[~2022-12-01] VITALS: Ht 185.4 cm; Wt 94.5 kg
[2022-12-01 17:13] LABS: VENOUS O2 SATURATION 98.8 % (60.0-80.0); VENOUS PARTIAL PRESSURE CO2 41.8 mmHg (38.0-50.0); VENOUS PARTIAL PRESSURE O2 147.4 mmHg (30.0-50.0); VENOUS PH 7.394 UNITS (7.330-7.430); VENOUS STANDARD HCO3 24.5 MMOL/L; VENOUS TOTAL CO2 26.2 MMOL/L (24.0-28.0)
[2022-12-01 17:19] LABS: BASO % 0.4 % (0.0-1.0); EOS # 0.2 10^3/uL (0.0-0.5); HEMATOCRIT 42.5 % (42.0-52.0); HEMOGLOBIN 13.8 g/dl (13.5-17.5); LYMPH % 27.9 % (24.0-44.0); MEAN CORPUSCULAR HEMOGLOBIN 30.3 pg (27.0-33.0); MEAN CORPUSCULAR HGB CONC 32.5 g/dl (32.0-36.5); MEAN CORPUSCULAR VOLUME 93.4 fl (80.0-96.0); MONO # 0.9 10^3/uL (0.0-0.8); MONO % 11.7 % (2.0-8.0); NEUTROPHILS # 4.1 10^3/uL (1.5-8.5); NEUTROPHILS % 56.7 % (36.0-66.0); PLATELET COUNT, AUTOMATED 144 10^3/uL (150-450); RED BLOOD COUNT 4.55 10^6/uL (4.30-6.10); WHITE BLOOD COUNT 7.3 10^3/uL (4.0-10.0)
[2022-12-01] MEDS ORDERED: FACTOR XA,INACTIVATED-ZHZO 400 MG in APPROPRIATE DILUENT 40 ML IV ONE (17:40)
[2022-12-01] MEDS ORDERED: niCARdipine IV 40 MG in IV 1 EA IV SCH (17:40)
[2022-12-01] MEDS ORDERED: ONDANSETRON 4MG 2ML VIAL IV ONE (17:45)
[2022-12-01 17:49] LABS: CK-MB VALUE MASS 2.3 NG/ML (<3.6); LIPASE 29 U/L (12-53)
[2022-12-01 17:50] LABS: AMYLASE 91 U/L (30-118); CPK CREATINE PHOSPHOKINASE 75 U/L (46-171); DIGOXIN LEVEL 0.2 NG/ML (0.8-2.0); MB/CK RELATIVE INDEX 3.06 (< OR =4)
[2022-12-01 17:51] LABS: ALKALINE PHOSPHATASE 101 U/L (46-116); ALT/SGPT 21 U/L (7.0-40); AST/SGOT 23 U/L (<34); BILIRUBIN,DIRECT 0.5 MG/DL (<0.4); BILIRUBIN,TOTAL 1.2 MG/DL (0.3-1.2); BLOOD UREA NITROGEN 13 MG/DL (9-23); CALCIUM LEVEL 8.5 MG/DL (8.3-10.6); CARBON DIOXIDE LEVEL 25 MMOL/L (20-31); CHLORIDE LEVEL 107 MMOL/L (98-107); CREATININE FOR GFR 0.77 MG/DL (0.70-1.30); GLOMERULAR FILTRATION RATE > 60.0 (>35); GLUCOSE, FASTING 131 MG/DL (74-106); POTASSIUM SERUM 4.4 MMOL/L (3.5-5.1); SODIUM LEVEL 141 MMOL/L (136-145); TOTAL PROTEIN 6.5 G/DL (5.7-8.2)
[2022-12-01] MEDS ORDERED: FACTOR XA,INACTIVATED-ZHZO 480 MG in APPROPRIATE DILUENT 48 ML IV ONE (18:00)
[2022-12-01 18:02] LABS: INR 2.04; PROTHROMBIN TIME 23.4 SECONDS (12.5-14.5)
[2022-12-01 18:03] LABS: PARTIAL THROMBOPLASTIN TIME 36.4 SECONDS (24.8-34.2)
[2022-12-01] MEDS ORDERED: METOCLOPRAMIDE INJ 10MG/2ML VIAL IV ONE (18:25)
[2022-12-01 19:05] VITALS: BP 116/60; TEMP 96.4; O2SAT 90
== END 2022-12-01 19:07 | disposition short-term general hospital (02) ==
LOC: M ED 16:45
DX: I61.5 Nontraumatic intracerebral hemorrhage, intraventricular (principal); I11.9 Hypertensive heart disease without heart failure; I25.10 Atherosclerotic heart disease of native coronary artery without angina pectoris; G43.909 Migraine, unspecified, not intractable, without status migrainosus; J44.9 Chronic obstructive pulmonary disease, unspecified; E78.5 Hyperlipidemia, unspecified; K21.9 Gastro-esophageal reflux disease without esophagitis; N40.0 Benign prostatic hyperplasia without lower urinary tract symptoms; Z95.0 Presence of cardiac pacemaker; Z87.891 Personal history of nicotine dependence; Z88.0 Allergy status to penicillin; Z88.2 Allergy status to sulfonamides; Z79.82 Long term (current) use of aspirin; Z79.899 Other long term (current) drug therapy; Z79.51 Long term (current) use of inhaled steroids
CPT/HCPCS: 70450; 71045; 80047; 80048; 80076; 80162; 82150; 82550; 82553; 82803; 83605; 83690; 84484; 85025; 85610; 85730; 87040; 87486; 87581; 87633; 87798; 93005; 93041; 96365; 96367; 96375; 99285; J2405; J2765; J7169